=== PATIENT | female | born 1935 | race Caucasian/White ===

== ENCOUNTER → 2017-03-11 | Outpatient (CLI) | payer MEDICARE ==
--- NOTE | 2017-03-11 17:30 | Diagnostic Imaging Report ---
Bilateral screening mammogram. The current study was also evaluated with a Computer Aided Detection (CAD) system. INDICATION: Screening. No current complaints stated on the questionnaire. COMPARISON: 12/06/15. FINDINGS: The breasts are composed of scattered fibroglandular densities. There are scattered benign-appearing calcifications seen. Allowing for technique and positional differences, no suspicious change is seen. IMPRESSION: No significant change. ACR BI-RADS Category 2: Benign findings. Result letter will be mailed to the patient. Note: At least 10% of breast cancer is not imaged by mammography. Dictated by: Dictated on workstation # [id number]
== END ==
LOC: RAD 11:32
PROVIDERS: ATTEND Internal Medicine
DX: Z12.31 Encounter for screening mammogram for malignant neoplasm of breast (principal)
CPT/HCPCS: 77067

== ENCOUNTER → 2017-12-23 | Outpatient (CLI) | payer MEDICARE ==
--- NOTE | 2017-12-23 15:47 | Diagnostic Imaging Report ---
PROCEDURE: US carotid duplex, bilateral. TECHNIQUE: Multiple real-time grayscale images were obtained over the carotid arteries in various projections, bilaterally. Additional duplex Doppler and color Doppler images were also obtained. INDICATION: Carotid stenosis. FINDINGS: There are no focally elevated velocities in either internal carotid artery. The ICA/CCA ratios are within normal limits, bilaterally. There is antegrade flow in the vertebral arteries, bilaterally. Grayscale images demonstrate minimal carotid plaque, bilaterally. IMPRESSION: Minimal bilateral carotid plaque however spectral analysis shows no evidence of a hemodynamically significant stenosis in either internal carotid artery. Dictated by: Dictated on workstation # [id number]
== END ==
LOC: RAD 14:56
PROVIDERS: ATTEND Internal Medicine
DX: I65.23 Occlusion and stenosis of bilateral carotid arteries (principal)
CPT/HCPCS: 93880

== ENCOUNTER 2018-04-14 13:48 | Observation (INO) | payer MEDICARE ==
[~2018-04-14] VITALS: Ht 165.1 cm; Wt 65.8 kg
[2018-04-14] MEDS ORDERED: NITROGLYCERIN 0.4 MG SL TABS BTL 25'S SL PRN (14:30)
[2018-04-14] MEDS ORDERED: ALPRAZolam 0.25 MG (XANAX) TAB PO PRN (14:30)
[2018-04-14] MEDS ORDERED: DOCUSATE SODIUM 100 MG (COLACE) CAP PO PRN (14:30)
[2018-04-14] MEDS ORDERED: ONDANSETRON 4 MG/2 ML (SDV) Z0FRAN IVP PRN (14:30)
[2018-04-14] MEDS ORDERED: IBUPROFEN TABLET 200 MG TAB PO PRN (14:30)
[2018-04-14] MEDS ORDERED: ACETAMINOPHEN 500 MG TAB (TYLENOL) PO PRN (14:30)
[2018-04-14] MEDS ORDERED: HYDROcodone/APAP 5 MG/325 MG (LORTAB) TAB PO PRN (14:30)
[2018-04-14] MEDS ORDERED: ASPIRIN 81 MG CHEW (CHILDREN'S ASA) PO NR (14:30)
[2018-04-14] MEDS ORDERED: fentaNYL INJECTION 100 MCG/2 ML AMP IVP PRN (14:30)
[2018-04-14 14:43] VITALS: BP 147/90
[2018-04-14] MEDS ORDERED: CATHETER FLUSH 10 ML SYR IV PRN (14:45)
[2018-04-14] MEDS ORDERED: AMLO2.5T PO (14:54)
[2018-04-14] MEDS ORDERED: ALPR0.5T7 PO (14:54)
[2018-04-14] MEDS ORDERED: LOVA40TA2 PO (14:54)
[2018-04-14 14:58] LABS: BASOPHILS % (AUTO) 1 % (0-10); EOSINOPHILS % (AUTO) 1 % (0-10); HEMATOCRIT 41 % (35-52); HEMOGLOBIN 14.3 G/DL (11.5-16.0); LYMPHOCYTES # (AUTO) 2.1 X 10^3 (1.0-4.0); LYMPHOCYTES % (AUTO) 26 % (12-44); MEAN CORPUSCULAR HEMOGLOBIN 31 PG (25-34); MEAN CORPUSCULAR HGB CONC 35 G/DL (32-36); MEAN CORPUSCULAR VOLUME 90 FL (80-99); MEAN PLATELET VOLUME 8.5 FL (7.4-10.4); MONOCYTES # (AUTO) 0.8 X 10^3 (0.0-1.0); MONOCYTES % (AUTO) 10 % (0-12); NEUTROPHILS % (AUTO) 63 % (42-75); PLATELET COUNT 334 10^3/uL (130-400); RED BLOOD COUNT 4.58 10^6/uL (4.35-5.85); RED CELL DISTRIBUTION WIDTH 12.9 % (10.0-14.5); WHITE BLOOD COUNT 7.9 10^3/uL (4.3-11.0)
--- NOTE | 2018-04-14 15:07 | Diagnostic Imaging Report ---
INDICATION: Chest pain. TIME OF EXAMINATION: 02:49 p.m. COMPARISON: No prior studies are available for comparison. FINDINGS: The heart size is normal. There are tiny calcified nodules in both lungs, likely granulomas. No infiltrate or failure is detected. No effusion or pneumothorax is seen. IMPRESSION: No acute cardiopulmonary process is detected. Dictated by: Dictated on workstation # [id number]
[2018-04-14] MEDS ORDERED: CHOL20003 PO (15:09)
[2018-04-14] MEDS ORDERED: OMG1KC PO (15:09)
[2018-04-14] MEDS ORDERED: MULT-35 PO (15:09)
[2018-04-14] MEDS ORDERED: VIT1CAPS9 PO (15:09)
[2018-04-14 15:19] LABS: PROTHROMBIN TIME PATIENT 13.4 SEC (12.2-14.7)
[2018-04-14 15:20] LABS: ALANINE AMINOTRANSFERASE 11 U/L (0-55); ALBUMIN 4.8 GM/DL (3.2-4.5); ALKALINE PHOSPHATASE 54 U/L (40-136); BILIRUBIN,TOTAL 0.5 MG/DL (0.1-1.0); BUN/CREATININE RATIO 15; CALCIUM 10.1 MG/DL (8.5-10.1); CARBON DIOXIDE 24 MMOL/L (21-32); CHLORIDE 102 MMOL/L (98-107); CREATININE SERUM 0.73 MG/DL (0.60-1.30); GFR ESTIMATED > 60; GLUCOSE 92 MG/DL (70-105); MAGNESIUM 2.1 MG/DL (1.8-2.4); POTASSIUM 4.4 MMOL/L (3.6-5.0); SODIUM 135 MMOL/L (135-145); TOTAL PROTEIN 7.4 GM/DL (6.4-8.2)
[2018-04-14 16:39] VITALS: BP 128/69
--- NOTE | 2018-04-14 16:59 | Consultation-Cardiology ---
HPI-Cardiology Cardiology Consultation Date of Consultation 04/14/18 Date of Admission Time Seen by Provider: 16:56 Indication: Short of breath HPI 82 years old lady with history of hypertension, hyperlipidemia, has been her usual state of health until recently when she started complaining of generalized fatigue and loss of energy. Shortness of breath on exertion and heaviness in her arms. No significant chest pain. No palpitation, syncope or near syncopal episodes. She was seen in Dr. Wiggins's office and admitted directly for evaluation Home Medications & Allergies Allergies: Coded Allergies: Penicillins (Verified Allergy, Unknown, 04/14/18) Home Medication List Reviewed: Yes MZL-Ialgnq-Aawooy Hx Patient Social History Alcohol Use: Occasionally Uses Recreational Drug Use: No Smoking Status: Never a Smoker Recent Foreign Travel: No Recent Infectious Disease Expo: No Recent Hopitalizations: No Physical Abuse Screen: No Sexual Abuse: No Immunizations Up To Date Date of Pneumonia Vaccine: April 14, 2015 Past Medical History discussed below Family Medical History Family Medical Hx non contributory Constitutional: see HPI, malaise, weakness EENTM: see HPI, no symptoms reported Respiratory: see HPI; No cough; dyspnea on exertion; No hemoptysis, No orthopnea, No phlegm, No short of breath, No stridor, No wheezing, No other Cardiovascular: see HPI, chest pain (arms heaviness) Gastrointestinal: no symptoms reported, see HPI Genitourinary: no symptoms reported, see HPI Musculoskeletal: no symptoms reported, see HPI Skin: no symptoms reported, see HPI Psychiatric/Neurological: No Symptoms Reported, See HPI Reviewed Test Results Reviewed Test Results Lab Laboratory Tests Test 04/14/18 14:45 Range/Units White Blood Count 7.9 4.3-11.0 10^3/uL Red Blood Count 4.58 4.35-5.85 10^6/uL Hemoglobin 14.3 11.5-16.0 G/DL Hematocrit 41 35-52 % Mean Corpuscular Volume 90 80-99 FL Mean Corpuscular Hemoglobin 31 25-34 PG Mean Corpuscular Hemoglobin Concent 35 32-36 G/DL Red Cell Distribution Width 12.9 10.0-14.5 % Platelet Count 334 130-400 10^3/uL Mean Platelet Volume 8.5 7.4-10.4 FL Neutrophils (%) (Auto) 63 42-75 % Lymphocytes (%) (Auto) 26 12-44 % Monocytes (%) (Auto) 10 0-12 % Eosinophils (%) (Auto) 1 0-10 % Basophils (%) (Auto) 1 0-10 % Neutrophils # (Auto) 5.0 1.8-7.8 X 10^3 Lymphocytes # (Auto) 2.1 1.0-4.0 X 10^3 Monocytes # (Auto) 0.8 0.0-1.0 X 10^3 Eosinophils # (Auto) 0.0 0.0-0.3 10^3/uL Basophils # (Auto) 0.0 0.0-0.1 10^3/uL Prothrombin Time 13.4 12.2-14.7 SEC INR Comment 1.0 0.8-1.4 Activated Partial Thromboplast Time 24 24-35 SEC Sodium Level 135 135-145 MMOL/L Potassium Level 4.4 3.6-5.0 MMOL/L Chloride Level 102 98-107 MMOL/L Carbon Dioxide Level 24 21-32 MMOL/L Anion Gap 9 5-14 MMOL/L Blood Urea Nitrogen 11 7-18 MG/DL Creatinine 0.73 0.60-1.30 MG/DL Estimat Glomerular Filtration Rate > 60 BUN/Creatinine Ratio 15 Glucose Level 92 70-105 MG/DL Calcium Level 10.1 8.5-10.1 MG/DL Magnesium Level 2.1 1.8-2.4 MG/DL Total Bilirubin 0.5 0.1-1.0 MG/DL Aspartate Amino Transf (AST/SGOT) 18 5-34 U/L Alanine Aminotransferase (ALT/SGPT) 11 0-55 U/L Alkaline Phosphatase 54 40-136 U/L Myoglobin 22.0 10.0-92.0 NG/ML Troponin I < 0.30 <0.30 NG/ML B-Type Natriuretic Peptide 84.8 <100.0 PG/ML Total Protein 7.4 6.4-8.2 GM/DL Albumin 4.8 H 3.2-4.5 GM/DL Physical Exam Vital Signs Vital Signs - First Documented 04/14/18 04/14/18 14:42 14:43 Temp 100.1 Pulse 100 Resp 20 B/P (MAP) 147/90 (109) Pulse Ox 93 O2 Delivery Room Air Capillary Refill : General Appearance: No Apparent Distress, WD/WN Eyes: Bilateral Eye Normal Inspection, Bilateral Eye PERRL, Bilateral Eye EOMI HEENT: PERRL/EOMI, TMs Normal, Normal ENT Inspection, Pharynx Normal Neck: Full Range of Motion, Normal Inspection, Non Tender, Supple, Carotid Bruit Respiratory: Chest Non Tender, Lungs Clear, Normal Breath Sounds, No Accessory Muscle Use, No Respiratory Distress Cardiovascular: Regular Rate, Rhythm, No Edema, No Gallop, No JVD, No Murmur, Normal Peripheral Pulses Gastrointestinal: Normal Bowel Sounds, No Organomegaly, No Pulsatile Mass, Non Tender, Soft Back: Normal Inspection, No CVA Tenderness, No Vertebral Tenderness Extremity: Normal Capillary Refill, Normal Inspection, Normal Range of Motion, Non Tender, No Calf Tenderness, No Pedal Edema Neurologic/Psychiatric: Alert, Oriented x3, No Motor/Sensory Deficits, Normal Mood/Affect Skin: Normal Color, Warm/Dry Lymphatic: No Adenopathy A/P-Cardiology Admission Diagnosis Shortness of breath Chest pain nonspecific etiology Hypertension Hyperlipidemia Assessment/Plan Shortness of breath on exertion, heaviness in the arms, atypical presentation. EKG and chronic enzymes did not show any acute abnormality. Planning to evaluate stress test. Hypertension, restart home medications and monitor blood pressure Hyperlipidemia, monitor lipids. Clinical Quality Measures DVT/VTE Risk/Contraindication: Risk Factor Score Per Nursin RFS Level Per Nursing on Admit: 2=Moderate HERMANN MENDOZA MD April 14, 2018 16:59
--- OUTSIDE RECORDS SUMMARY | 2018-04-14 19:29 | XMS REPORT | Clinical Summary ---
Author Author User, JOSE CARLOS Organization [facility] [place] Address Unknown Phone Unavailable Allergies, Adverse Reactions, Alerts Allergy Name Reaction Description Start Date Severity Status Provider PENICILLIN Critical Active Viki Wiggins Conditions or Problems Problem Name Problem Code Onset Date Status Entry Date Provider Comment Standard Description Annotate HYPERTENSION, BENIGN ESSENTIAL, SEVERE 401.1 Resolved Viki Wiggins Benign essential hypertension HYPERCHOLESTEROLEMIA 272.0 Active Viki Wiggins Pure hypercholesterolemia MALIGNANT MELANOMA, HX OF V10.82 Active Viki Wiggins Personal history of malignant melanoma of skin BASAL CELL CARCINOMA, 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 Viki Wiggins Other and unspecified malignant neoplasm of skin of other and unspecified parts of face POLYARTHRALGIA 719.49 Resolved Viki Wiggins Pain in joint involving multiple sites INSOMNIA, CHRONIC 780.52 Active Viki Wiggins Insomnia, unspecified OSTEOARTHRITIS 715.90 Active Viki Wiggins Osteoarthrosis, unspecified whether generalized or localized, involving unspecified site OSTEOPENIA 733.90 Active Viki Wiggins Disorder of bone and cartilage, unspecified ANEMIA 285.9 Resolved Viki Wiggins Anemia, unspecified MELANOMA 172.9 Active Viki Wiggins Melanoma of skin, site unspecified ELEVATED BLOOD PRESSURE WITHOUT DIAGNOSIS OF HYPERTENSION 796.2 Resolved Viki Wiggins Elevated blood pressure reading without diagnosis of hypertension TONGUE DISORDER 529.9 Resolved Viki Wiggins Unspecified condition of the tongue INFLUENZA W/RESPIRATORY MANIFESTATION NEC 487.1 Resolved Viki Wiggins Influenza with other respiratory manifestations HYPERGLYCEMIA, MILD 790.6 Resolved Viki Wiggins Other abnormal blood chemistry VACCINE AGAINST DISEASE NEC V05.8 Resolved Viki Wiggins Need for prophylactic vaccination and inoculation against other specified disease HYPERTENSION, ACCELERATED OR MALIGNANT 401.0 Active Viki Wiggins Malignant essential hypertension DIZZINESS 780.4 Resolved Viki Wiggins Dizziness and giddiness BRONCHITIS 490 Inactive Viki Wiggins Bronchitis, not specified as acute or chronic BRONCHITIS 490 Active Viki Wiggins Bronchitis, not specified as acute or chronic Medication List Medication Instructions Start Date Stop Date Generic Name NDC Status Provider Patient Instruction ROBITUSSIN A-C 10-100 MG/5ML SYRUP 1 teaspoon PO Q 4-6 hr prn ROBITUSSIN A-C 10-100 MG/5ML SYRUP No Longer Active Viki Wiggins BIAXIN 500 MG TAB 1 PO BID CLARITHROMYCIN 17753488736 No Longer Active Viki Wiggins ROBITUSSIN A-C 10-100 MG/5ML SYRUP 1 teaspoon PO Q 4-6 hr prn ROBITUSSIN A-C 10-100 MG/5ML SYRUP No Longer Active Viki Wiggins BIAXIN 500 MG TAB 1 PO BID CLARITHROMYCIN 31302305382 No Longer Active Viki Wiggins NORVASC 2.5 MG TAB 1 PO QD AMLODIPINE BESYLATE 88192334888 Active Claudette Christianson LUTEIN CAPS 1 PO daily LUTEIN CAPS 73999218757 Active Viki Wiggins FOSAMAX 70 MG TABS 1 PO Qweek ALENDRONATE SODIUM 19490383841 No Longer Active Viki Wiggins ZOSTAVAX 15731 UNT/0.65ML SOLR 1 injection once to prevent shingles ZOSTER VACCINE LIVE 91145602529 No Longer Active Viki Wiggins VITAMIN D 1000 UNIT TABS 1 po daily CHOLECALCIFEROL 57668388151 Active Viki Wiggins LOVASTATIN 40 MG TABS 1 po daily LOVASTATIN 04783176060 Active Claudette Christianson ROBITUSSIN A-C 10-100 MG/5ML SYRUP 5cc PO Q 4-6 hr prn ROBITUSSIN A-C 10-100 MG/5ML SYRUP 51927085107 No Longer Active Viki Wiggins KEFLEX 500 MG CAP 1 PO TID for 7 days CEPHALEXIN 71805387670 No Longer Active Viki Wiggins TAMIFLU 75 MG CAPS 1 PO BID OSELTAMIVIR PHOSPHATE 57568981647 No Longer Active Viki Wiggins NIACIN 250 MG TABS 1 PO daily NIACIN 53625787271 No Longer Active Viki Wiggins LIPITOR 20 MG TABS 1/2 PO QD ATORVASTATIN CALCIUM 16128089644 No Longer Active Ashvin Patel ASPIRIN 81 MG CHEW TAB 1 PO QOD ASPIRIN 14609882723 Active Viki Wiggins TUMS 500 1250 MG CHEW 3-4 a day for calcium CALCIUM CARBONATE 93125320366 Active Viki Wiggins MULTIVITAMINS TABS 1 po daily MULTIPLE VITAMIN 99238022784 Active Viki Wiggins ALPRAZOLAM 0.5 MG TABS take 1 at HS prn ALPRAZOLAM 43064706933 Active Claudette Christianson Immunizations Vaccine Administration Date Value Standard Description Influenza vaccine given done influenza virus vaccine, unspecified formulation Vital Signs Date Name Value Unit Range Description blood pressure, diastolic - 8462-4 60 mm[Hg] BP acuña blood pressure, systolic - 8480-6 126 mm[Hg] BP sys pulse rate E&M - 8867-4 68 /min Heart rate respiratory rate E&M - 9279-1 14 /min Resp rate temperature E&M 98.3 [degF] Body temperature blood pressure, diastolic - 8462-4 64 mm[Hg] BP acuña blood pressure, systolic - 8480-6 144 mm[Hg] BP sys pulse rate E&M - 8867-4 80 /min Heart rate respiratory rate E&M - 9279-1 14 /min Resp rate temperature E&M 98.3 [degF] Body temperature Diagnostic Results Date Name Value Unit Range Description Clinical Lists Update: CBC,CMP,FLP,TSH,HgA1c - Chemistry Estimated Glomerular Filtration Rate (calc) 91 mL/min/1.73m2 glucose, plasma fasting 115 mg/dL albumin, serum 4.1 g/dL alkaline phosphatase, serum 95 U/L urea nitrogen, blood 7 mg/dL calcium, serum 9.5 mg/dL chloride, serum 96 mmol/L cholesterol, serum 154 mg/dL cholesterol/HDL ratio, serum, percent 2.9 anion gap, serum 12 sodium, serum 132 mmol/L triglyceride, serum, fasting 77 mg/dL bilirubin, serum, total 0.7 mg/dL alanine aminotransferase (SGPT), serum 43 U/L aspartate aminotransferase (SGOT), serum 41 U/L protein, total, serum 6.7 g/dL potassium, serum 4.3 mmol/L LDL cholesterol, serum 86 mg/dL thyroid stimulating hormone, serum 4.37 u[iU]/mL hemoglobin A1C, blood, as % of total hemoglobin 5.9 % HDL cholesterol, serum 53.0 mg/dL creatinine, serum 0.7 mg/dL carbon dioxide, venous blood 28.0 mmol/L Clinical Lists Update: CBC,CMP,FLP,TSH,HgA1c - Hematology leukocyte count, blood 10.9 10*3/mm3 mean corpuscular volume, RBC 99 fL red blood cell distribution width 13.4 % hemoglobin, blood 13.2 g/dL platelet count 404 10*3/mm3 erythrocyte (RBC) count 4.24 10*6/mm3 hematocrit, blood 42 % Encounters Code Encounter Date Provider Facility CPT-30009 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, 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, 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 CPT-66182 Ofc Vst, Est Level III 20:21:40 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 Wiggins DO, FACP CPT-00242 Ofc Vst, Est Level III 15:15:10 CDT Viki Wiggins DO, FACP CPT-25994 Ofc Vst, Est Level IV 14:16:01 CDT Viki Wiggins DO, FACP CPT-73172 Ofc Vst, Est Level IV 11:16:23 CDT Claudette Sammy Wiggins DO, FACP CPT-81579 Ofc Vst, Est Level IV 09:58:06 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 Wiggins DO, FACP CPT-87400 Ofc Vst, Est Level IV 14:54:22 CDT Viki Wiggins DO, FACP CPT-71849 Ofc Vst, Est Level IV 10:31:31 [employer]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 Kayleen Wiggins Viki S Wiggins, DO, FACP CPT-88693 Ofc Vst, Est Level V 11:37:59 CDT Viki Kayleen Feliciano Wiggins, DO, FACP CPT-77189 Ofc Vst, Est Level I 09:04:44 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 Kayleen Feliciano Wiggins, DO, FACP CPT-75586 Ofc Vst, Est Level IV 10:52:15 [employer]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sobeida Beyer Feliciano Wiggins, DO, FACP CPT-02029 Ofc Vst, Est Level IV 10:36:54 CDT Viki Kayleen Feliciano Wiggins, DO, FACP CPT-08647 Ofc Vst, Est Level III 09:15:38 [employer]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, DO, FACP CPT-08450 Ofc Vst, Est Level III 10:04:26 CDT Viki Kayleen Feliciano Wiggins, DO, FACP CPT-04466 Ofc Vst, Est Level IV 10:54:41 CDT Viki Kayleen Feliciano Wiggins, DO, FACP CPT-81586 Ofc Vst, Est Level IV 11:29:12 [employer]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 Wiggins [facility] [place] CPT-31009 Ofc Vst, Est Level III 16:42:12 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 Wiggins [facility] [place] CPT-71250 Ofc Vst, Est Level IV 11:03:44 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 Wiggins [facility] [place] CPT-76732 Ofc Vst, Est Level IV 13:09:33 [employer]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 Wiggins [facility] [place] CPT-18484 Ofc Vst, Est Level IV 13:09:21 CDT Viki Wiggins [facility] [place] CPT-75229 Ofc Vst, New Level III 12:51:53 CDT Viki Wiggins [facility] [place] Procedures Code Procedure Name Date Entry Date Standard Description CPT-G0439 Medicare Annual Wellness Visit 13:07:51 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 CPT-G8443 E-Prescribing Medication Sent 20:21:40 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 CPT-G8445 E-Prescribing Not sent due to no medication given 16:30: 35 CDT CPT-G0439 Medicare Annual Wellness Visit 16:30:35 CDT CPT-G8445 E-Prescribing Not sent due to no medication given 15:15: 10 CDT CPT-G8445 E-Prescribing Not sent due to no medication given 14:16: 01 CDT CPT-G0402 Medicare Annual Wellness Visit Initial 16:01:30 CDT
--- OUTSIDE RECORDS SUMMARY | 2018-04-14 19:29 | XMS REPORT | Clinical Summary ---
Author Author User, JOSE CARLOS Organization [facility] [place] Address Unknown Phone Unavailable Allergies, Adverse Reactions, [...] tongue INFLUENZA W/RESPIRATORY MANIFESTATION NEC 487.1 Resolved Viik Wiggins Influenza with other respiratory manifestations HYPERGLYCEMIA, [...] 500 MG TAB 1 PO BID CLARITHROMYCIN 88966369153 No Longer Active Viki Wiggins ROBITUSSIN A-C 10-100 MG/5ML SYRUP 1 teaspoon PO Q 4-6 hr prn ROBITUSSIN A-C 10-100 MG/5ML SYRUP No Longer Active Viki Wiggins BIAXIN 500 MG TAB 1 PO BID CLARITHROMYCIN 75381796977 No Longer Active Viki Wiggins NORVASC 2.5 MG TAB 1 PO QD AMLODIPINE BESYLATE 38944516072 Active Claudette Christianson LUTEIN CAPS 1 PO daily LUTEIN CAPS 21438154304 Active Viki Wiggins FOSAMAX 70 MG TABS 1 PO Qweek ALENDRONATE SODIUM 85465356792 No Longer Active Viki Wiggins ZOSTAVAX 44962 UNT/0.65ML SOLR 1 injection once to prevent shingles ZOSTER VACCINE LIVE 93122561848 No Longer Active Viki Wiggins VITAMIN D 1000 UNIT TABS 1 po daily CHOLECALCIFEROL 56297755496 Active Viki Wiggins LOVASTATIN 40 MG TABS 1 po daily LOVASTATIN 82186924617 Active Claudette Christianson ROBITUSSIN A-C 10-100 MG/5ML SYRUP 5cc PO Q 4-6 hr prn ROBITUSSIN A-C 10-100 MG/5ML SYRUP 53429614506 No Longer Active Viki Wiggins KEFLEX 500 MG CAP 1 PO TID for 7 days CEPHALEXIN 21884368736 No Longer Active Viki Wiggins TAMIFLU 75 MG CAPS 1 PO BID OSELTAMIVIR PHOSPHATE 99228505546 No Longer Active Viki Wiggins NIACIN 250 MG TABS 1 PO daily NIACIN 90034704106 No Longer Active Viki Wiggins LIPITOR 20 MG TABS 1/2 PO QD ATORVASTATIN CALCIUM 25041738160 No Longer Active Ashvin Patel ASPIRIN 81 MG CHEW TAB 1 PO QOD ASPIRIN 87292521607 Active Viki Wiggins TUMS 500 1250 MG CHEW 3-4 a day for calcium CALCIUM CARBONATE 57660599922 Active Viki Wiggins MULTIVITAMINS TABS 1 po daily MULTIPLE VITAMIN 98669889424 Active Viki Wiggins ALPRAZOLAM 0.5 MG TABS take 1 at HS prn ALPRAZOLAM 01066085462 Active Claudette Christianson Immunizations Vaccine Administration Date [...] % Encounters Code Encounter Date Provider Facility CPT-82146 Ofc Vst, Est Level III 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, 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 CPT-46639 Ofc Vst, Est Level III 20:21:40 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 Viki Wiggins DO, FACP CPT-17690 Ofc Vst, Est Level III 15:15:10 CDT Viki Wiggins DO, FACP CPT-65863 Ofc Vst, Est Level IV 14:16:01 CDT Viki Wiggins DO, FACP CPT-22393 Ofc Vst, Est Level IV 11:16:23 CDT Claudette Sammy Wiggins DO, FACP CPT-89771 Ofc Vst, Est Level IV 09:58:06 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 Viki Wiggins DO, FACP CPT-24954 Ofc Vst, Est Level IV 14:54:22 CDT Viki Wiggins DO, FACP CPT-11485 Ofc Vst, Est Level IV 10:31:31 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 Viki Kayleen Wiggins Viki S Wiggins, DO, FACP CPT-23474 Ofc Vst, Est Level V 11:37:59 CDT Viki Wiggins, DO, FACP CPT-05753 Ofc Vst, Est Level I 09:04:44 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 Viki Wiggins, DO, FACP CPT-64524 Ofc Vst, Est Level IV 10:52:15 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 Viki Wiggins, DO, FACP CPT-68891 Ofc Vst, Est Level IV 10:36:54 CDT Viki Wiggins, DO, FACP CPT-85265 Ofc Vst, Est Level III 09:15:38 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 Viki Wiggins, DO, FACP CPT-90084 Ofc Vst, Est Level III 10:04:26 CDT Vikisobeida Wiggins, DO, FACP CPT-03613 Ofc Vst, Est Level IV 10:54:41 CDT Viki Wiggins, DO, FACP CPT-09037 Ofc Vst, Est Level IV 11:29:12 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 Viki Wiggins [facility] [place] CPT-30492 Ofc Vst, Est Level III 16:42:12 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 Viki Wiggins [facility] [place] CPT-40943 Ofc Vst, Est Level IV 11:03:44 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 Viki Wiggins [facility] [place] CPT-84098 Ofc Vst, Est Level IV 13:09:33 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 Viki Wiggins [facility] [place] CPT-16122 Ofc Vst, Est Level IV 13:09:21 CDT Viki Wiggins [facility] [place] CPT-38857 Ofc Vst, New Level III 12:51:53 CDT Viki Wiggins [facility] [place] Procedures Code Procedure Name Date Entry Date Standard Description CPT-G0439 Medicare Annual Wellness Visit 13:07:51 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
--- OUTSIDE RECORDS SUMMARY | 2018-04-14 19:29 | XMS REPORT | Clinical Summary ---
Author Author User, JOSE CARLOS Organization [facility] Address Unknown Phone Unavailable Allergies, Adverse Reactions, [...] 500 MG TAB 1 PO BID CLARITHROMYCIN [id number] No Longer Active Viki Wiggins ROBITUSSIN A-C 10-100 MG/5ML SYRUP 1 teaspoon PO Q 4-6 hr prn ROBITUSSIN A-C 10-100 MG/5ML SYRUP No Longer Active Viki Wiggins BIAXIN 500 MG TAB 1 PO BID CLARITHROMYCIN 67562302261 No Longer Active Viki Wiggins NORVASC 2.5 MG TAB 1 PO QD AMLODIPINE BESYLATE 17527755776 Active Claudette Christianson LUTEIN CAPS 1 PO daily LUTEIN CAPS 62642077092 Active Viki Wiggins FOSAMAX 70 MG TABS 1 PO Qweek ALENDRONATE SODIUM 31036442938 No Longer Active Viki Wiggins ZOSTAVAX 06121 UNT/0.65ML SOLR 1 injection once to prevent shingles ZOSTER VACCINE LIVE 62822062478 No Longer Active Viki Wiggins VITAMIN D 1000 UNIT TABS 1 po daily CHOLECALCIFEROL 94248187529 Active Viki Wiggins LOVASTATIN 40 MG TABS 1 po daily LOVASTATIN 23581179557 Active Claudette Christianson ROBITUSSIN A-C 10-100 MG/5ML SYRUP 5cc PO Q 4-6 hr prn ROBITUSSIN A-C 10-100 MG/5ML SYRUP 01945763920 No Longer Active Viki Wiggins KEFLEX 500 MG CAP 1 PO TID for 7 days CEPHALEXIN 30111121013 No Longer Active Viki Wiggins TAMIFLU 75 MG CAPS 1 PO BID OSELTAMIVIR PHOSPHATE 83463428762 No Longer Active Viki Wiggins NIACIN 250 MG TABS 1 PO daily NIACIN 54207597445 No Longer Active Viki Wiggins LIPITOR 20 MG TABS 1/2 PO QD ATORVASTATIN CALCIUM 56199357314 No Longer Active Ashvin Patel ASPIRIN 81 MG CHEW TAB 1 PO QOD ASPIRIN 84324108188 Active Viki Wiggins TUMS 500 1250 MG CHEW 3-4 a day for calcium CALCIUM CARBONATE 58230793146 Active Viki Wiggins MULTIVITAMINS TABS 1 po daily MULTIPLE VITAMIN 58506720530 Active Viki Wiggins ALPRAZOLAM 0.5 MG TABS take 1 at HS prn ALPRAZOLAM 77860187527 Active Claudette Christianson Immunizations Vaccine Administration Date [...] % Encounters Code Encounter Date Provider Facility CPT-34994 Ofc Vst, Est Level III 15:28:05 PRACTICAL NURSE Viki Wiggins DO, FACP CPT-07804 Ofc Vst, Est Level III 20:21:40 PRACTICAL NURSE Viki Wiggins DO, FACP CPT-64829 Ofc Vst, Est Level III 15:15:10 CDT Viki Wiggins DO, FACP CPT-63697 Ofc Vst, Est Level IV 14:16:01 CDT Viki Wiggins DO, FACP CPT-65210 Ofc Vst, Est Level IV 11:16:23 CDT Claudette Sammy Wiggins DO, FACP CPT-33032 Ofc Vst, Est Level IV 09:58:06 PRACTICAL NURSE Viki Wiggins DO, FACP CPT-19971 Ofc Vst, Est Level IV 14:54:22 CDT Viki Wiggins DO, FACP CPT-20757 Ofc Vst, Est Level IV 10:31:31 PRACTICAL NURSE Viki Kayleen Wiggins Viki S Wiggins, DO, FACP CPT-43117 Ofc Vst, Est Level V 11:37:59 CDT Viki Kayleen Feliciano Wiggins, DO, FACP CPT-21481 Ofc Vst, Est Level I 09:04:44 PRACTICAL NURSE Viki Kayleen Feliciano Wiggins, DO, FACP CPT-07042 Ofc Vst, Est Level IV 10:52:15 PRACTICAL NURSE Vikisobeida Beyer Feliciano Wiggins, DO, FACP CPT-66223 Ofc Vst, Est Level IV 10:36:54 CDT Viki Kayleen Feliciano Wiggins, DO, FACP CPT-70918 Ofc Vst, Est Level III 09:15:38 PRACTICAL NURSE Viki Wiggins, DO, FACP CPT-46674 Ofc Vst, Est Level III 10:04:26 CDT Viki Kayleen Feliciano Wiggins, DO, FACP CPT-56564 Ofc Vst, Est Level IV 10:54:41 CDT Viki Kayleen Feliciano Wiggins, DO, FACP CPT-76200 Ofc Vst, Est Level IV 11:29:12 PRACTICAL NURSE Viki Wiggins [facility] CPT-37296 Ofc Vst, Est Level III 16:42:12 PRACTICAL NURSE Viki Wiggins [facility] CPT-69397 Ofc Vst, Est Level IV 11:03:44 PRACTICAL NURSE Viki Wiggins [facility] CPT-90065 Ofc Vst, Est Level IV 13:09:33 PRACTICAL NURSE Viki Wiggins [facility] CPT-46999 Ofc Vst, Est Level IV 13:09:21 CDT Viki Wiggins [facility] CPT-97045 Ofc Vst, New Level III 12:51:53 CDT Viki Wiggins [facility] Procedures Code Procedure Name Date Entry Date Standard Description CPT-G0439 Medicare Annual Wellness Visit 13:07:51 PRACTICAL NURSE CPT-G8443 E-Prescribing Medication Sent 20:21:40 PRACTICAL NURSE CPT-G8445 E-Prescribing Not sent due to no medication given 16:30: 35 CDT CPT-G0439 Medicare Annual Wellness Visit 16:30:35 CDT CPT-G8445 E-Prescribing Not sent due to no medication given 15:15: 10 CDT CPT-G8445 E-Prescribing Not sent due to no medication given 14:16: 01 CDT CPT-G0402 Medicare Annual Wellness Visit Initial 16:01:30 CDT
--- OUTSIDE RECORDS SUMMARY | 2018-04-14 19:29 | XMS REPORT | Clinical Summary ---
Author Author User, JOSE CARLOS Organization [facility] [place] Address Unknown Phone Unavailable Allergies, Adverse Reactions, [...] 500 MG TAB 1 PO BID CLARITHROMYCIN [id number] No Longer Active Viki Wiggins ROBITUSSIN A-C 10-100 MG/5ML SYRUP 1 teaspoon PO Q 4-6 hr prn ROBITUSSIN A-C 10-100 MG/5ML SYRUP No Longer Active Viki Wiggins BIAXIN 500 MG TAB 1 PO BID CLARITHROMYCIN 05155953402 No Longer Active Viki Wiggins NORVASC 2.5 MG TAB 1 PO QD AMLODIPINE BESYLATE 06403983451 Active Claudette Christianson LUTEIN CAPS 1 PO daily LUTEIN CAPS 90247537356 Active Viki Wiggins FOSAMAX 70 MG TABS 1 PO Qweek ALENDRONATE SODIUM 80640986176 No Longer Active Viki Wiggins ZOSTAVAX 16981 UNT/0.65ML SOLR 1 injection once to prevent shingles ZOSTER VACCINE LIVE 66803440928 No Longer Active Viki Wiggins VITAMIN D 1000 UNIT TABS 1 po daily CHOLECALCIFEROL 19097144782 Active Viki Wiggins LOVASTATIN 40 MG TABS 1 po daily LOVASTATIN 64003696640 Active Claudette Christianson ROBITUSSIN A-C 10-100 MG/5ML SYRUP 5cc PO Q 4-6 hr prn ROBITUSSIN A-C 10-100 MG/5ML SYRUP 85212411470 No Longer Active Viki Wiggins KEFLEX 500 MG CAP 1 PO TID for 7 days CEPHALEXIN 44704315389 No Longer Active Viki Wiggins TAMIFLU 75 MG CAPS 1 PO BID OSELTAMIVIR PHOSPHATE 79573980517 No Longer Active Viki Wiggins NIACIN 250 MG TABS 1 PO daily NIACIN 67129922307 No Longer Active Viki Wiggins LIPITOR 20 MG TABS 1/2 PO QD ATORVASTATIN CALCIUM 32572033230 No Longer Active Ashvin Patel ASPIRIN 81 MG CHEW TAB 1 PO QOD ASPIRIN 20178614182 Active Viki Wiggins TUMS 500 1250 MG CHEW 3-4 a day for calcium CALCIUM CARBONATE 65381613783 Active Viki Wiggins MULTIVITAMINS TABS 1 po daily MULTIPLE VITAMIN 25467540210 Active Viki Wiggins ALPRAZOLAM 0.5 MG TABS take 1 at HS prn ALPRAZOLAM 99765736959 Active Claudette Christianson Immunizations Vaccine Administration Date [...] % Encounters Code Encounter Date Provider Facility CPT-65559 Ofc Vst, Est Level III 15:28:05 UI UX DEVELOPER Viki Wiggins DO, FACP CPT-67065 Ofc Vst, Est Level III 20:21:40 UI UX DEVELOPER Viki Wiggins DO, FACP CPT-45484 Ofc Vst, Est Level III 15:15:10 CDT Viki Wiggins DO, FACP CPT-00921 Ofc Vst, Est Level IV 14:16:01 CDT Viki Wiggins DO, FACP CPT-79741 Ofc Vst, Est Level IV 11:16:23 CDT Claudette Sammy Wiggins DO, FACP CPT-76898 Ofc Vst, Est Level IV 09:58:06 UI UX DEVELOPER Viki Wiggins DO, FACP CPT-89274 Ofc Vst, Est Level IV 14:54:22 CDT Viki Wiggins DO, FACP CPT-74968 Ofc Vst, Est Level IV 10:31:31 UI UX DEVELOPER Viki Kayleen Wiggins Viki S Wiggins, DO, FACP CPT-89385 Ofc Vst, Est Level V 11:37:59 CDT Viki Wiggins, DO, FACP CPT-13006 Ofc Vst, Est Level I 09:04:44 UI UX DEVELOPER Viki Wiggins, DO, FACP CPT-54704 Ofc Vst, Est Level IV 10:52:15 UI UX DEVELOPER Viki Wiggins, DO, FACP CPT-65607 Ofc Vst, Est Level IV 10:36:54 CDT Viki Wiggins, DO, FACP CPT-79602 Ofc Vst, Est Level III 09:15:38 UI UX DEVELOPER Viki Wiggins, DO, FACP CPT-51683 Ofc Vst, Est Level III 10:04:26 CDT Vikisobeida Wiggins, DO, FACP CPT-78003 Ofc Vst, Est Level IV 10:54:41 CDT Viki Wiggins, DO, FACP CPT-46736 Ofc Vst, Est Level IV 11:29:12 UI UX DEVELOPER Viki Wiggins [facility] [place] CPT-84217 Ofc Vst, Est Level III 16:42:12 UI UX DEVELOPER Viki Wiggins [facility] [place] CPT-67462 Ofc Vst, Est Level IV 11:03:44 UI UX DEVELOPER Viki Wiggins [facility] [place] CPT-83341 Ofc Vst, Est Level IV 13:09:33 UI UX DEVELOPER Viki Wiggins [facility] [place] CPT-29338 Ofc Vst, Est Level IV 13:09:21 CDT Viki Wiggins [facility] [place] CPT-44210 Ofc Vst, New Level III 12:51:53 CDT Viki Wiggins [facility] [place] Procedures Code Procedure Name Date Entry Date Standard Description CPT-G0439 Medicare Annual Wellness Visit 13:07:51 UI UX DEVELOPER CPT-G8443 E-Prescribing Medication Sent 20:21:40 UI UX DEVELOPER CPT-G8445 E-Prescribing Not sent due to no medication given 16:30: 35 CDT CPT-G0439 Medicare Annual Wellness Visit 16:30:35 CDT CPT-G8445 E-Prescribing Not sent due to no medication given 15:15: 10 CDT CPT-G8445 E-Prescribing Not sent due to no medication given 14:16: 01 CDT CPT-G0402 Medicare Annual Wellness Visit Initial 16:01:30 CDT
--- OUTSIDE RECORDS SUMMARY | 2018-04-14 19:30 | XMS REPORT | Continuity of Care Document ---
Author Author [facility] Organization [facility] Address Unknown Phone Unavailable Allergies There is no data. Medications There is no data. Problems Date Dx Coded Attending Type Code Diagnosis Diagnosed By 11/15/2014 Ot V76.12 11/15/2014 Ot 733.90 11/15/2014 Ot V76.12 11/15/2014 Ot V76.12 11/15/2014 Ot V76.12 12/29/2014 JEN HERRERA DO Ot V76.12 12/06/2015 TIBURCIO HERRERA DOI Ot V76.12 12/06/2015 Ot V76.12 12/06/2015 Ot V76.12 12/06/2015 TIBURCIO HERRERA DOI Ot V76.12 12/27/2015 TIBURCIO HERRERA DOI Ot Z12.31 03/11/2017 Ot V76.12 OTH SCREEN MAMMO-MALIGN NEOPLASM OF ALEX 03/11/2017 Ot V76.12 OTH SCREEN MAMMO-MALIGN NEOPLASM OF ALEX 03/11/2017 JEN HERRERA DO Ot V76.12 OTH SCREEN MAMMO-MALIGN NEOPLASM OF ALEX 03/11/2017 JEN HERRERA DO Ot Z12.31 ENCNTR SCREEN MAMMOGRAM FOR MALIGNANT NE 03/11/2017 JEN HERRERA DO Ot Z12.31 ENCNTR SCREEN MAMMOGRAM FOR MALIGNANT NE 03/11/2017 TIBURCIO HERRERA DOI Ot Z12.31 ENCNTR SCREEN MAMMOGRAM FOR MALIGNANT NE 03/11/2017 JEN HERRERA DO Ot Z12.31 ENCNTR SCREEN MAMMOGRAM FOR MALIGNANT NE 03/12/2017 JEN HERRERA DO Ot Z12.31 ENCNTR SCREEN MAMMOGRAM FOR MALIGNANT NE 03/12/2017 JEN HERRERA DO Ot Z12.31 ENCNTR SCREEN MAMMOGRAM FOR MALIGNANT NE 04/09/2017 JEN HERRERA DO Ot Z12.31 ENCNTR SCREEN MAMMOGRAM FOR MALIGNANT NE 12/20/2017 HERRERA DO, JEN Ot 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 12/20/2017 HERRERA DO, JEN Ot 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 Results There is no data. Encounters ACCT No. Visit Date/Time Discharge Status Pt. 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 [id number] 03/11/2017 11:32:00 03/11/2017 23:59:59 CLS Outpatient SHARON DO JEN [facility] ENCOUNTER FOR SCREENING MAMMO FOR MALIGNANT NEOPLA [id number] 12/06/2015 12:48:00 12/06/2015 23:59:59 CLS Outpatient HERRERA DO, JEN [facility] SCREENING [id number] 11/30/2014 10:14:00 11/30/2014 23:59:59 CLS Outpatient HERRERA DO, JEN [facility] SCREENING [id number] 02/27/2013 14:24:00 Document Registration [id number] 10/10/2011 13:18:00 Document Registration [id number] 06/01/2010 09:45:00 Document Registration [id number] 05/31/2009 09:12:00 Document Registration
--- OUTSIDE RECORDS SUMMARY | 2018-04-14 19:30 | XMS REPORT | Clinical Summary ---
Author Author User, JOSE CARLOS Organization [facility] [place] Address Unknown Phone Unavailable Allergies, Adverse Reactions, [...] 500 MG TAB 1 PO BID CLARITHROMYCIN [id number] No Longer Active Viki Wiggins ROBITUSSIN A-C 10-100 MG/5ML SYRUP 1 teaspoon PO Q 4-6 hr prn ROBITUSSIN A-C 10-100 MG/5ML SYRUP No Longer Active Viki Wiggins BIAXIN 500 MG TAB 1 PO BID CLARITHROMYCIN 37844003591 No Longer Active Viki Wiggins NORVASC 2.5 MG TAB 1 PO QD AMLODIPINE BESYLATE 11725626822 Active Claudette Christianson LUTEIN CAPS 1 PO daily LUTEIN CAPS 91482682883 Active Viki Wiggins FOSAMAX 70 MG TABS 1 PO Qweek ALENDRONATE SODIUM 77039272107 No Longer Active Viki Wiggins ZOSTAVAX 09112 UNT/0.65ML SOLR 1 injection once to prevent shingles ZOSTER VACCINE LIVE 60283687498 No Longer Active Viki Wiggins VITAMIN D 1000 UNIT TABS 1 po daily CHOLECALCIFEROL 93596429770 Active Viki Wiggins LOVASTATIN 40 MG TABS 1 po daily LOVASTATIN 73486399439 Active Claudette Christianson ROBITUSSIN A-C 10-100 MG/5ML SYRUP 5cc PO Q 4-6 hr prn ROBITUSSIN A-C 10-100 MG/5ML SYRUP 82646161976 No Longer Active Viki Wiggins KEFLEX 500 MG CAP 1 PO TID for 7 days CEPHALEXIN 08650475397 No Longer Active Viki Wiggins TAMIFLU 75 MG CAPS 1 PO BID OSELTAMIVIR PHOSPHATE 89910649019 No Longer Active Viki Wiggins NIACIN 250 MG TABS 1 PO daily NIACIN 44402959731 No Longer Active Viki Wiggins LIPITOR 20 MG TABS 1/2 PO QD ATORVASTATIN CALCIUM 44995449401 No Longer Active Ashvin Patel ASPIRIN 81 MG CHEW TAB 1 PO QOD ASPIRIN 34818429167 Active Viki Wiggins TUMS 500 1250 MG CHEW 3-4 a day for calcium CALCIUM CARBONATE 46521799991 Active Viki Wiggins MULTIVITAMINS TABS 1 po daily MULTIPLE VITAMIN 52211326776 Active Viki Wiggins ALPRAZOLAM 0.5 MG TABS take 1 at HS prn ALPRAZOLAM 73845620842 Active Claudette Christianson Immunizations Vaccine Administration Date [...] % Encounters Code Encounter Date Provider Facility CPT-17239 Ofc Vst, Est Level III 15:28:05 APPLE SOLUTIONS CONSULTANT Viki Wiggins DO, FACP CPT-22877 Ofc Vst, Est Level III 20:21:40 APPLE SOLUTIONS CONSULTANT Viki Wiggins DO, FACP CPT-61893 Ofc Vst, Est Level III 15:15:10 CDT Viki Wiggins DO, FACP CPT-35556 Ofc Vst, Est Level IV 14:16:01 CDT Viki Wiggins DO, FACP CPT-12068 Ofc Vst, Est Level IV 11:16:23 CDT Claudette Sammy Wiggins DO, FACP CPT-53148 Ofc Vst, Est Level IV 09:58:06 APPLE SOLUTIONS CONSULTANT Viki Wiggins DO, FACP CPT-86243 Ofc Vst, Est Level IV 14:54:22 CDT Viki Wiggins DO, FACP CPT-07644 Ofc Vst, Est Level IV 10:31:31 APPLE SOLUTIONS CONSULTANT Viki Kayleen Wiggins Viki S Wiggins, DO, FACP CPT-42214 Ofc Vst, Est Level V 11:37:59 CDT Viki Kayleen Feliciano Wiggins, DO, FACP CPT-57335 Ofc Vst, Est Level I 09:04:44 APPLE SOLUTIONS CONSULTANT iVki Kayleen Feliciano Wiggins, DO, FACP CPT-77626 Ofc Vst, Est Level IV 10:52:15 APPLE SOLUT[employer] CONSULTANT Vikisobeida Beyer Feliciano Wiggins, DO, FACP CPT-92672 Ofc Vst, Est Level IV 10:36:54 CDT Viki Kayleen Feliciano Wiggins, DO, FACP CPT-45020 Ofc Vst, Est Level III 09:15:38 APPLE SOLUT[employer] CONSULTANT Viki Wiggins, DO, FACP CPT-40016 Ofc Vst, Est Level III 10:04:26 CDT Viki Kayleen Feliciano Wiggins, DO, FACP CPT-80420 Ofc Vst, Est Level IV 10:54:41 CDT Viki Kayleen Feliciano Wiggins, DO, FACP CPT-12774 Ofc Vst, Est Level IV 11:29:12 APPLE SOLUT[employer] CONSULTANT Viki Wiggins [facility] [place] CPT-40459 Ofc Vst, Est Level III 16:42:12 APPLE SOLUTIONS CONSULTANT Viki Wiggins [facility] [place] CPT-00512 Ofc Vst, Est Level IV 11:03:44 APPLE SOLUTIONS CONSULTANT Viki Wiggins [facility] [place] CPT-39093 Ofc Vst, Est Level IV 13:09:33 APPLE SOLUTIONS CONSULTANT Viki Wiggins [facility] [place] CPT-00227 Ofc Vst, Est Level IV 13:09:[address] [facility] [place] CPT-06775 Ofc Vst, New Level III 12:51:[address] [facility] [place] Procedures Code Procedure Name Date Entry Date Standard Description CPT-G0439 Medicare Annual Wellness Visit 13:07:51 APPLE SOLUTIONS CONSULTANT CPT-G8443 E-Prescribing Medication Sent 20:21:40 APPLE SOLUTIONS CONSULTANT CPT-G8445 E-Prescribing Not sent due to no medication given 16:30: 35 CDT CPT-G0439 Medicare Annual Wellness Visit 16:30:35 CDT CPT-G8445 E-Prescribing Not sent due to no medication given 15:15: 10 CDT CPT-G8445 E-Prescribing Not sent due to no medication given 14:16: 01 CDT CPT-G0402 Medicare Annual Wellness Visit Initial 16:01:30 CDT
[2018-04-14 20:00] VITALS: BP 126/79
[2018-04-14] MEDS: CATHETER FLUSH 10 ML SYR IV SCH (22:00)
[2018-04-15] VITALS: BP 124/69
[2018-04-15 03:55] LABS: CHOLESTEROL 161 MG/DL (< 200); HDL CHOLESTEROL 58 MG/DL (40-60); TRIGLYCERIDES 74 MG/DL (<150); VLDL CHOLESTEROL 15 MG/DL (5-40)
[2018-04-15 04:00] VITALS: BP 105/60
[2018-04-15] MEDS: CATHETER FLUSH 10 ML SYR IV SCH (06:11)
--- NOTE | 2018-04-15 07:32 | Cardiology Progress Note ---
Subjective Date Seen by Provider: April 15, 2018 Time Seen by Provider: 07:31 Subjective/Events-last exam Patient is laying down in bed, feeling better. Denied any further episode of tightness or discomfort. Planning for stress test today Review of Systems General: No Chills, No Night Sweats, No Fatigue, No Malaise, No Appetite, No Other HEENT: No Head Aches, No Visual Changes, No Eye Pain, No Ear Pain, No Dysphasia , No Sinus Congestion, No Post Nasal Drip, No Sore Throat, No Other Pulmonary: No Dyspnea, No Cough, No Pleuritic Chest Pain, No Other Cardiovascular: No: Chest Pain, Palpitations, Orthopnea, Paroxysmal Noc. Dyspnea, Edema, Lt Headedness, Other Objective-Cardiology Exam Last Set of Vital Signs Vital Signs 04/15/18 04:00 Temp 97.9 Pulse 72 Resp 18 B/P (MAP) 105/60 (75) Pulse Ox 97 O2 Delivery Room Air Capillary Refill : I&O Intake and Output 04/15/18 00:00 Intake Total 600 ml Balance 600 ml Intake Oral 600 ml # Voids 2 Daily Weight Change No General: Alert, Oriented X3, Cooperative HEENT: Atraumatic, PERRLA Neck: Supple, No JVD, No Thyromegaly Lungs: Clear to Auscultation, Normal Air Movement Heart: Regular Rate, Normal S1, Normal S2, No Murmurs Abdomen: Normal Bowel Sounds, Soft, No Tenderness, No Hepatosplenomegaly, No Masses Extremities: No Clubbing, No Cyanosis, No Edema, Normal Pulses, No Tenderness/ Swelling Skin: No Rashes, No Breakdown, No Significant Lesion Neuro: Normal Gait, Normal Speech, Strength at 5/5 X4 Ext, Normal Tone, Sensation Intact Psych/Mental Status: Mental Status NL, Mood NL Results Lab Laboratory Tests 04/14/18 14:45 A/P-Cardiology Admission Diagnosis Shortness of breath Chest pain nonspecific etiology Hypertension Hyperlipidemia Assessment/Plan Shortness of breath on exertion, heaviness in the arms, atypical presentation. EKG and chronic enzymes did not show any acute abnormality. Planning for stress test today. Mild pulmonary hypertension noted on echocardiogram, normal left ventricular size and function, mild to moderate tricuspid regurgitation. Hypertension, planning for stress test today Hyperlipidemia, controlled, continue to monitor lipids. Clinical Quality Measures DVT/VTE Risk/Contraindication: Risk Factor Score Per Nursin RFS Level Per Nursing on Admit: 2=Moderate HERMANN MENDOZA MD April 15, 2018 07:32
[2018-04-15 08:03] VITALS: BP 160/81
--- NOTE | 2018-04-15 08:32 | Short Stay Summary-Hospitalist ---
History of Present Illness HPI/Chief Complaint CC: Chest pressure HPI: This is an 82-year-old white female clinic patient of mine for many years with a past medical history of hypertension and osteoarthritis who presents to my office with vague complaints of chest pressure and arm heaviness. She attempted to drive to [place] to her granddaughter's graduation on Saturday was 10 [address] out [address] and could no longer feel capable of driving to the [facility]. The family wanted her to go to the ER but she decided to wait to see me on Saturday at the clinic. She denied any significant chest pain or any issues except for shortness of breath on her recent hike. She is very active and maintains a good tenderness regimen exercise routine and overall had not had any chest pain during exertion recently. At this current time she has not had any further chest pain but she does have difficulty with insomnia but otherwise she is undergoing a Lexiscan by Dr. Osorio and if all of the test are resulted to be normal she will go home with close follow-up with me in the clinic next week. Source: patient Date Seen 04/15/18 Time Seen by Provider: 08:15 Attending Physician Robby Crocker MD PCP Jen Herrera DO Referring Physician Date of Admission April 14, 2018 at 14:23 Home Medications & Allergies Home Medications Reviewed patient Home Medication Reconciliation performed by pharmacy medication reconciliations line service technician and/or nursing. Patients Allergies have been reviewed. Allergies Allergies Coded Allergies Penicillins (Verified Allergy, Unknown, 04/14/18) Past Xjdhrhn-Qvsaxc-Ecttle Hx Past Med/Social Hx: Reviewed Nursing Past Med/Soc Hx, Reviewed and Corrections made Patient Social History Marrital Status: Employed/Student: retired Alcohol Use: Occasionally Uses Alcohol Beverage of Choice: Beer Recreational Drug Use: No Smoking Status: Never a Smoker Physical Abuse Screen: No Sexual Abuse: No Recent Foreign Travel: No Contact w/other who traveled: No Recent Hopitalizations: No Recent Infectious Disease Expo: No Immunizations Up To Date Date of Pneumonia Vaccine: April 14, 2015 Seasonal Allergies Seasonal Allergies: No Past Medical History Currently Using CPAP: No Currently Using BIPAP: No Cardiac: High Cholesterol, Hypertension Cancer: Skin Did You Recieve Any Treatments: No Cancer: melanoma Psychosocial: Depression History of Blood Disorders: No Adverse Reaction to Blood Forman: No Family History Hypertension Review of Systems Constitutional: see HPI, dizziness, weakness EENTM: no symptoms reported Respiratory: dyspnea on exertion Cardiovascular: chest pain Gastrointestinal: no symptoms reported Genitourinary: no symptoms reported Musculoskeletal: no symptoms reported Skin: no symptoms reported Psychiatric/Neurological: Anxiety, Depressed All Other Systems Reviewed Negative Unless Noted: Yes Physical Exam Physical Exam Vital Signs Vital Signs - First Documented 04/14/18 04/14/18 14:42 14:43 Temp 100.1 Pulse 100 Resp 20 B/P (MAP) 147/90 (109) Pulse Ox 93 O2 Delivery Room Air Capillary Refill : General Appearance: No Apparent Distress, WD/WN, Chronically ill Eyes: Bilateral Eye Normal Inspection, Bilateral Eye PERRL HEENT: PERRL/EOMI, Normal ENT Inspection, Pharynx Normal Neck: Full Range of Motion, Normal Inspection, Non Tender, Supple, Carotid Bruit Respiratory: Chest Non Tender, Lungs Clear, Normal Breath Sounds, No Accessory Muscle Use, No Respiratory Distress Cardiovascular: Regular Rate, Rhythm, No Edema, No Gallop, No JVD, No Murmur, Normal Peripheral Pulses Gastrointestinal: Normal Bowel Sounds, No Organomegaly, No Pulsatile Mass, Non Tender, Soft Back: Normal Inspection, No CVA Tenderness, No Vertebral Tenderness Extremity: Normal Capillary Refill, Normal Inspection, Normal Range of Motion, Non Tender, No Calf Tenderness, No Pedal Edema Neurologic/Psychiatric: Alert, Oriented x3, No Motor/Sensory Deficits, Normal Mood/Affect Skin: Normal Color, Warm/Dry Lymphatic: No Adenopathy Results Results/Procedures Labs Laboratory Tests 04/14/18 14:45 Patient resulted labs reviewed. Short Stay Diagnosis Discharge Diagnosis-Short Stay Admission Diagnosis Assessment: Vague chest pressure/chest pain in need of risk stratification per cardiology Hypertension Hyperlipidemia Depression Insomnia Anxiety Final Discharge Diagnosis Assessment: Vague chest pressure/chest pain in need of risk stratification per cardiology Hypertension Hyperlipidemia Depression Insomnia Anxiety Conclusion Plan Plan: Await Lexiscan results and disposition per cardiology which I appreciate their input and expertise Follow-up with me in the clinic next week [place] trial at night for severe insomnia Monitor closely and return if symptoms recur Diagnosis/Problems Diagnosis/Problems (1) Chest pain Status: Acute Qualifiers: Qualified Codes: R07.9 - Chest pain, unspecified (2) Hypertension Status: Chronic Qualifiers: Qualified Codes: I10 - Essential (primary) hypertension (3) Hyperlipidemia Status: Chronic Qualifiers: Qualified Codes: E78.2 - Mixed hyperlipidemia (4) Depression Status: Chronic Qualifiers: Qualified Codes: F32.9 - Major depressive disorder, single episode, unspecified (5) Anxiety (6) Insomnia Status: Chronic Qualifiers: Qualified Codes: 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
[2018-04-15] MEDS ORDERED: ZOLP5TAB PO (08:34)
[2018-04-15] MEDS ORDERED: ALPRAZolam 0.5 MG (XANAX) TAB PO PRN (08:45)
[2018-04-15] MEDS ORDERED: MULTIVIT W/MINERALS TAB (THERAGRAN M) PO SCH (09:00)
[2018-04-15] MEDS ORDERED: VITAMIN D3 1,000 UNITS (CHOLECALCIFEROL) TABLET PO SCH (09:00)
[2018-04-15] MEDS ORDERED: amLODIPine 2.5MG (NORVASC) TAB PO SCH (09:00)
[2018-04-15] MEDS ORDERED: NON-FORMULARY MEDICATION 1 EA EA (Vit C/Vit E/Lutein/Min/Omega-3 (Ocuvite Softgel) 1 CAP) PO SCH (09:00)
[2018-04-15 09:35] VITALS: BP 128/72
[2018-04-15 11:08] VITALS: BP 125/68
[2018-04-15 13:00] VITALS: BP 148/76
--- NOTE | 2018-04-15 17:32 | STRESS TEST ---
DATE OF SERVICE: 04/15/2018 EXERCISE MYOVIEW STRESS TEST REPORT INDICATION: Chest pain. Baseline heart rate is 86. Baseline blood pressure 145/78. Baseline EKG is sinus rhythm with no ischemic changes. SUMMARY: The patient was injected with 10.53 mCi of technetium-99 Myoview and the resting images were obtained. Then, she started exercising with a baseline heart rate, blood pressure and EKG mentioned above. She was able to exercise for a total of 2 minutes and 30 seconds on standard Zbigniew protocol, achieving maximum heart rate of 143, which is 100% of her maximal expected heart rate. With peak exercise level, EKG was showing nondiagnostic changes. Blood pressure was 205/66. During recovery, heart rate and blood pressure returned to baseline. EKG returned to baseline. The resting and stress images were reviewed and compared in the short axis, horizontal long axis, and vertical long axis views. Review of the images showed good radiotracer uptake with no significant ischemia or infarction, breast attenuation with typical female pattern. SSS is 3, SDS 3, TID value 1.14. On the gated images, the left ventricle appeared to be normal size with normal contractility. Calculated ejection fraction 83%. CONCLUSION: 1. Poor exercise tolerance, a total of 2 minutes 30 seconds on standard Zbigniew protocol, total of 4 METS achieving 100% of maximum expected heart rate. 2. Severe hypertensive response to exercise returned to baseline during recovery. 3. Nondiagnostic EKG changes with exercise returned to baseline during recovery. 4. Breast attenuation with no significant ischemia or infarction on SPECT images. 5. Normal left ventricular size with normal contractility. Calculated ejection fraction 83%. Job ID: [id number] DocumentID: [id number] Dictated Date: 04/15/2018 14:17:47 Ion Exchange Operator Date: 04/15/2018 17:31:13 Dictated By: HERMANN MENDOZA MD
[2018-04-15] MEDS ORDERED: SIMvastatin 20 MG (ZOCOR) TAB PO SCH (21:00)
[2018-04-15] MEDS ORDERED: OMEGA 3 (FISH OIL) 1000 MG CAP PO SCH (21:00)
== END 2018-04-15 13:21 | disposition home or self-care (01) ==
LOC: UNDOADMOB 14:23 → ICU 14:23 → UNDODISOB 04-15 13:35
PROVIDERS: ADMIT Internal Medicine; ATTEND Internal Medicine
DX: R07.9 Chest pain, unspecified (principal); I10 Essential (primary) hypertension; E78.2 Mixed hyperlipidemia; F32.9 Major depressive disorder, single episode, unspecified; F51.01 Primary insomnia; Z66 Do not resuscitate; F41.9 Anxiety disorder, unspecified; I27.20 Pulmonary hypertension, unspecified; R06.02 Shortness of breath
CPT/HCPCS: 36415; 71045; 78452; 80053; 80061; 83735; 83874; 83880; 84484; 85025; 85610; 85730; 93005; 93017; 93306; 99211

== ENCOUNTER → 2018-04-29 | Outpatient (CLI) | payer MEDICARE ==
[~2018-04-29] MED LIST: ALPR0.5T7 PO; AMLO2.5T PO; CHOL20003 PO; IOHEXOL 350 MG/ML 100 ML (OMNIPAQUE 350) VIAL IV ONE; LOVA40TA2 PO; MULT-35 PO; NS 250 ML (IVPB) BAG IV ONE; OMG1KC PO; VIT1CAPS9 PO; ZOLP5TAB PO
--- NOTE | 2018-04-29 08:11 | Diagnostic Imaging Report ---
PROCEDURE: CT chest with contrast only. TECHNIQUE: Multiple contiguous axial images were obtained through the chest after administration of intravenous contrast. INDICATION: Cough, shortness of air, dyspnea. No previous for direct comparison. Correlation made with most recent chest x-ray performed 04/14/2018. The thoracic aorta is patent and nonaneurysmal. Heart heart and pericardium unremarkable. There is a small retrocardiac hiatal hernia. There is no pleural or pericardial effusion and there is no pneumothorax. There are multiple scattered pulmonary micronodules involving all five lobes all of which measured 3 mm or less and are favoring a subpleural distribution suggestive of granulomatous residua. There are few calcified pulmonary subpleural nodules consistent with granulomas, the noncalcified lesions likely a granulomatous as well. These are too small to be demonstrated on previous radiographs. While benignity strongly favored, I do feel followup chest CT in six months time is appropriate. No dominant or particularly suspicious lung mass, some calcified hilar and mediastinal lymph nodes on a granulomatous basis are noted as well. No acute soft tissue or osseous chest wall pathology. The visualized upper abdomen reveals splenic calcified granulomata, intact adrenal glands and no acute pathology. IMPRESSION: Findings most consistent with benign pulmonary parenchymal, thoracic jarrett and splenic granulomatous residua. Many of the pulmonary nodules are noncalcified while likely granulomatous a secondary neoplastic process superimposed could not be entirely excluded although felt substantially less likely. CT followup in six months time suggested. Study otherwise normal. Dictated by: Dictated on workstation # [id number]
== END ==
LOC: RAD 07:28
PROVIDERS: ATTEND Internal Medicine
DX: R91.8 Other nonspecific abnormal finding of lung field (principal)
CPT/HCPCS: 71260

== ENCOUNTER → 2018-06-20 | Outpatient (CLI) | payer MEDICARE ==
[~2018-06-20] MED LIST changes: -IOHEXOL 350 MG/ML 100 ML (OMNIPAQUE 350) VIAL IV ONE; -NS 250 ML (IVPB) BAG IV ONE
--- NOTE | 2018-06-20 12:58 | Diagnostic Imaging Report ---
Digital mammogram bilateral screening with 3-D tomosynthesis. This study was compared to the prior exams of 03/11/2017, 12/06/2015, and 12/10/2014. At this time, there are no current complaints. The current study was also evaluated with a Computer Aided Detection (CAD) system. FINDINGS: The fibroglandular tissue in both breasts is heterogeneously dense. This does limit the sensitivity of this exam. On the craniocaudal view of the right breast in the lateral aspect of the breast approximately 6 cm from the nipple, there is a small 6 mm nodular density. This finding was not clearly evident on the prior exam nor can it be identified with certainty on the MLO view of this study. This could be in the central portion of the breast on the tomographic view 13 of 58 of the MLO series. I would recommend that a compression view of this area be obtained in the CC and MLO projections for further study. Ultrasound should also be performed. The left breast is unchanged. IMPRESSION: Additional mammographic views and ultrasound of the right breast would be recommended for further study. ACR BI-RADS Category 0: Incomplete. (Needs additional imaging evaluation). Result letter will be mailed to the patient. Note: At least 10% of breast cancer is not imaged by mammography. Dictated by: Dictated on workstation # [id number]
== END ==
LOC: RAD 10:03
PROVIDERS: ATTEND Internal Medicine
DX: Z12.31 Encounter for screening mammogram for malignant neoplasm of breast (principal)
CPT/HCPCS: 77067

== ENCOUNTER → 2018-06-30 | Outpatient (CLI) | payer MEDICARE ==
--- NOTE | 2018-06-30 14:18 | Diagnostic Imaging Report ---
Indication: Right breast density. Patient presents for additional views. Correlation is made with recent screening study from 06/20/2018. Unilateral right 2-D and 3-D diagnostic mammography was performed including spot compression CC and MLO views as well as conventional 90 degree lateral view. Additional views confirm somewhat circumscribed density in the lower outer right breast approximately 5-6 cm from the nipple. No associated malignant appearing microcalcifications are seen. Impression: BI-RADS zero Persistent density lower outer right breast 5-6 cm from the nipple. Further evaluation of this area with ultrasound is recommended. Dictated by: Dictated on workstation # [id number]
--- NOTE | 2018-06-30 15:40 | Diagnostic Imaging Report ---
Indication: Right breast density. COMPARISON: Correlation is made with the diagnostic mammogram from earlier this same day. FINDINGS: Sonographic interrogation of the outer right breast was performed. There is a somewhat ill-defined hypoechoic solid appearing mass at the 9 o'clock location of the right breast 5 cm from the nipple. This demonstrates posterior acoustic shadowing. This also demonstrates internal vascularity. This measures 7 mm x 4 mm x 5 mm. This does correspond to the region of density on the recent mammography. The right axilla is unremarkable. IMPRESSION: There is a 7 mm hypoechoic solid-appearing mass at the 9 o'clock location of the right breast 5 cm from the nipple. The features are concerning for a small breast neoplasm. Tissue sampling is recommended. This would be amenable to ultrasound-guided core biopsy. ACR BI-RADS Category 4: Suspicious abnormality. Dictated by: Dictated on workstation # [id number]
== END ==
LOC: RAD 13:28
PROVIDERS: ATTEND Internal Medicine
DX: R92.8 Other abnormal and inconclusive findings on diagnostic imaging of breast (principal)

== ENCOUNTER → 2018-07-01 | Outpatient (CLI) | payer MEDICARE ==
[~2018-07-01] VITALS: Ht 165.1 cm; Wt 65.8 kg
[~2018-07-01] MED LIST changes: +LIDOCAINE 1% INJ 20 ML 20 ML VIAL INJ ONE; +LIDOCAINE 1% INJ 20 ML 20 ML VIAL ONE
[2018-07-01 14:33] VITALS: BP 121/60
[2018-07-01 15:10] VITALS: BP 118/74
--- NOTE | 2018-07-01 18:16 | Diagnostic Imaging Report ---
INDICATION: Right breast mass. PROCEDURE: The patient presents for ultrasound-guided core biopsy. DESCRIPTION OF PROCEDURE: The patient was brought to the procedure room, placed on the table in the supine position. Ultrasound imaging over the right breast was performed to evaluate appropriate entry site. The right breast was prepped and draped in the usual sterile fashion. A small amount of 1% lidocaine was utilized for local anesthesia. A 14-gauge Achieve needle was advanced, placed with its tip adjacent to the hypoechoic mass at the 9 o'clock location of the right breast approximately 5 cm from the nipple. A total of 4 passes were made. A localizer clip was then deployed. Hemostasis was obtained using manual compression. IMPRESSION: Ultrasound-guided core biopsy of the hypoechoic mass at the 9 o'clock location of the right breast 5 cm from the nipple. Pathology results are currently pending. Dictated by: Dictated on workstation # [id number]
--- NOTE | 2018-07-01 18:46 | Diagnostic Imaging Report ---
INDICATION: Right breast density. Patient is status post ultrasound-guided biopsy. FINDINGS: Unilateral right CC and ML 2D mammography was performed postbiopsy and compared with recent studies from 06/30/2018 and 06/20/2018. Biopsy clip is identified in the outer aspect of the right breast at mid depth. This appears to be in close proximity to the nodular density noted on diagnostic mammography. IMPRESSION: Right breast biopsy and marker clip placement. Pathology results are pending. Dictated by: Dictated on workstation # [id number]
== END ==
LOC: RAD 14:09
PROVIDERS: ATTEND Internal Medicine
DX: C50.911 Malignant neoplasm of unspecified site of right female breast (principal)
CPT/HCPCS: 19083

== ENCOUNTER 2018-07-25 05:31 | Outpatient (CLI) | payer MEDICARE ==
[~2018-07-25] VITALS: Ht 165.1 cm; Wt 68.0 kg
[~2018-07-25 05:31] MED LIST changes: +ACHD5005 PO; -AMLO2.5T PO; +AMLO2.5T3 PO; +AMLO5TAB7 PO; -LIDOCAINE 1% INJ 20 ML 20 ML VIAL INJ ONE; -LIDOCAINE 1% INJ 20 ML 20 ML VIAL ONE; +RT-ALBUINH IH
[2018-07-30] MEDS ORDERED: ACHD5005 PO (10:52)
== END 2018-07-25 10:43 | disposition home or self-care (01) ==
LOC: PREOP 05:31
PROVIDERS: ATTEND Surgery
DX: Z01.818 Encounter for other preprocedural examination (principal)

== ENCOUNTER 2018-07-30 08:22 | Day surgery (SDC) | payer MEDICARE ==
[~2018-07-30] VITALS: Ht 165.1 cm; Wt 68.0 kg
--- OUTSIDE RECORDS SUMMARY | 2018-07-30 08:28 | XMS REPORT | Continuity of Care Document ---
Author Author [facility] Organization [facility] Address Unknown Phone Unavailable Allergies Active Description Code Type Severity Reaction Onset Reported/Identified Relationship to Patient Clinical Status Yes Penicillins [id number] Drug Allergy Unknown N/A 04/14/2018 Medications There is no data. Problems Date Dx Coded Attending Type Code Diagnosis Diagnosed By 11/15/2014 Ot V76.12 11/15/2014 Ot 733.90 11/15/2014 Ot V76.12 11/15/2014 Ot V76.12 11/15/2014 Ot V76.12 12/29/2014 TIBURCIO HERRERA DOI Ot V76.12 12/06/2015 TIBURCIO HERRERA DOI Ot V76.12 12/06/2015 Ot V76.12 12/06/2015 Ot V76.12 12/06/2015 SHARON MARTINEZ JEN Ot V76.12 12/27/2015 SHARON MARTINEZ JEN Ot Z12.31 03/11/2017 Ot V76.12 OTH SCREEN MAMMO-MALIGN NEOPLASM OF ALEX 03/11/2017 Ot V76.12 OTH SCREEN MAMMO-MALIGN NEOPLASM OF ALEX 03/11/2017 SHARON MARTINEZ JEN Ot V76.12 OTH SCREEN MAMMO-MALIGN NEOPLASM OF ALEX 03/11/2017 JEN HERRERA DO Ot Z12.31 ENCNTR SCREEN MAMMOGRAM FOR MALIGNANT NE 03/11/2017 SHARON MARTINEZ JEN Ot Z12.31 ENCNTR SCREEN MAMMOGRAM FOR MALIGNANT NE 03/11/2017 JEN HERRERA DO Ot Z12.31 ENCNTR SCREEN MAMMOGRAM FOR MALIGNANT NE 03/11/2017 JEN HERRERA DO Ot Z12.31 ENCNTR SCREEN MAMMOGRAM FOR MALIGNANT NE 03/12/2017 JEN HERRERA DO Ot Z12.31 ENCNTR SCREEN MAMMOGRAM FOR MALIGNANT NE 03/12/2017 JEN HERRERA DO Ot Z12.31 ENCNTR SCREEN MAMMOGRAM FOR MALIGNANT NE 04/09/2017 TIBURCIO HERRERA DOI Ot Z12.31 ENCNTR SCREEN MAMMOGRAM FOR MALIGNANT NE 12/20/2017 HERRERATIBURCIO KAUFMAN DOI Ot 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 12/20/2017 HERRERA DO JEN Ot 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 12/20/2017 HERRERAJEN KAUFMAN DO Ot V76.12 OTH SCREEN MAMMO-MALIGN NEOPLASM OF ALEX 12/20/2017 HERRERATIBURCIO KAUFMAN DOI Ot Z12.31 ENCNTR SCREEN MAMMOGRAM FOR MALIGNANT NE 12/20/2017 HERRERA DO JEN Ot Z12.31 ENCNTR SCREEN MAMMOGRAM FOR MALIGNANT NE 12/20/2017 HERRERA DO JEN Ot 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 12/24/2017 HERRERA DO JEN Ot 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 12/29/2017 SHARON MARTINEZ JEN Ot 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 01/16/2018 SHARON MARTINEZ JEN Ot 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 04/15/2018 LUCA ERVIN MD Ot E78.2 MIXED HYPERLIPIDEMIA 04/15/2018 LUCA ERVIN MD Ot F32.9 MAJOR DEPRESSIVE DISORDER, SINGLE EPISOD 04/15/2018 LUCA ERVIN MD Ot F41.9 ANXIETY DISORDER, UNSPECIFIED 04/15/2018 LUCA ERVIN MD Ot F51.01 PRIMARY INSOMNIA 04/15/2018 LUCA ERVIN MD Ot I10 ESSENTIAL (PRIMARY) HYPERTENSION 04/15/2018 LUCA ERVIN MD Ot I27.20 PULMONARY HYPERTENSION, UNSPECIFIED 04/15/2018 LUCA ERVIN MD Ot R06.02 SHORTNESS OF BREATH 04/15/2018 LUCA ERVIN MD Ot R07.9 CHEST PAIN, UNSPECIFIED 04/15/2018 LUCA ERVIN MD Ot Z66 DO NOT RESUSCITATE 04/15/2018 LUCA ERVIN MD Ot E78.2 MIXED HYPERLIPIDEMIA 04/15/2018 LUCA ERVIN MD Ot F32.9 MAJOR DEPRESSIVE DISORDER, SINGLE EPISOD 04/15/2018 LUCA ERVIN MD Ot F41.9 ANXIETY DISORDER, UNSPECIFIED 04/15/2018 LUCA ERVIN MD Ot F51.01 PRIMARY INSOMNIA 04/15/2018 LUCA ERVIN MD Ot I10 ESSENTIAL (PRIMARY) HYPERTENSION 04/15/2018 LUCA ERVIN MD Ot I27.20 PULMONARY HYPERTENSION, UNSPECIFIED 04/15/2018 LUCA ERVIN MD Ot R06.02 SHORTNESS OF BREATH 04/15/2018 LUCA ERVIN MD Ot R07.9 CHEST PAIN, UNSPECIFIED 04/15/2018 LUCA ERVIN MD Ot Z66 DO NOT RESUSCITATE 04/17/2018 LUCA ERVIN MD Ot E78.2 MIXED HYPERLIPIDEMIA 04/17/2018 LUCA ERVIN MD Ot F32.9 MAJOR DEPRESSIVE DISORDER, SINGLE EPISOD 04/17/2018 LUCA ERVIN MD Ot F41.9 ANXIETY DISORDER, UNSPECIFIED 04/17/2018 LUCA ERVIN MD Ot F51.01 PRIMARY INSOMNIA 04/17/2018 LUCA ERVIN MD Ot I10 ESSENTIAL (PRIMARY) HYPERTENSION 04/17/2018 LUCA ERVIN MD Ot I27.20 PULMONARY HYPERTENSION, UNSPECIFIED 04/17/2018 LUCA ERVIN MD Ot R06.02 SHORTNESS OF BREATH 04/17/2018 LUCA ERVIN MD Ot R07.9 CHEST PAIN, UNSPECIFIED 04/17/2018 LUCA ERVIN MD Ot Z66 DO NOT RESUSCITATE 04/30/2018 HERRERA DO, JEN Ot R91.8 OTHER NONSPECIFIC ABNORMAL FINDING OF EUGENIE 04/30/2018 HERRERA DO, JEN Ot R91.8 OTHER NONSPECIFIC ABNORMAL FINDING OF EUGENIE 05/21/2018 HERRERA DO, JEN Ot R91.8 OTHER NONSPECIFIC ABNORMAL FINDING OF EUGENIE 05/21/2018 HERRERA DO, JEN Ot R05 COUGH 05/21/2018 HERRERA DO, JEN Ot R06.00 DYSPNEA, UNSPECIFIED 05/27/2018 HERRERA DO, JEN Ot R91.8 OTHER NONSPECIFIC ABNORMAL FINDING OF EUGENIE 06/10/2018 HERRERA DO, JEN Ot R05 COUGH 06/10/2018 HERRERA DO, JEN Ot R06.00 DYSPNEA, UNSPECIFIED 06/18/2018 HERRERA DO, JEN Ot R05 COUGH 06/18/2018 HERRERA DO, JEN Ot R06.00 DYSPNEA, UNSPECIFIED 06/20/2018 HERRERA DO, JEN Ot V76.12 OTH SCREEN MAMMO-MALIGN NEOPLASM OF ALEX 06/20/2018 HERRERAJEN KAUFMAN DO Ot Z12.31 ENCNTR SCREEN MAMMOGRAM FOR MALIGNANT NE 06/20/2018 JEN HERRERA DO Ot Z12.31 ENCNTR SCREEN MAMMOGRAM FOR MALIGNANT NE 06/20/2018 JEN HERRERA DO Ot 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 06/20/2018 JEN HERRERA DO Ot R05 COUGH 06/20/2018 JEN HERRERA DO Ot R06.00 DYSPNEA, UNSPECIFIED 06/20/2018 JEN HERRERA DO Ot R91.8 OTHER NONSPECIFIC ABNORMAL FINDING OF EUGENIE 06/20/2018 JEN HERRERA DO Ot Z12.31 ENCNTR SCREEN MAMMOGRAM FOR MALIGNANT NE 06/23/2018 JEN HERRERA DO Ot Z12.31 ENCNTR SCREEN MAMMOGRAM FOR MALIGNANT NE Procedures There is no data. Results Test Result Range Complete blood count (CBC) with automated white blood cell (WBC) differential - 04/14/18 14:45 Blood leukocytes automated count (number/volume) 7.9 10*3/uL 4.3-11.0 Blood erythrocytes automated count (number/volume) 4.58 10*6/uL 4.35-5.85 Venous blood hemoglobin measurement (mass/volume) 14.3 g/dL 11.5-16.0 Blood hematocrit (volume fraction) 41 % 35-52 Automated erythrocyte mean corpuscular volume 90 [foz_us] 80-99 Automated erythrocyte mean corpuscular hemoglobin (mass per erythrocyte) 31 pg 25-34 Automated erythrocyte mean corpuscular hemoglobin concentration measurement ( mass/volume) 35 g/dL 32-36 Automated erythrocyte distribution width ratio 12.9 % 10.0-14.5 Automated blood platelet count (count/volume) 334 10*3/uL 130-400 Automated blood platelet mean volume measurement 8.5 [foz_us] 7.4-10.4 Automated blood neutrophils/100 leukocytes 63 % 42-75 Automated blood lymphocytes/100 leukocytes 26 % 12-44 Blood monocytes/100 leukocytes 10 % 0-12 Automated blood eosinophils/100 leukocytes 1 % 0-10 Automated blood basophils/100 leukocytes 1 % 0-10 Blood neutrophils automated count (number/volume) 5.0 10*3 1.8-7.8 Blood lymphocytes automated count (number/volume) 2.1 10*3 1.0-4.0 Blood monocytes automated count (number/volume) 0.8 10*3 0.0-1.0 Automated eosinophil count 0.0 10*3/uL 0.0-0.3 Automated blood basophil count (count/volume) 0.0 10*3/uL 0.0-0.1 Comprehensive metabolic panel - 04/14/18 14:45 Serum or plasma sodium measurement (moles/volume) 135 mmol/L 135-145 Serum or plasma potassium measurement (moles/volume) 4.4 mmol/L 3.6-5.0 Serum or plasma chloride measurement (moles/volume) 102 mmol/L 98-107 Carbon dioxide 24 mmol/L 21-32 Serum or plasma anion gap determination (moles/volume) 9 mmol/L 5-14 Serum or plasma urea nitrogen measurement (mass/volume) 11 mg/dL 7-18 Serum or plasma creatinine measurement (mass/volume) 0.73 mg/dL 0.60-1.30 Serum or plasma urea nitrogen/creatinine mass ratio 15 NRG Serum or plasma creatinine measurement with calculation of estimated glomerular filtration rate > NRG Serum or plasma glucose measurement (mass/volume) 92 mg/dL 70-105 Serum or plasma calcium measurement (mass/volume) 10.1 mg/dL 8.5-10.1 Serum or plasma total bilirubin measurement (mass/volume) 0.5 mg/dL 0.1-1.0 Serum or plasma alkaline phosphatase measurement (enzymatic activity/volume) 54 U/L 40-136 Serum or plasma aspartate aminotransferase measurement (enzymatic activity/ volume) 18 U/L 5-34 Serum or plasma alanine aminotransferase measurement (enzymatic activity/volume ) 11 U/L 0-55 Serum or plasma protein measurement (mass/volume) 7.4 g/dL 6.4-8.2 Serum or plasma albumin measurement (mass/volume) 4.8 g/dL 3.2-4.5 Magnesium - 04/14/18 14:45 Magnesium 2.1 mg/dL 1.8-2.4 PT panel in platelet poor plasma by coagulation assay - 04/14/18 14:45 Prothrombin time (PT) in platelet poor plasma by coagulation assay 13.4 s 12.2-14.7 INR in platelet poor plasma or blood by coagulation assay 1.0 0.8-1.4 Activated partial thromboplastin time (aPTT) in platelet poor plasma bycoagulation assay - 04/14/18 14:45 Activated partial thromboplastin time (aPTT) in platelet poor plasma bycoagulation assay 24 s 24-35 Serum or plasma troponin i.cardiac measurement (mass/volume) - 04/14/18 14:45 Serum or plasma troponin i.cardiac measurement (mass/volume) < ng/ mL <0.30 Serum or plasma lithium measurement (moles/volume) - 04/14/18 14:45 BNP level 84.8 pg/mL <100.0 Myoglobin, serum - 04/14/18 14:45 Myoglobin, serum 22.0 ng/mL 10.0-92.0 Lipid 1996 panel - 04/15/18 02:55 Serum or plasma triglyceride measurement (mass/volume) 74 mg/dL <150 Serum or plasma cholesterol measurement (mass/volume) 161 mg/dL < 200 Serum or plasma cholesterol in HDL measurement (mass/volume) 58 mg/ dL 40-60 Cholesterol in LDL [mass/volume] in serum or plasma by direct assay 89 mg/dL 1-129 Serum or plasma cholesterol in VLDL measurement (mass/volume) 15 mg/ dL 5-40 Encounters ACCT No. Visit Date/Time Discharge Status Pt. Type Provider Facility Loc./Unit Complaint [id number] 07/18/2018 07:30:00 07/18/2018 23:59:59 CLS Preadmit JAYNA OLVERA, ANNI Hough [facility] CARD RT BREAST CA [id number] 06/24/2018 09:07:00 06/24/2018 23:59:59 CLS Preadmit TIBURCIO HERRERA DOI [facility] RAD ABN AND INCONCLUSIVE FINDINGS ON DX IMAGING [id number] 06/20/2018 10:03:00 06/20/2018 23:59:59 CLS Outpatient TIBURCIO HERRERA DOI [facility] RAD SCREENING [id number] 04/29/2018 07:28:00 04/29/2018 23:59:59 CLS Outpatient SHARON MARTINEZ JEN [facility] RAD DYSPENEA, COUGH [id number] 04/24/2018 13:25:00 04/24/2018 23:59:59 CLS Outpatient HERRERA DO, JEN [facility] RT R06.00 DYSPNEA [id number] 04/14/2018 14:30:00 04/15/2018 13:21:00 DIS Inpatient AZIZA OLVERA, LUCA Tobar [facility] ICU CHEST PAIN [id number] 12/23/2017 14:56:00 12/23/2017 23:59:59 CLS Outpatient HERRERA DO, JEN [facility] RAD I65.23 BILAT CAROTID ARTERY STENOSIS [id number] 03/11/2017 11:32:00 03/11/2017 23:59:59 CLS Outpatient HERRERA DO, JEN [facility] RAD ENCOUNTER FOR SCREENING MAMMO FOR MALIGNANT NEOPLA [id number] 12/06/2015 12:48:00 12/06/2015 23:59:59 CLS Outpatient HERRERA DO, JEN [facility] RAD SCREENING [id number] 11/30/2014 10:14:00 11/30/2014 23:59:59 CLS Outpatient HERRERA DO, JEN [facility] RAD SCREENING [id number] 02/27/2013 14:24:00 Document Registration [id number] 10/10/2011 13:18:00 Document Registration [id number] 06/01/2010 09:45:00 Document Registration [id number] 05/31/2009 09:12:00 Document Registration
[2018-07-30] MEDS ORDERED: LACTATED RINGERS 1,000 ML IV PRN (08:29)
[2018-07-30] MEDS ORDERED: VANCOMYCIN INJECTION 1,000 MG in NS (IVPB) 250 ML IV ONE (08:30)
[2018-07-30 08:45] VITALS: BP 124/76
[2018-07-30] MEDS ORDERED: LACTATED RINGERS 0 ML IV ONE (08:59)
[2018-07-30] MEDS ORDERED: fentaNYL INJECTION 100 MCG/2 ML AMP ONE (08:59)
[2018-07-30] MEDS ORDERED: ONDANSETRON 4 MG/2 ML (SDV) Z0FRAN ONE (08:59)
[2018-07-30] MEDS ORDERED: MIDAZOLAM 2 MG/2 ML (VERSED) VIAL ONE (08:59)
[2018-07-30] MEDS ORDERED: proPOfol 200 MG/20 ML (DIPRIVAN) VIAL IV ONE (08:59)
[2018-07-30] MEDS ORDERED: LIDOCAINE PF 2% 5 ML (XYLOCAINE) VIAL ONE (08:59)
[2018-07-30] MEDS ORDERED: BUP/EPI 0.5% 1:200,000 (SENSORCAINE) 30 ML VIAL ONE (09:19)
[2018-07-30] MEDS ORDERED: SEVOFLURANE (ULTANE) 15 ML INHAL SOLN ONE (09:40)
[2018-07-30] MEDS ORDERED: DEXAMETHASONE 10 MG/ML (DECADRON) 1 ML VIAL ONE (09:40)
--- NOTE | 2018-07-30 09:48 | Progress Note-Pre Operative ---
Pre-Operative Progress Note H&P Reviewed The H&P was reviewed, patient examined and no changes noted. Date Seen by Provider: Jul 24, 2018 Time Seen by Provider: 13:00 Date H&P Reviewed: Jul 30, 2018 Time H&P Reviewed: 09:48 Pre-Operative Diagnosis: Right breast carcinoma with positive margins ANNI DORANTES MD Jul 30, 2018 09:48
[2018-07-30] MEDS ORDERED: PHENYLEPHRINE 100 MCG/ML 10 ML (ANESTHESIA) SYR ONE (10:39)
--- NOTE | 2018-07-30 10:51 | Operative Report ---
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 Histologic analysis confirmed a10 mm tumor with DCIS along the medial and inferior margins and therefore, it was felt reasonable to perform additional excision to achieve negative margins. Informed consent was obtained after reviewing the details of the procedure and complications of postoperative hematoma along with wound infection. Description of the procedure: She was placed supine on the operating table and general anesthesia induced. Vancomycin was administered intravenously as prophylaxis against wound infection; sequential compression devices were placed around her legs, to minimize the risk of venous thrombosis. Right breast was prepared and draped in the usual sterile manner. Preemptive analgesia was established using 0.5 percent Marcaine with epinephrine. The previous incision was opened, being extended slightly medially to achieve adequate exposure of the lumpectomy cavity. Additional tissue from the medial margin was excised separately using Harmonic scalpel and oriented with sutures. Subsequently, additional tissue from the inferior margin was excised. Both pieces of tissue were sent separately.. The cavity was irrigated with saline and the incision closed 3-0 Vicryl for the dermal layer and 4-0 Vicryl for skin , in a subcuticular fashion. She tolerated the procedure well, was extubated in the operating room and taken to the recovery room in a stable condition Findings of the Procedure see op report Allergies and Home Medications Allergies Coded Allergies: Penicillins (Verified Allergy, Unknown, 04/14/18) Home Medications Albuterol Sulfate 1 Puff Puff, 2 PUFF IH Q4H PRN for WHEEZING, (Reported) 1 PUFF = 90 MCG Alprazolam 0.5 Mg Tablet, 0.5 MG PO HS PRN for ANXIETY, (Reported) Amlodipine Besylate 5 Mg Tablet, 5 MG PO DAILY, (Reported) Cholecalciferol (Vitamin D3) 2,000 Unit Capsule, 2,000 UNIT PO DAILY, (Reported) Lovastatin 40 Mg Tablet, 40 MG PO HS, (Reported) Multivitamin 1 Each Tablet, 1 TAB PO DAILY, (Reported) [place] 3 Polyunsat Fatty Acids 1,000 Mg Cap, 1,000 MG PO HS, (Reported) Vit C/Vit E/Lutein/Min/[place]-3 1 Each Capsule, 1 CAP PO DAILY, (Reported) Patient Home Medication List Home Medication List Reviewed: Yes ANNI DORANTES MD Jul 30, 2018 10:51
[2018-07-30] MEDS ORDERED: ACHD5005 PO (10:52)
--- NOTE | 2018-07-30 10:52 | Discharge Inst-Simple/Standard ---
Discharge Inst-Standard Discharge Medications New, Converted or Re-Newed RX: RX on Chart Patient Instructions/Follow Up Plan of Care/Instructions/FU: dressings off in 48 hours. Follow-up in 2 weeks.May resume aspirin in 48 hours Activity as Tolerated: Yes Discharge Diet: No Restrictions ANNI DORANTES MD Jul 30, 2018 10:52
[2018-07-30] MEDS ORDERED: ONDANSETRON 4 MG/2 ML (SDV) Z0FRAN IVP PRN (11:00)
[2018-07-30] MEDS ORDERED: morphine INJ 10 MG/ML 1ML (SYR OR VIAL) IVP ONE (11:00)
[2018-07-30 11:55] VITALS: BP 134/81
[2018-07-30 12:25] VITALS: BP 130/68
[2018-07-30 12:55] VITALS: BP 141/79
[2018-07-30 13:05] VITALS: BP 141/79
== END 2018-07-30 13:05 | disposition home or self-care (01) ==
LOC: SDC 08:22
PROVIDERS: ATTEND Surgery
DX: C50.911 Malignant neoplasm of unspecified site of right female breast (principal); N64.1 Fat necrosis of breast; N60.31 Fibrosclerosis of right breast; J45.909 Unspecified asthma, uncomplicated; I10 Essential (primary) hypertension; Z79.899 Other long term (current) drug therapy
CPT/HCPCS: 87081; 88305

== ENCOUNTER 2018-08-08 10:52 | Outpatient (RCR) | payer MEDICARE | END 2018-09-17 09:33 | disposition home or self-care (01) | LOC: ONC 10:52 | PROVIDERS: ATTEND Internal Medicine Hematology & Oncology | DX: C50.911 Malignant neoplasm of unspecified site of right female breast (principal); Z17.0 Estrogen receptor positive status [ER+]; Z85.820 Personal history of malignant melanoma of skin; I10 Essential (primary) hypertension; E78.2 Mixed hyperlipidemia; J44.9 Chronic obstructive pulmonary disease, unspecified; I65.29 Occlusion and stenosis of unspecified carotid artery; Z79.899 Other long term (current) drug therapy; Z79.82 Long term (current) use of aspirin | CPT/HCPCS: 99213; 99214 ==

== ENCOUNTER 2018-11-07 10:25 | Outpatient (RCR) | payer MEDICARE ==
[2018-09-17 13:37] LABS: BASOPHILS # (AUTO) 0.1 10^3/uL (0.0-0.1); BASOPHILS % (AUTO) 1 % (0-10); EOSINOPHILS # (AUTO) 0.1 10^3/uL (0.0-0.3); EOSINOPHILS % (AUTO) 1 % (0-10); HEMATOCRIT 39 % (35-52); HEMOGLOBIN 13.3 G/DL (11.5-16.0); LYMPHOCYTES # (AUTO) 2.3 X 10^3 (1.0-4.0); LYMPHOCYTES % (AUTO) 33 % (12-44); MEAN CORPUSCULAR HEMOGLOBIN 31 PG (25-34); MEAN CORPUSCULAR HGB CONC 35 G/DL (32-36); MEAN CORPUSCULAR VOLUME 90 FL (80-99); MEAN PLATELET VOLUME 8.4 FL (7.4-10.4); MONOCYTES # (AUTO) 0.5 X 10^3 (0.0-1.0); MONOCYTES % (AUTO) 8 % (0-12); NEUTROPHILS % (AUTO) 57 % (42-75); PLATELET COUNT 376 10^3/uL (130-400); RED BLOOD COUNT 4.29 10^6/uL (4.35-5.85); RED CELL DISTRIBUTION WIDTH 13.5 % (10.0-14.5)
[2018-09-17 14:01] LABS: ALANINE AMINOTRANSFERASE 18 U/L (0-55); ALBUMIN 4.5 GM/DL (3.2-4.5); ALKALINE PHOSPHATASE 61 U/L (40-136); BILIRUBIN,TOTAL 0.6 MG/DL (0.1-1.0); BUN/CREATININE RATIO 16; CALCIUM 9.6 MG/DL (8.5-10.1); CARBON DIOXIDE 23 MMOL/L (21-32); CHLORIDE 101 MMOL/L (98-107); CREATININE SERUM 0.74 MG/DL (0.60-1.30); GFR ESTIMATED > 60; GLUCOSE 151 MG/DL (70-105); POTASSIUM 3.5 MMOL/L (3.6-5.0); SODIUM 135 MMOL/L (135-145); TOTAL PROTEIN 6.9 GM/DL (6.4-8.2)
[2018-10-15 13:04] LABS: BASOPHILS # (AUTO) 0.1 10^3/uL (0.0-0.1); BASOPHILS % (AUTO) 1 % (0-10); EOSINOPHILS # (AUTO) 0.1 10^3/uL (0.0-0.3); EOSINOPHILS % (AUTO) 1 % (0-10); HEMATOCRIT 38 % (35-52); HEMOGLOBIN 12.7 G/DL (11.5-16.0); LYMPHOCYTES # (AUTO) 2.4 X 10^3 (1.0-4.0); LYMPHOCYTES % (AUTO) 27 % (12-44); MEAN CORPUSCULAR HEMOGLOBIN 30 PG (25-34); MEAN CORPUSCULAR HGB CONC 34 G/DL (32-36); MEAN CORPUSCULAR VOLUME 90 FL (80-99); MEAN PLATELET VOLUME 8.1 FL (7.4-10.4); MONOCYTES # (AUTO) 0.6 X 10^3 (0.0-1.0); MONOCYTES % (AUTO) 7 % (0-12); NEUTROPHILS # (AUTO) 5.7 X 10^3 (1.8-7.8); NEUTROPHILS % (AUTO) 64 % (42-75); PLATELET COUNT 345 10^3/uL (130-400); RED CELL DISTRIBUTION WIDTH 13.3 % (10.0-14.5); WHITE BLOOD COUNT 8.8 10^3/uL (4.3-11.0)
[2018-10-15 13:21] LABS: ALANINE AMINOTRANSFERASE 13 U/L (0-55); ALBUMIN 4.3 GM/DL (3.2-4.5); ALKALINE PHOSPHATASE 48 U/L (40-136); BILIRUBIN,TOTAL 0.6 MG/DL (0.1-1.0); BUN/CREATININE RATIO 14; CALCIUM 9.4 MG/DL (8.5-10.1); CARBON DIOXIDE 26 MMOL/L (21-32); CHLORIDE 100 MMOL/L (98-107); CREATININE SERUM 0.72 MG/DL (0.60-1.30); GFR ESTIMATED > 60; GLUCOSE 105 MG/DL (70-105); SODIUM 133 MMOL/L (135-145); TOTAL PROTEIN 6.6 GM/DL (6.4-8.2)
[~2018-11-07 10:25] MED LIST changes: -AMLO2.5T3 PO; +AMLO2.5T4 PO; -AMLO5TAB7 PO; +AMLO5TAB9 PO
[2018-11-07 10:52] LABS: BASOPHILS # (AUTO) 0.1 10^3/uL (0.0-0.1); BASOPHILS % (AUTO) 2 % (0-10); EOSINOPHILS # (AUTO) 0.2 10^3/uL (0.0-0.3); EOSINOPHILS % (AUTO) 3 % (0-10); HEMATOCRIT 42 % (35-52); HEMOGLOBIN 14.2 G/DL (11.5-16.0); LYMPHOCYTES # (AUTO) 2.1 X 10^3 (1.0-4.0); LYMPHOCYTES % (AUTO) 32 % (12-44); MEAN CORPUSCULAR HEMOGLOBIN 31 PG (25-34); MEAN CORPUSCULAR HGB CONC 34 G/DL (32-36); MEAN CORPUSCULAR VOLUME 90 FL (80-99); MEAN PLATELET VOLUME 8.1 FL (7.4-10.4); MONOCYTES # (AUTO) 0.6 X 10^3 (0.0-1.0); MONOCYTES % (AUTO) 9 % (0-12); NEUTROPHILS # (AUTO) 3.7 X 10^3 (1.8-7.8); NEUTROPHILS % (AUTO) 55 % (42-75); PLATELET COUNT 345 10^3/uL (130-400); RED BLOOD COUNT 4.63 10^6/uL (4.35-5.85); WHITE BLOOD COUNT 6.7 10^3/uL (4.3-11.0)
[2018-11-07 11:10] LABS: ALANINE AMINOTRANSFERASE 16 U/L (0-55); ALKALINE PHOSPHATASE 65 U/L (40-136); BILIRUBIN,TOTAL 0.8 MG/DL (0.1-1.0); BUN/CREATININE RATIO 13; CALCIUM 9.9 MG/DL (8.5-10.1); CARBON DIOXIDE 24 MMOL/L (21-32); CHLORIDE 99 MMOL/L (98-107); CREATININE SERUM 0.78 MG/DL (0.60-1.30); GFR ESTIMATED > 60; GLUCOSE 98 MG/DL (70-105); POTASSIUM 3.9 MMOL/L (3.6-5.0); SODIUM 133 MMOL/L (135-145)
== END 2018-12-16 | disposition home or self-care (01) ==
LOC: ONC 10:25
PROVIDERS: ATTEND Internal Medicine Hematology & Oncology
DX: C50.911 Malignant neoplasm of unspecified site of right female breast (principal); N64.1 Fat necrosis of breast; N60.31 Fibrosclerosis of right breast; J45.909 Unspecified asthma, uncomplicated; J44.9 Chronic obstructive pulmonary disease, unspecified; I10 Essential (primary) hypertension; I65.29 Occlusion and stenosis of unspecified carotid artery; E78.2 Mixed hyperlipidemia; Z79.899 Other long term (current) drug therapy; Z17.0 Estrogen receptor positive status [ER+]; Z79.82 Long term (current) use of aspirin; Z85.820 Personal history of malignant melanoma of skin
CPT/HCPCS: 36415; 80053; 85025; 99213

== ENCOUNTER 2019-04-09 10:24 | Outpatient (RCR) | payer MEDICARE ==
[2019-02-12 11:14] LABS: BASOPHILS # (AUTO) 0.1 10^3/uL (0.0-0.1); BASOPHILS % (AUTO) 1 % (0-10); EOSINOPHILS # (AUTO) 0.1 10^3/uL (0.0-0.3); EOSINOPHILS % (AUTO) 1 % (0-10); HEMATOCRIT 39 % (35-52); HEMOGLOBIN 13.2 G/DL (11.5-16.0); LYMPHOCYTES # (AUTO) 2.1 X 10^3 (1.0-4.0); LYMPHOCYTES % (AUTO) 34 % (12-44); MEAN CORPUSCULAR HEMOGLOBIN 31 PG (25-34); MEAN CORPUSCULAR HGB CONC 34 G/DL (32-36); MEAN CORPUSCULAR VOLUME 91 FL (80-99); MEAN PLATELET VOLUME 8.3 FL (7.4-10.4); MONOCYTES # (AUTO) 0.5 X 10^3 (0.0-1.0); MONOCYTES % (AUTO) 9 % (0-12); NEUTROPHILS # (AUTO) 3.4 X 10^3 (1.8-7.8); NEUTROPHILS % (AUTO) 56 % (42-75); PLATELET COUNT 308 10^3/uL (130-400); RED CELL DISTRIBUTION WIDTH 13.7 % (10.0-14.5); WHITE BLOOD COUNT 6.1 10^3/uL (4.3-11.0)
[2019-02-12 11:29] LABS: ALANINE AMINOTRANSFERASE 15 U/L (0-55); ALBUMIN 4.7 GM/DL (3.2-4.5); ALKALINE PHOSPHATASE 64 U/L (40-136); BILIRUBIN,TOTAL 0.8 MG/DL (0.1-1.0); BUN/CREATININE RATIO 15; CALCIUM 9.5 MG/DL (8.5-10.1); CARBON DIOXIDE 23 MMOL/L (21-32); CHLORIDE 100 MMOL/L (98-107); CREATININE SERUM 0.75 MG/DL (0.60-1.30); GFR ESTIMATED > 60; GLUCOSE 101 MG/DL (70-105); POTASSIUM 4.2 MMOL/L (3.6-5.0); SODIUM 132 MMOL/L (135-145)
[~2019-04-09 10:24] MED LIST changes: +OCUVITE SOFTGE1 EACH PO; -VIT1CAPS9 PO
[2019-04-09 10:36] LABS: BASOPHILS # (AUTO) 0.1 10^3/uL (0.0-0.1); BASOPHILS % (AUTO) 1 % (0-10); EOSINOPHILS # (AUTO) 0.1 10^3/uL (0.0-0.3); EOSINOPHILS % (AUTO) 1 % (0-10); HEMATOCRIT 39 % (35-52); HEMOGLOBIN 13.6 G/DL (11.5-16.0); LYMPHOCYTES # (AUTO) 1.8 X 10^3 (1.0-4.0); LYMPHOCYTES % (AUTO) 32 % (12-44); MEAN CORPUSCULAR HEMOGLOBIN 31 PG (25-34); MEAN CORPUSCULAR HGB CONC 35 G/DL (32-36); MEAN CORPUSCULAR VOLUME 90 FL (80-99); MEAN PLATELET VOLUME 8.5 FL (7.4-10.4); MONOCYTES # (AUTO) 0.6 X 10^3 (0.0-1.0); MONOCYTES % (AUTO) 11 % (0-12); NEUTROPHILS # (AUTO) 3.1 X 10^3 (1.8-7.8); NEUTROPHILS % (AUTO) 55 % (42-75); PLATELET COUNT 325 10^3/uL (130-400); RED CELL DISTRIBUTION WIDTH 13.2 % (10.0-14.5); WHITE BLOOD COUNT 5.7 10^3/uL (4.3-11.0)
[2019-04-09 10:57] LABS: ALANINE AMINOTRANSFERASE 16 U/L (0-55); ALBUMIN 4.4 GM/DL (3.2-4.5); ALKALINE PHOSPHATASE 66 U/L (40-136); BILIRUBIN,TOTAL 0.7 MG/DL (0.1-1.0); BUN/CREATININE RATIO 13; CALCIUM 9.5 MG/DL (8.5-10.1); CARBON DIOXIDE 20 MMOL/L (21-32); CHLORIDE 103 MMOL/L (98-107); CREATININE SERUM 0.67 MG/DL (0.60-1.30); GFR ESTIMATED > 60; GLUCOSE 98 MG/DL (70-105); POTASSIUM 4.2 MMOL/L (3.6-5.0); SODIUM 132 MMOL/L (135-145); TOTAL PROTEIN 6.9 GM/DL (6.4-8.2)
== END 2019-05-13 | disposition home or self-care (01) ==
LOC: ONC 10:24
PROVIDERS: ATTEND Internal Medicine Hematology & Oncology
DX: C50.911 Malignant neoplasm of unspecified site of right female breast (principal); N64.1 Fat necrosis of breast; N60.31 Fibrosclerosis of right breast; J45.909 Unspecified asthma, uncomplicated; J44.9 Chronic obstructive pulmonary disease, unspecified; I10 Essential (primary) hypertension; I65.29 Occlusion and stenosis of unspecified carotid artery; E78.2 Mixed hyperlipidemia; Z17.0 Estrogen receptor positive status [ER+]; Z79.811 Long term (current) use of aromatase inhibitors; Z79.899 Other long term (current) drug therapy; Z79.82 Long term (current) use of aspirin; Z85.820 Personal history of malignant melanoma of skin
CPT/HCPCS: 36415; 80053; 85025; 99213

== ENCOUNTER → 2019-06-22 | Outpatient (CLI) | payer MEDICARE ==
--- NOTE | 2019-06-22 12:31 | Diagnostic Imaging Report ---
Indication: Routine screening. Comparison is made to prior mammogram 06/20/2018 and 03/11/2017. 2-D and 3-D bilateral screening mammography was performed with CAD. Scattered fibroglandular densities are identified bilaterally. Postsurgical changes in the upper outer right breast with multiple surgical clips are noted on today's study. A benign-appearing nodule in the far lateral right breast has been stable for several years. No new mass or malignant-appearing microcalcifications are seen. Axillae are unremarkable. Impression: BI-RADS category 2 No mammographic features suspicious for malignancy are identified. ACR BI-RADS Category 2: Benign findings. Result letter will be mailed to the patient. Note: At least 10% of breast cancer is not imaged by mammography. Dictated by: Dictated on workstation # [id number]
== END ==
LOC: RAD 09:45
PROVIDERS: ATTEND Internal Medicine Hematology & Oncology
DX: Z12.31 Encounter for screening mammogram for malignant neoplasm of breast (principal); C50.411 Malignant neoplasm of upper-outer quadrant of right female breast
CPT/HCPCS: 77067

== ENCOUNTER 2019-07-03 10:59 | Outpatient (RCR) | payer MEDICARE ==
[2019-07-03 11:19] LABS: BASOPHILS # (AUTO) 0.1 10^3/uL (0.0-0.1); BASOPHILS % (AUTO) 1 % (0-10); EOSINOPHILS # (AUTO) 0.1 10^3/uL (0.0-0.3); EOSINOPHILS % (AUTO) 1 % (0-10); HEMATOCRIT 40 % (35-52); HEMOGLOBIN 13.7 G/DL (11.5-16.0); LYMPHOCYTES # (AUTO) 1.8 X 10^3 (1.0-4.0); LYMPHOCYTES % (AUTO) 25 % (12-44); MEAN CORPUSCULAR HEMOGLOBIN 31 PG (25-34); MEAN CORPUSCULAR HGB CONC 34 G/DL (32-36); MEAN CORPUSCULAR VOLUME 89 FL (80-99); MEAN PLATELET VOLUME 8.4 FL (7.4-10.4); MONOCYTES # (AUTO) 0.7 X 10^3 (0.0-1.0); MONOCYTES % (AUTO) 10 % (0-12); NEUTROPHILS # (AUTO) 4.4 X 10^3 (1.8-7.8); NEUTROPHILS % (AUTO) 63 % (42-75); PLATELET COUNT 352 10^3/uL (130-400); RED CELL DISTRIBUTION WIDTH 13.5 % (10.0-14.5); WHITE BLOOD COUNT 7.1 10^3/uL (4.3-11.0)
[2019-07-03 11:37] LABS: ALANINE AMINOTRANSFERASE 15 U/L (0-55); ALBUMIN 4.7 GM/DL (3.2-4.5); ALKALINE PHOSPHATASE 75 U/L (40-136); BILIRUBIN,TOTAL 0.7 MG/DL (0.1-1.0); BUN/CREATININE RATIO 14; CALCIUM 9.9 MG/DL (8.5-10.1); CARBON DIOXIDE 23 MMOL/L (21-32); CHLORIDE 99 MMOL/L (98-107); CREATININE SERUM 0.71 MG/DL (0.60-1.30); GFR ESTIMATED > 60; GLUCOSE 103 MG/DL (70-105); POTASSIUM 4.3 MMOL/L (3.6-5.0); SODIUM 131 MMOL/L (135-145); TOTAL PROTEIN 7.1 GM/DL (6.4-8.2)
== END 2019-10-01 | disposition home or self-care (01) ==
LOC: ONC 10:59
PROVIDERS: ATTEND Internal Medicine Hematology & Oncology
DX: C50.911 Malignant neoplasm of unspecified site of right female breast (principal); N64.1 Fat necrosis of breast; N60.31 Fibrosclerosis of right breast; J45.909 Unspecified asthma, uncomplicated; J44.9 Chronic obstructive pulmonary disease, unspecified; I10 Essential (primary) hypertension; I65.29 Occlusion and stenosis of unspecified carotid artery; E78.2 Mixed hyperlipidemia; Z17.0 Estrogen receptor positive status [ER+]; Z79.811 Long term (current) use of aromatase inhibitors; Z79.899 Other long term (current) drug therapy; Z79.82 Long term (current) use of aspirin; Z85.820 Personal history of malignant melanoma of skin
CPT/HCPCS: 36415; 80053; 85025; 99213

== ENCOUNTER 2019-10-02 10:28 | Outpatient (RCR) | payer MEDICARE | END 2019-12-31 | disposition home or self-care (01) | LOC: ONC 10:28 | PROVIDERS: ATTEND Internal Medicine Hematology & Oncology | DX: N64.1 Fat necrosis of breast (principal); N60.31 Fibrosclerosis of right breast; J44.9 Chronic obstructive pulmonary disease, unspecified; I10 Essential (primary) hypertension; I65.29 Occlusion and stenosis of unspecified carotid artery; E78.2 Mixed hyperlipidemia; Z17.0 Estrogen receptor positive status [ER+]; Z79.811 Long term (current) use of aromatase inhibitors; Z79.899 Other long term (current) drug therapy; Z79.82 Long term (current) use of aspirin; Z85.820 Personal history of malignant melanoma of skin; Z90.12 Acquired absence of left breast and nipple; Z85.3 Personal history of malignant neoplasm of breast | CPT/HCPCS: 99213 ==

== ENCOUNTER 2020-01-28 09:58 | Outpatient (RCR) | payer MEDICARE | END 2020-04-27 | disposition home or self-care (01) | LOC: ONC 09:58 | PROVIDERS: ATTEND Internal Medicine Hematology & Oncology | DX: N64.1 Fat necrosis of breast (principal); N60.31 Fibrosclerosis of right breast; J44.9 Chronic obstructive pulmonary disease, unspecified; I10 Essential (primary) hypertension; I65.29 Occlusion and stenosis of unspecified carotid artery; E78.2 Mixed hyperlipidemia; Z17.0 Estrogen receptor positive status [ER+]; Z79.811 Long term (current) use of aromatase inhibitors; Z79.899 Other long term (current) drug therapy; Z79.82 Long term (current) use of aspirin; Z85.820 Personal history of malignant melanoma of skin; Z90.12 Acquired absence of left breast and nipple; Z85.3 Personal history of malignant neoplasm of breast | CPT/HCPCS: 99213 ==

== ENCOUNTER → 2020-06-02 | Outpatient (CLI) | payer MEDICARE ==
[2020-06-02 11:11] LABS: BASOPHILS # (AUTO) 0.1 10^3/uL (0.0-0.1); BASOPHILS % (AUTO) 1 % (0-10); EOSINOPHILS # (AUTO) 0.1 10^3/uL (0.0-0.3); EOSINOPHILS % (AUTO) 2 % (0-10); HEMATOCRIT 40 % (35-52); HEMOGLOBIN 13.8 G/DL (11.5-16.0); LYMPHOCYTES # (AUTO) 2.3 X 10^3 (1.0-4.0); LYMPHOCYTES % (AUTO) 32 % (12-44); MEAN CORPUSCULAR HEMOGLOBIN 31 PG (25-34); MEAN CORPUSCULAR HGB CONC 35 G/DL (32-36); MEAN CORPUSCULAR VOLUME 91 FL (80-99); MEAN PLATELET VOLUME 8.5 FL (7.4-10.4); MONOCYTES # (AUTO) 0.8 X 10^3 (0.0-1.0); MONOCYTES % (AUTO) 11 % (0-12); NEUTROPHILS % (AUTO) 55 % (42-75); PLATELET COUNT 271 10^3/uL (130-400); RED CELL DISTRIBUTION WIDTH 13.6 % (10.0-14.5); WHITE BLOOD COUNT 7.3 10^3/uL (4.3-11.0)
[2020-06-02 11:28] LABS: ALANINE AMINOTRANSFERASE 14 U/L (0-55); ALBUMIN 4.4 GM/DL (3.2-4.5); ALKALINE PHOSPHATASE 64 U/L (40-136); BILIRUBIN,TOTAL 0.6 MG/DL (0.1-1.0); BUN/CREATININE RATIO 14; CALCIUM 9.4 MG/DL (8.5-10.1); CARBON DIOXIDE 24 MMOL/L (21-32); CHLORIDE 101 MMOL/L (98-107); CREATININE SERUM 0.72 MG/DL (0.60-1.30); GFR ESTIMATED > 60; GLUCOSE 96 MG/DL (70-105); POTASSIUM 4.4 MMOL/L (3.6-5.0); SODIUM 134 MMOL/L (135-145)
== END ==
LOC: EDSTATUS 04-28 16:15 → ONC 11:03
PROVIDERS: ATTEND Internal Medicine Hematology & Oncology
DX: C50.511 Malignant neoplasm of lower-outer quadrant of right female breast (principal); I10 Essential (primary) hypertension; E78.2 Mixed hyperlipidemia; E78.00 Pure hypercholesterolemia, unspecified; Z90.12 Acquired absence of left breast and nipple
CPT/HCPCS: 80053; 85025; G0463; 99213

== ENCOUNTER → 2020-06-23 | Outpatient (CLI) | payer MEDICARE ==
--- NOTE | 2020-06-23 19:22 | Diagnostic Imaging Report ---
INDICATION: Screening. By history the patient has a diagnosis of carcinoma of the right breast. At this time there are no current complaints. EXAMINATION: Bilateral digital screening mammogram with CAD. 3D tomographic images were obtained and reviewed. The current study was also evaluated with a Computer Aided Detection (CAD) system. COMPARISON: This study was compared to the prior exams of 06/22/2019, 06/20/2018, 03/11/2017 and 12/06/2015. FINDINGS: As noted on the previous exam, there are numerous surgical clips in the upper outer quadrant of the right breast and overlying the right axilla. There is no evidence for recurrent malignancy in the operative site. The fibroglandular tissue in both breasts is heterogeneously dense. This does limit the sensitivity of this exam. When compared to the prior study, there does not appear to have been any significant change. There is no primary or secondary sign of malignancy noted. IMPRESSION: 1. The postsurgical changes involving the right breast appear stable. There is no sign of recurrent malignancy. 2. The overall appearance of the breasts has not changed significantly since the prior exam. There is no primary or secondary sign of malignancy noted. ACR BI-RADS Category 1: Negative. Result letter will be mailed to the patient. Note: At least 10% of breast cancer is not imaged by mammography. Dictated by: Dictated on workstation # [id number]
== END ==
LOC: RAD 10:45
PROVIDERS: ATTEND Internal Medicine
DX: Z12.31 Encounter for screening mammogram for malignant neoplasm of breast (principal); Z85.3 Personal history of malignant neoplasm of breast
CPT/HCPCS: 77063; 77067

== ENCOUNTER → 2021-02-22 | Outpatient (CLI) | payer MEDICARE ==
[~2021-02-22] MED LIST changes: +AMLO-250 PO; -AMLO5TAB9 PO
[2021-02-22 13:10] LABS: BASOPHILS # (AUTO) 0.1 10^3/uL (0.0-0.1); BASOPHILS % (AUTO) 1 % (0-10); EOSINOPHILS # (AUTO) 0.1 10^3/uL (0.0-0.3); EOSINOPHILS % (AUTO) 1 % (0-10); HEMATOCRIT 39 % (35-52); HEMOGLOBIN 13.1 g/dL (11.5-16.0); LYMPHOCYTES # (AUTO) 2.2 10^3/uL (1.0-4.0); LYMPHOCYTES % (AUTO) 26 % (12-44); MEAN CORPUSCULAR HEMOGLOBIN 30 pg (25-34); MEAN CORPUSCULAR HGB CONC 33 g/dL (32-36); MEAN CORPUSCULAR VOLUME 91 fL (80-99); MONOCYTES # (AUTO) 0.5 10^3/uL (0.0-1.0); MONOCYTES % (AUTO) 5 % (0-12); NEUTROPHILS # (AUTO) 5.7 10^3/uL (1.8-7.8); NEUTROPHILS % (AUTO) 67 % (42-75); PLATELET COUNT 280 10^3/uL (130-400); WHITE BLOOD COUNT 8.5 10^3/uL (4.3-11.0)
[2021-02-22 13:26] LABS: ALANINE AMINOTRANSFERASE 16 U/L (0-55); ALBUMIN 4.3 GM/DL (3.2-4.5); ALKALINE PHOSPHATASE 64 U/L (40-136); BILIRUBIN,TOTAL 0.6 MG/DL (0.1-1.0); BUN/CREATININE RATIO 12; CARBON DIOXIDE 24 MMOL/L (21-32); CHLORIDE 101 MMOL/L (98-107); CREATININE SERUM 0.74 MG/DL (0.60-1.30); GFR ESTIMATED > 60; GLUCOSE 162 MG/DL (70-105); POTASSIUM 3.7 MMOL/L (3.6-5.0); SODIUM 133 MMOL/L (135-145)
== END ==
LOC: ONC 12:58
PROVIDERS: ATTEND Internal Medicine Hematology & Oncology
DX: C50.011 Malignant neoplasm of nipple and areola, right female breast (principal); J44.9 Chronic obstructive pulmonary disease, unspecified; E78.00 Pure hypercholesterolemia, unspecified; I10 Essential (primary) hypertension; E78.2 Mixed hyperlipidemia; Z90.11 Acquired absence of right breast and nipple; Z98.890 Other specified postprocedural states
CPT/HCPCS: 80053; 85025; G0463; 99213

== ENCOUNTER → 2021-06-26 | Outpatient (CLI) | payer MEDICARE ==
--- NOTE | 2021-06-27 13:45 | Diagnostic Imaging Report ---
INDICATION: Routine screening. COMPARISON: 06/23/2020 and 06/02/2019. TECHNIQUE: 2D and 3D bilateral screening mammography was performed with CAD. FINDINGS: Both breasts are heterogeneously dense, limiting the sensitivity of mammography. Post-lumpectomy changes in the upper and outer right breast are again noted. No recurrent mass is identified. The benign nodule in the upper outer right breast is stable, most consistent with an intraparenchymal lymph node. No malignant-appearing microcalcifications are seen. The axillae are unremarkable apart from surgical clips in the right axilla. IMPRESSION: No mammographic features suspicious for malignancy are identified. ACR BI-RADS Category 2: Benign findings. Result letter will be mailed to the patient. Note: At least 10% of breast cancer is not imaged by mammography. Dictated by: Dictated on workstation # [id number]
== END ==
LOC: RAD 15:00
PROVIDERS: ATTEND Internal Medicine
DX: Z12.31 Encounter for screening mammogram for malignant neoplasm of breast (principal)
CPT/HCPCS: 77063; 77067

== ENCOUNTER → 2021-08-23 | Outpatient (CLI) | payer MEDICARE ==
[2021-08-23 13:20] LABS: BASOPHILS # (AUTO) 0.1 10^3/uL (0.0-0.1); BASOPHILS % (AUTO) 1 % (0-10); EOSINOPHILS # (AUTO) 0.1 10^3/uL (0.0-0.3); EOSINOPHILS % (AUTO) 1 % (0-10); HEMATOCRIT 41 % (35-52); HEMOGLOBIN 13.6 g/dL (11.5-16.0); LYMPHOCYTES # (AUTO) 2.1 10^3/uL (1.0-4.0); LYMPHOCYTES % (AUTO) 30 % (12-44); MEAN CORPUSCULAR HEMOGLOBIN 31 pg (25-34); MEAN CORPUSCULAR HGB CONC 33 g/dL (32-36); MEAN CORPUSCULAR VOLUME 93 fL (80-99); MEAN PLATELET VOLUME 8.6 fL (9.0-12.2); MONOCYTES # (AUTO) 0.5 10^3/uL (0.0-1.0); MONOCYTES % (AUTO) 7 % (0-12); NEUTROPHILS # (AUTO) 4.3 10^3/uL (1.8-7.8); NEUTROPHILS % (AUTO) 61 % (42-75); PLATELET COUNT 304 10^3/uL (130-400)
[2021-08-23 13:43] LABS: ALBUMIN 4.2 GM/DL (3.2-4.5); BILIRUBIN,TOTAL 0.5 MG/DL (0.1-1.0); CALCIUM 9.6 MG/DL (8.5-10.1); CREATININE SERUM 0.74 MG/DL (0.60-1.30); TOTAL PROTEIN 6.7 GM/DL (6.4-8.2)
== END ==
LOC: ONC 13:10
PROVIDERS: ATTEND Internal Medicine Hematology & Oncology
DX: C50.511 Malignant neoplasm of lower-outer quadrant of right female breast (principal); J44.9 Chronic obstructive pulmonary disease, unspecified; E78.00 Pure hypercholesterolemia, unspecified; I10 Essential (primary) hypertension; E78.2 Mixed hyperlipidemia; Z90.11 Acquired absence of right breast and nipple; Z98.890 Other specified postprocedural states
CPT/HCPCS: 80053; 85025; G0463; 99213

== ENCOUNTER → 2022-02-19 | Outpatient (CLI) | payer MEDICARE ==
[2022-02-19 13:11] LABS: BASOPHILS # (AUTO) 0.1 10^3/uL (0.0-0.1); BASOPHILS % (AUTO) 1 % (0-10); EOSINOPHILS # (AUTO) 0.1 10^3/uL (0.0-0.3); EOSINOPHILS % (AUTO) 1 % (0-10); HEMATOCRIT 40 % (35-52); HEMOGLOBIN 13.3 g/dL (11.5-16.0); LYMPHOCYTES # (AUTO) 2.1 10^3/uL (1.0-4.0); LYMPHOCYTES % (AUTO) 19 % (12-44); MEAN CORPUSCULAR HEMOGLOBIN 30 pg (25-34); MEAN CORPUSCULAR HGB CONC 33 g/dL (32-36); MEAN CORPUSCULAR VOLUME 91 fL (80-99); MEAN PLATELET VOLUME 8.8 fL (9.0-12.2); MONOCYTES # (AUTO) 0.8 10^3/uL (0.0-1.0); MONOCYTES % (AUTO) 7 % (0-12); NEUTROPHILS # (AUTO) 7.8 10^3/uL (1.8-7.8); NEUTROPHILS % (AUTO) 71 % (42-75); PLATELET COUNT 320 10^3/uL (130-400)
[2022-02-19 13:46] LABS: ALBUMIN 4.2 GM/DL (3.2-4.5); BILIRUBIN,TOTAL 0.5 MG/DL (0.1-1.0); CALCIUM 9.5 MG/DL (8.5-10.1); CREATININE SERUM 0.76 MG/DL (0.60-1.30); POTASSIUM 3.8 MMOL/L (3.6-5.0); TOTAL PROTEIN 7.2 GM/DL (6.4-8.2)
== END ==
LOC: ONC 12:57
PROVIDERS: ATTEND Internal Medicine Hematology & Oncology
DX: Z12.31 Encounter for screening mammogram for malignant neoplasm of breast (principal); J44.9 Chronic obstructive pulmonary disease, unspecified; E78.00 Pure hypercholesterolemia, unspecified; I10 Essential (primary) hypertension; E78.2 Mixed hyperlipidemia; Z90.11 Acquired absence of right breast and nipple; Z85.3 Personal history of malignant neoplasm of breast
CPT/HCPCS: 80053; 85025; G0463; 36415; 99213

== ENCOUNTER → 2022-04-04 | Outpatient (CLI) | payer MEDICARE ==
[~2022-04-04] MED LIST changes: +CATHETER FLUSH 10 ML SYR IV PRN; +HOLD METFORMIN - RECEIVED CONTRAST 20 ML VIAL IV SCH; +IOHEXOL 350 MG/ML 100 ML (OMNIPAQUE 350) VIAL IV ONE; +NS 100 ML (IVPB) BAG IV ONE
--- NOTE | 2022-04-04 12:36 | Diagnostic Imaging Report ---
PROCEDURE: CT abdomen and pelvis with contrast. TECHNIQUE: Multiple contiguous axial images were obtained through the abdomen and pelvis after administration of intravenous contrast. Auto Exposure Controls were utilized during the CT exam to meet ALARA standards for radiation dose reduction. All CT scans use one or more of the following dose optimizing techniques: Automated exposure control, MA and/or KvP adjustment based on patient size and exam type or iterative reconstruction. INDICATION: Left lower quadrant pain. Patient has a history of breast cancer. COMPARISON: Correlative imaging limited to overlapped sections obtained during chest CT 04/29/2018. FINDINGS: There is a large left upper quadrant retroperitoneal mass epicentered at the pancreatic tail and distally contiguous with the splenic hilum as well as likely infiltrating the splenic parenchyma itself. This tissue extends posteriorly ventral to the upper pole of the unobstructed left kidney where it becomes inseparable from the incompletely opacified left renal vein near the hilar portion. In axial plane, this tissue measures maximal 6.8 x 6.6 cm and is presumed malignant and may be of pancreatic primary. There are presumed metastatic peritoneal and omental implants in the left upper quadrant lateral to the spleen. The spleen itself is diffusely heterogeneous in its density and enhancement. There is absence of enhancement of the splenic vein. This may be extrinsically compressed or involved with tumor thrombus. The SMV and portal veins are patent. The cava is patent. There are multiple new low-density but solid-appearing masses throughout the left and right hepatic lobes, presumptively metastatic. There is no bile duct dilatation. The right adrenal gland is normal. The left can never be clearly identified and may be engulfed by the confluent left upper quadrant retroperitoneal tumor. There are perigastric and peripancreatic lymph nodes extending into the maria m hepatis, presumptively metastatic. The unobstructed right kidney is normal. There is no acute biliary pathology. There is no free air. There is trace free fluid tracking along the left colic gutter as well as small amount of pelvic free fluid. No loculated collection or abscess. No free air or viscus perforation. No resultant bowel obstruction. The atherosclerotic aortoiliac and mesenteric vessels are patent and nonaneurysmal. The bones show degenerative disease, but no suspicious lytic or sclerotic osseous lesion. The patient's lung bases are nonacute. IMPRESSION: 1. 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 This results in venous compromise to the splenic vein and left renal vein. There are omental and peritoneal implants as well as presumed upper abdominal mesenteric and retroperitoneal lymphadenopathy and presumptive multifocal hepatic metastases. Splenic heterogeneity is likely a combination of its venous compromise as well as tumoral infiltration. No findings of alf rupture or hemorrhage. 2. No bowel, biliary, or urinary tract obstruction. Small-volume free fluid in the pelvis and left colic gutter. 3. No visualized bony metastases. Lung bases nonacute. Report was faxed to office of Dr. Viki Wiggins by iris at 1235pm. Dictated by: Dictated on workstation # [id number]
== END ==
LOC: RAD 07:21
PROVIDERS: ATTEND Internal Medicine
DX: R10.32 Left lower quadrant pain (principal); R10.84 Generalized abdominal pain; Z85.3 Personal history of malignant neoplasm of breast; Z96.89 Presence of other specified functional implants
CPT/HCPCS: 74177

== ENCOUNTER 2022-04-19 08:09 | Outpatient (CLI) | payer MEDICARE ==
[2022-04-19] VITALS (10 sets, daily range): BP systolic 102–147; BP diastolic 52–88
[~2022-04-19 08:09] MED LIST changes: -CATHETER FLUSH 10 ML SYR IV PRN; -HOLD METFORMIN - RECEIVED CONTRAST 20 ML VIAL IV SCH; -IOHEXOL 350 MG/ML 100 ML (OMNIPAQUE 350) VIAL IV ONE; -NS 100 ML (IVPB) BAG IV ONE
[2022-04-19 08:58] LABS: HEMATOCRIT 37 % (35-52); HEMOGLOBIN 12.4 g/dL (11.5-16.0); MEAN CORPUSCULAR HEMOGLOBIN 29 pg (25-34); MEAN CORPUSCULAR HGB CONC 34 g/dL (32-36); MEAN CORPUSCULAR VOLUME 87 fL (80-99); MEAN PLATELET VOLUME 8.5 fL (9.0-12.2); PLATELET COUNT 418 10^3/uL (130-400); WHITE BLOOD COUNT 10.8 10^3/uL (4.3-11.0)
[2022-04-19] MEDS ORDERED: NS IV 1000 ML 1,000 ML IV STA (09:22)
[2022-04-19] MEDS ORDERED: MIDAZOLAM 2 MG/2 ML (VERSED) VIAL IVP ONE (09:30)
[2022-04-19] MEDS ORDERED: LIDOCAINE 1% INJ 20 ML VIAL INJ ONE (09:30)
[2022-04-19] MEDS ORDERED: fentaNYL INJ 100 MCG/2 ML AMP IVP ONE (09:30)
[2022-04-19] MEDS ORDERED: ESTR10TA9 VG (09:36)
[2022-04-19] MEDS ORDERED: HYDROcodone/APAP 5 MG/325 MG (LORTAB) TAB PO PRN (11:15)
--- NOTE | 2022-04-19 12:58 | Pre-Op Note & Conscious Sedat ---
Pre-Operative Progress Note H&P Reviewed The H&P was reviewed, patient examined and no changes noted. Date H&P Reviewed: April 19, 2022 Time H&P Reviewed: 09:00 Pre-Op Diagnosis: abdominal mass Conscious Sedation Pre-Proced Time 09:00 ASA Score 2 For ASA 3 and 4: Consider anesthesia and medical clearance. Also, for patients with a history of failed moderate sedation consider anesthesia. Airway Lungs Heart ASA score ASA 1: a normal healthy patient ASA 2: a patient with a mild systemic disease (mid diabetes, controlled hypertension, obesity ASA 3: a patient with a severe systemic disease that limits activity (angina, COPD, prior Myocardial infarction) ASA 4: a patient with an incapacitating disease that is a constant threat to life (CHF, renal failure) ASA 5: a moribund patient not expected to survive 24 hrs. (ruptured aneurysm) ASA 6: a declared brain- patient whose organs are being harvested. For emergent operations, add the letter E after the classification Mallampati Classification Grade 2 Sedation Plan Analgesia, Amnesia, Plan communicated to team members, Discussed options with patient/fam, Discussed risks with patient/fam The patient is an appropriate candidate to undergo the planned procedure, sedation, and anesthesia. The patient immediately re-assessed prior to indication. NICOLE MANZANARES MD April 19, 2022 12:57
--- NOTE | 2022-04-19 14:17 | Diagnostic Imaging Report ---
INDICATION: ABD MASS BX TECHNIQUE: All CT scans use one or more of the following dose optimizing techniques: automated exposure control, MA and/or KvP adjustment based on patient size and exam type or iterative reconstruction. The patient was brought to the CT suite, placed on table in the supine position. Axial imaging through the abdomen was performed to evaluate appropriate entry site. The procedure was performed utilizing conscious sedation with radiology nursing and constant patient monitoring. Patient was given a total of 50 mg of fentanyl intravenously and 0.5 mg of Versed intravenously. A total procedure time was approximately 10 minutes. The right upper quadrant was prepped and draped in the usual sterile fashion. A small amount 1% lidocaine was utilized for local anesthesia. An 18-gauge coaxial Temno needle was advanced and placed with its tip within the low-density mass in the right lobe of the liver. Four core biopsies were obtained. A blood patch was injected during needle removal. Hemostasis was obtained using manual compression. The patient tolerated the procedure well and left the department in stable condition. IMPRESSION: Successful CT-guided biopsy of right lobe liver mass utilizing conscious sedation. Pathology results are currently pending. Dictated by: Dictated on workstation # [id number]
== END 2022-04-19 13:11 | disposition home or self-care (01) ==
LOC: SDC 08:09
PROVIDERS: ATTEND Surgery
DX: R16.0 Hepatomegaly, not elsewhere classified (principal)
CPT/HCPCS: 36415; 77012; 85027; 85610; 85730; 99156

== ENCOUNTER 2022-04-27 13:19 | Outpatient (RCR) | payer MEDICARE ==
[~2022-04-27 13:19] MED LIST changes: +ESTR10TA9 VG
== END 2022-05-24 | disposition home or self-care (01) ==
LOC: ONC 13:19
PROVIDERS: ATTEND Internal Medicine Hematology & Oncology
DX: C50.511 Malignant neoplasm of lower-outer quadrant of right female breast (principal); C78.7 Secondary malignant neoplasm of liver and intrahepatic bile duct; J44.9 Chronic obstructive pulmonary disease, unspecified; E78.2 Mixed hyperlipidemia; I10 Essential (primary) hypertension; Z90.11 Acquired absence of right breast and nipple

== ENCOUNTER 2022-06-22 12:50 | Outpatient (RCR) | payer MEDICARE ==
[2022-06-14 15:14] LABS: BASOPHILS # (AUTO) 0.1 10^3/uL (0.0-0.1); BASOPHILS % (AUTO) 1 % (0-10); EOSINOPHILS # (AUTO) 0.8 10^3/uL (0.0-0.3); EOSINOPHILS % (AUTO) 6 % (0-10); HEMATOCRIT 35 % (35-52); HEMOGLOBIN 11.3 g/dL (11.5-16.0); LYMPHOCYTES # (AUTO) 2.3 X 10^3 (1.0-4.0); LYMPHOCYTES % (AUTO) 17 % (12-44); MEAN CORPUSCULAR HEMOGLOBIN 28 pg (25-34); MEAN CORPUSCULAR HGB CONC 33 g/dL (32-36); MEAN CORPUSCULAR VOLUME 84 fL (80-99); MEAN PLATELET VOLUME 8.1 fL (9.0-12.2); MONOCYTES # (AUTO) 1.4 X 10^3 (0.0-1.0); MONOCYTES % (AUTO) 10 % (0-12); NEUTROPHILS # (AUTO) 8.6 X 10^3 (1.8-7.8); NEUTROPHILS % (AUTO) 65 % (42-75); PLATELET COUNT 406 10^3/uL (130-400); WHITE BLOOD COUNT 13.1 10^3/uL (4.3-11.0)
[2022-06-14 15:46] LABS: ALBUMIN 4.1 GM/DL (3.2-4.5); BILIRUBIN,TOTAL 0.3 MG/DL (0.1-1.0); CALCIUM 9.5 MG/DL (8.5-10.1); CREATININE SERUM 0.69 MG/DL (0.60-1.30); TOTAL PROTEIN 7.6 GM/DL (6.4-8.2)
[~2022-06-22 12:50] MED LIST changes: +ACETAMINOPHEN 500 MG TAB (TYLENOL) PO SCH; +HEParin (CENTRAL IV FLUSH) 500 UNIT/5 ML SYR IV PRN; +NS IV 1000 ML (CANCER CTR) IV SCH; +PEMBROLIZUMAB 200 MG in NS (IVPB) 50 ML IV SCH
[2022-06-22 13:10] LABS: BASOPHILS # (AUTO) 0.1 10^3/uL (0.0-0.1); BASOPHILS % (AUTO) 1 % (0-10); EOSINOPHILS # (AUTO) 0.3 10^3/uL (0.0-0.3); EOSINOPHILS % (AUTO) 2 % (0-10); HEMATOCRIT 31 % (35-52); HEMOGLOBIN 10.6 g/dL (11.5-16.0); LYMPHOCYTES % (AUTO) 9 % (12-44); MEAN CORPUSCULAR HEMOGLOBIN 28 pg (25-34); MEAN CORPUSCULAR HGB CONC 34 g/dL (32-36); MEAN CORPUSCULAR VOLUME 81 fL (80-99); MEAN PLATELET VOLUME 8.4 fL (9.0-12.2); MONOCYTES # (AUTO) 0.9 10^3/uL (0.0-1.0); MONOCYTES % (AUTO) 8 % (0-12); NEUTROPHILS # (AUTO) 9.3 10^3/uL (1.8-7.8); NEUTROPHILS % (AUTO) 80 % (42-75); PLATELET COUNT 351 10^3/uL (130-400); WHITE BLOOD COUNT 11.6 10^3/uL (4.3-11.0)
[2022-06-22 13:28] LABS: ALBUMIN 3.6 GM/DL (3.2-4.5); BILIRUBIN,TOTAL 0.4 MG/DL (0.1-1.0); CALCIUM 8.8 MG/DL (8.5-10.1); CREATININE SERUM 0.71 MG/DL (0.60-1.30); POTASSIUM 4.1 MMOL/L (3.6-5.0); TOTAL PROTEIN 6.7 GM/DL (6.4-8.2)
== END 2022-06-24 | disposition home or self-care (01) ==
LOC: ONC 12:50
PROVIDERS: ATTEND Internal Medicine Hematology & Oncology
DX: C50.511 Malignant neoplasm of lower-outer quadrant of right female breast (principal); C78.7 Secondary malignant neoplasm of liver and intrahepatic bile duct; J44.9 Chronic obstructive pulmonary disease, unspecified; E78.00 Pure hypercholesterolemia, unspecified; I10 Essential (primary) hypertension; E78.2 Mixed hyperlipidemia; Z90.11 Acquired absence of right breast and nipple; Z98.890 Other specified postprocedural states
CPT/HCPCS: 82378; 86300; G0463; 36415; 80053; 85025; 99213

== ENCOUNTER → 2022-07-25 | Outpatient (RCR) | payer MEDICARE ==
[2022-07-04 09:57] LABS: BASOPHILS # (AUTO) 0.1 10^3/uL (0.0-0.1); BASOPHILS % (AUTO) 1 % (0-10); EOSINOPHILS # (AUTO) 0.3 10^3/uL (0.0-0.3); EOSINOPHILS % (AUTO) 3 % (0-10); HEMATOCRIT 30 % (35-52); HEMOGLOBIN 9.8 g/dL (11.5-16.0); LYMPHOCYTES # (AUTO) 1.7 10^3/uL (1.0-4.0); LYMPHOCYTES % (AUTO) 15 % (12-44); MEAN CORPUSCULAR HEMOGLOBIN 27 pg (25-34); MEAN CORPUSCULAR HGB CONC 33 g/dL (32-36); MEAN CORPUSCULAR VOLUME 81 fL (80-99); MEAN PLATELET VOLUME 8.4 fL (9.0-12.2); MONOCYTES # (AUTO) 1.3 10^3/uL (0.0-1.0); MONOCYTES % (AUTO) 11 % (0-12); NEUTROPHILS # (AUTO) 7.8 10^3/uL (1.8-7.8); NEUTROPHILS % (AUTO) 69 % (42-75); PLATELET COUNT 534 10^3/uL (130-400); WHITE BLOOD COUNT 11.3 10^3/uL (4.3-11.0)
[2022-07-04 10:11] LABS: ALBUMIN 3.7 GM/DL (3.2-4.5); BILIRUBIN,TOTAL 0.5 MG/DL (0.1-1.0); CALCIUM 9.2 MG/DL (8.5-10.1); CREATININE SERUM 0.63 MG/DL (0.60-1.30); POTASSIUM 3.7 MMOL/L (3.6-5.0)
[~2022-07-25] MED LIST changes: +NS (IVPB) 250 ML ONE
[2022-07-25 09:54] LABS: BASOPHILS # (AUTO) 0.2 10^3/uL (0.0-0.1); BASOPHILS % (AUTO) 2 % (0-10); EOSINOPHILS # (AUTO) 0.2 10^3/uL (0.0-0.3); EOSINOPHILS % (AUTO) 2 % (0-10); HEMATOCRIT 37 % (35-52); LYMPHOCYTES % (AUTO) 17 % (12-44); MEAN CORPUSCULAR HEMOGLOBIN 27 pg (25-34); MEAN CORPUSCULAR HGB CONC 32 g/dL (32-36); MEAN CORPUSCULAR VOLUME 83 fL (80-99); MEAN PLATELET VOLUME 8.5 fL (9.0-12.2); MONOCYTES % (AUTO) 9 % (0-12); NEUTROPHILS % (AUTO) 70 % (42-75); PLATELET COUNT 487 10^3/uL (130-400); WHITE BLOOD COUNT 11.4 10^3/uL (4.3-11.0)
[2022-07-25 10:13] LABS: ALANINE AMINOTRANSFERASE 14 U/L (0-55); ALBUMIN 4.6 GM/DL (3.2-4.5); ALKALINE PHOSPHATASE 121 U/L (40-136); BILIRUBIN,TOTAL 0.6 MG/DL (0.1-1.0); BUN/CREATININE RATIO 19; CALCIUM 10.4 MG/DL (8.5-10.1); CARBON DIOXIDE 24 MMOL/L (21-32); CHLORIDE 101 MMOL/L (98-107); CREATININE SERUM 0.75 MG/DL (0.60-1.30); GFR ESTIMATED 77; GLUCOSE 81 MG/DL (70-105); POTASSIUM 3.8 MMOL/L (3.6-5.0); SODIUM 136 MMOL/L (135-145); TOTAL PROTEIN 8.5 GM/DL (6.4-8.2)
== END | disposition home or self-care (01) ==
LOC: ONC 07-04 09:28
PROVIDERS: ATTEND Internal Medicine Hematology & Oncology
DX: Z51.11 Encounter for antineoplastic chemotherapy (principal); C50.511 Malignant neoplasm of lower-outer quadrant of right female breast; C78.7 Secondary malignant neoplasm of liver and intrahepatic bile duct; J44.9 Chronic obstructive pulmonary disease, unspecified; E78.00 Pure hypercholesterolemia, unspecified; I10 Essential (primary) hypertension; E78.2 Mixed hyperlipidemia; Z90.11 Acquired absence of right breast and nipple; Z98.890 Other specified postprocedural states
CPT/HCPCS: 80053; 85025; 86300; 86304; 96360; 96413; G0463; 36415; 96375

== ENCOUNTER 2022-08-15 09:25 | Outpatient (RCR) | payer MEDICARE ==
[~2022-08-15 09:25] MED LIST changes: +NS (IVPB) 250 ML IV SCH; -NS (IVPB) 250 ML ONE
[2022-08-15 09:50] LABS: BASOPHILS # (AUTO) 0.1 10^3/uL (0.0-0.1); BASOPHILS % (AUTO) 1 % (0-10); EOSINOPHILS # (AUTO) 0.3 10^3/uL (0.0-0.3); EOSINOPHILS % (AUTO) 3 % (0-10); HEMATOCRIT 37 % (35-52); HEMOGLOBIN 11.9 g/dL (11.5-16.0); LYMPHOCYTES # (AUTO) 1.8 10^3/uL (1.0-4.0); LYMPHOCYTES % (AUTO) 20 % (12-44); MEAN CORPUSCULAR HEMOGLOBIN 28 pg (25-34); MEAN CORPUSCULAR HGB CONC 33 g/dL (32-36); MEAN CORPUSCULAR VOLUME 86 fL (80-99); MEAN PLATELET VOLUME 8.7 fL (9.0-12.2); MONOCYTES % (AUTO) 11 % (0-12); NEUTROPHILS # (AUTO) 5.9 10^3/uL (1.8-7.8); NEUTROPHILS % (AUTO) 65 % (42-75); PLATELET COUNT 337 10^3/uL (130-400); WHITE BLOOD COUNT 9.1 10^3/uL (4.3-11.0)
[2022-08-15 10:11] LABS: ALBUMIN 3.9 GM/DL (3.2-4.5); BILIRUBIN,TOTAL 0.5 MG/DL (0.1-1.0); CALCIUM 8.9 MG/DL (8.5-10.1); CREATININE SERUM 0.67 MG/DL (0.60-1.30); POTASSIUM 3.5 MMOL/L (3.6-5.0); TOTAL PROTEIN 6.9 GM/DL (6.4-8.2)
== END 2022-08-24 | disposition home or self-care (01) ==
LOC: ONC 09:25
PROVIDERS: ATTEND Internal Medicine Hematology & Oncology
DX: Z51.11 Encounter for antineoplastic chemotherapy (principal); C50.511 Malignant neoplasm of lower-outer quadrant of right female breast; C78.7 Secondary malignant neoplasm of liver and intrahepatic bile duct; J44.9 Chronic obstructive pulmonary disease, unspecified; E78.00 Pure hypercholesterolemia, unspecified; I10 Essential (primary) hypertension; I25.10 Atherosclerotic heart disease of native coronary artery without angina pectoris; E78.2 Mixed hyperlipidemia; Z98.890 Other specified postprocedural states; Z90.11 Acquired absence of right breast and nipple
CPT/HCPCS: 80053; 85025; 96360; 96413; G0463; 36415

== ENCOUNTER 2022-09-03 14:08 | Outpatient (RCR) | payer MEDICARE ==
[2022-09-03 14:26] LABS: BASOPHILS # (AUTO) 0.1 10^3/uL (0.0-0.1); BASOPHILS % (AUTO) 1 % (0-10); EOSINOPHILS # (AUTO) 0.2 10^3/uL (0.0-0.3); EOSINOPHILS % (AUTO) 2 % (0-10); HEMATOCRIT 37 % (35-52); LYMPHOCYTES # (AUTO) 2.3 X 10^3 (1.0-4.0); LYMPHOCYTES % (AUTO) 22 % (12-44); MEAN CORPUSCULAR HEMOGLOBIN 28 pg (25-34); MEAN CORPUSCULAR HGB CONC 33 g/dL (32-36); MEAN CORPUSCULAR VOLUME 86 fL (80-99); MEAN PLATELET VOLUME 8.4 fL (9.0-12.2); MONOCYTES % (AUTO) 10 % (0-12); NEUTROPHILS % (AUTO) 66 % (42-75); PLATELET COUNT 366 10^3/uL (130-400); WHITE BLOOD COUNT 10.5 10^3/uL (4.3-11.0)
[2022-09-03 14:49] LABS: ALBUMIN 4.2 GM/DL (3.2-4.5); BILIRUBIN,TOTAL 0.4 MG/DL (0.1-1.0); CALCIUM 9.5 MG/DL (8.5-10.1); CREATININE SERUM 0.75 MG/DL (0.60-1.30); POTASSIUM 3.9 MMOL/L (3.6-5.0); TOTAL PROTEIN 7.6 GM/DL (6.4-8.2)
== END 2022-09-24 | disposition home or self-care (01) ==
LOC: ONC 14:08
PROVIDERS: ATTEND Internal Medicine Hematology & Oncology
DX: Z51.11 Encounter for antineoplastic chemotherapy (principal); C50.511 Malignant neoplasm of lower-outer quadrant of right female breast; C78.7 Secondary malignant neoplasm of liver and intrahepatic bile duct; J44.9 Chronic obstructive pulmonary disease, unspecified; E78.00 Pure hypercholesterolemia, unspecified; I10 Essential (primary) hypertension; E78.2 Mixed hyperlipidemia; Z98.890 Other specified postprocedural states; Z90.11 Acquired absence of right breast and nipple
CPT/HCPCS: 80053; 85025; 86300; 86304; 96360; 96413; G0463; 36415

== ENCOUNTER 2022-10-03 05:43 | Outpatient (CLI) | payer MEDICARE ==
[~2022-10-03] VITALS: Ht 165.1 cm; Wt 58.5 kg
[~2022-10-03 05:43] MED LIST changes: -ANAS1TAB50 PO; -CATHETER FLUSH 10 ML SYR IV PRN; -HOLD METFORMIN - RECEIVED CONTRAST 20 ML VIAL IV SCH; -IOHEXOL 350 MG/ML 100 ML (OMNIPAQUE 350) VIAL IV ONE; -LACT10SO64 PO; -LOSA25TA41 PO; -NS 100 ML (IVPB) BAG IV ONE
[2022-10-04] MEDS ORDERED: ANAS1TAB50 PO (12:36)
[2022-10-04] MEDS ORDERED: LACT10SO64 PO (12:36)
[2022-10-04] MEDS ORDERED: LOSA25TA41 PO (12:36)
== END 2022-10-04 12:38 | disposition home or self-care (01) ==
LOC: PREOP 05:43
PROVIDERS: ATTEND Surgery
DX: Z01.818 Encounter for other preprocedural examination (principal)

== ENCOUNTER → 2022-10-03 | Outpatient (CLI) | payer MEDICARE ==
[~2022-10-03] MED LIST changes: -ACETAMINOPHEN 500 MG TAB (TYLENOL) PO SCH; +ANAS1TAB50 PO; +CATHETER FLUSH 10 ML SYR IV PRN; -HEParin (CENTRAL IV FLUSH) 500 UNIT/5 ML SYR IV PRN; +HOLD METFORMIN - RECEIVED CONTRAST 20 ML VIAL IV SCH; +IOHEXOL 350 MG/ML 100 ML (OMNIPAQUE 350) VIAL IV ONE; +LACT10SO64 PO; +LOSA25TA41 PO; -NS (IVPB) 250 ML IV SCH; +NS 100 ML (IVPB) BAG IV ONE; -NS IV 1000 ML (CANCER CTR) IV SCH; -PEMBROLIZUMAB 200 MG in NS (IVPB) 50 ML IV SCH
--- NOTE | 2022-10-03 19:58 | Diagnostic Imaging Report ---
PROCEDURE: CT chest, abdomen, and pelvis with contrast. TECHNIQUE: Multiple contiguous axial images were obtained through the chest, abdomen, and pelvis after the administration of intravenous contrast. Auto Exposure Controls were utilized during the CT exam to meet ALARA standards for radiation dose reduction. INDICATION: Breast cancer for baseline imaging prior to chemotherapy. COMPARISON with CT abdomen and pelvis dated 04/04/[address] 04/29/2018. Chest: There are postsurgical changes to the right breast. No chest wall mass or fluid collection. There are a few small lymph nodes in the bilateral axillae which were not pathologic by size. The largest on the left posterior to the lateral margin of the pectoralis minor is 7.8 mm. These nodes are not appreciably changed in size, number or morphology from the remote chest CT of 2018. There are no enlarged morphologically distorted or suspicious hilar or mediastinal lymph nodes. Lungs showed chronic air trapping and features of COPD. Scattered calcified benign pulmonary parenchymal granulomata unchanged. No suspicious noncalcified chest mass. There is trace atelectasis in the lingula. The lungs otherwise clear. No findings of pneumonia or edema. The thoracic aorta is nonaneurysmal Abdomen pelvis: Low density but solid-appearing masses in the left hepatic lobe near the dome anteriorly are presumptively metastatic. A mass in the caudate lobe is also presumed metastatic. Irregular mixed soft tissue fluid attenuating multilobular mass effect inseparable from the expanded and irregular pancreatic tail becomes inseparable from the splenic hilum and likely infiltrates the splenic parenchyma and distorts the anterior cortex of the upper pole of the left kidney. Adjacent left upper quadrant peritoneal areas of nodularity, unchanged. The superior mesenteric and portal veins are patent however I cannot identify contrast within the splenic vein itself presumed occluded by tumor thrombus. Irregularity of the perihilar left renal vein is again identified although less conspicuous than on prior. Market heterogeneity of the splenic parenchyma is less pronounced than on prior abdominal CT. The adrenal glands unremarkable. There is new or increased upper abdominal perigastric lymphadenopathy. There is no bowel, biliary or urinary tract obstruction. Pelvic sidewalls, ilioinguinal lymph node stations unremarkable. No suspicious lytic or sclerotic bony lesion. IMPRESSION: CHEST: 1. No findings suggestive of thoracic metastasis or acute chest pathology. 2. Postoperative changes without fluid collection. 3. Benign granulomatous disease, chronic. ABDOMEN PELVIS: 1. Soft tissue and cystic infiltrative mass effect, left upper quadrant, involves the pancreatic tail, the spleen and distorts the upper pole of the left kidney with splenic venous and likely at least partial left renal venous involvement with some adjacent omental and mesenteric nodularity presumed neoplastic. This is of uncertain etiology. 2. There is some increased mild upper abdominal perigastric mesenteric adenopathy. 3. No suspect bony lesion. No soft tissue or osseous pelvic metastasis. No bowel, biliary or urinary tract obstruction. Dictated by: Dictated on workstation # [id number]
== END ==
LOC: RAD 12:59
PROVIDERS: ATTEND Internal Medicine Hematology & Oncology
DX: C50.011 Malignant neoplasm of nipple and areola, right female breast (principal); R19.02 Left upper quadrant abdominal swelling, mass and lump
CPT/HCPCS: 71260; 74177

== ENCOUNTER 2022-10-09 12:52 | Day surgery (SDC) | payer MEDICARE ==
[~2022-10-09 12:52] MED LIST changes: +ANAS1TAB50 PO; +LACT10SO64 PO; +LOSA25TA41 PO
[2022-10-09 13:10] VITALS: BP 141/81
[2022-10-09] MEDS ORDERED: PROPOFOL INJECTION 50 ML IV ONE (13:18)
[2022-10-09] MEDS ORDERED: LIDOCAINE/EPI 1%-1:100,000 (XYLOCAINE) 10 ML ONE (13:21)
[2022-10-09] MEDS ORDERED: 0.9% SODIUM CHLORIDE PF INJ 20 ML VIAL ONE (13:21)
[2022-10-09] MEDS ORDERED: HEParin (CENTRAL IV FLUSH) 500 UNIT/5 ML SYR ONE (13:21)
--- NOTE | 2022-10-09 13:51 | Progress Note-Pre Operative ---
Pre-Operative Progress Note Date of Available H&P: Oct 01, 2022 Date H&P Reviewed: Oct 09, 2022 Time H&P Reviewed: 13:51 History & Physical: H&P Reviewed, Patient Examed, No changes noted Pre-Operative Diagnosis: metastatic breast cancer MAG PETE DO Oct 09, 2022 13:51
[2022-10-09] MEDS ORDERED: CLINDAMYCIN 600 MG/50 ML IVPB 50 ML IV ONE (14:06)
[2022-10-09] MEDS ORDERED: LACTATED RINGERS 1,000 ML IV PRN (14:15)
--- NOTE | 2022-10-09 14:44 | Discharge Inst-Simple/Standard ---
Discharge Inst-Standard Patient Instructions/Follow Up Plan of Care/Instructions/FU: Jaiden 2 weeks Activity as Tolerated: No Discharge Diet: Regular Diet Other Inst to Patient Follow up Appt: Make appointment for 2 week. Instructions: No lifting greater than 10 pounds. No strenuous activity. May shower in 24 hours, no tub bath or soaking. Use incentive spirometer at home as directed. No Smoking Skin/Wound Care: You have special glue over your incision that will fall off on it's own. Your port is still accessed. The cancer center will take care of it tomorrow. Make sure your port is flushed every 90 days. Symptoms to Report: Appetite Changes, Extremity Discoloration, Numbness/Tingling, Swelling Increased, Bleeding Excessive, Eyesight Changes, Pain Increased, Urine Color Change, Constipation(Persistent), Fever over 101 degree F, Pain/Pressure in chest, Urinating Difficulty, Cough Up/Vomit Blood, Heart Beat Irreg/Pounding, Pain/Pressure in jaw, Vaginal Bleeding Increase, Cramps in feet or legs, Lightheadedness, Pain/Pressure in shoulder, Diarrhea(Persistent), Memory Changes Suddenly, Questions/Concerns, Weight gain consecutive days, Dizziness/Fainting, Nausea/Vomiting, Shortness of Breath, Weight gain over 2 pounds If questions or concerns contact your physician Or seek help at emergency department. MAG PETE DO Oct 09, 2022 14:44
[2022-10-09 14:49] VITALS: BP 121/63
--- NOTE | 2022-10-09 14:55 | Anesthesia-General Post-Op ---
MAC Patient Condition Mental Status/LOC: Same as Preop Cardiovascular: Satisfactory Nausea/Vomiting: Absent Respiratory: Satisfactory Pain: Controlled Complications: Absent Post Op Complications Complications None Follow Up Care/Instructions Patient Instructions None needed. Anesthesiology Discharge Order Discharge Order Patient is doing well, no complaints, stable vital signs, no apparent adverse anesthesia problems. No complications reported per nursing. MARGARITA NEWMAN CRNA Oct 09, 2022 14:55
[2022-10-09 15:00] VITALS: BP 114/69
--- NOTE | 2022-10-09 15:07 | Progress Note-Post Operative ---
Post-Operative Progess Note Surgeon (s)/Cleaning Laborer (s) Surgeon MAG PETE DO Cleaning Laborer: na Pre-Operative Diagnosis metastatic breast cancer Post-Operative Diagnosis same Procedure & Operative Findings Date of Procedure 10/09/22 Procedure Performed/Findings PROCEDURE: Right internal jugular port placement using ultrasound guidance. COMPLICATIONS: None. INDICATIONS: The patient is a 87 year old female with metastatic breast cancer. Patient understands the risks and benefits of port placement and wished to proceed with the procedure. Consent was signed on the chart. PROCEDURE: The patient was taken to the operating suite, was prepped and draped in the sterile fashion. A surgical pause was performed. Ultrasound was used to locate the internal jugular vein. Once located anesthetic was infiltrated above it. Using micro-access kit, the right internal vein was accessed. Dark nonpulsatile blood was withdrawn. The wire was inserted. Fluoroscopy assured proper placement. The needle was removed. The micro-access dilator was advanced over the wire and the wire was removed. The regular wire was inserted and fluoroscopy assured proper placement. The wire was then secured. Local anesthetic was used to anesthetize from the neck for tunneling down to the right chest and for pocket creation. A 15 blade scalpel was used to make an incision over the right chest. Cautery was used to dissect down to the pectoral fascia. A pocket was created with blunt dissection. The dilator sheath was then advanced over the wire under fluoroscopy and the dilator and wire were removed. The Groshong catheter was inserted through the sheath and the sheath was then removed. The Groshong wire was removed. The catheter was then tunneled to the right chest pocket. Fluoroscopy was used to cut to length and this was then attached to the port which was then placed within the pocket. The port was then accessed without difficulty. It was then flushed with saline and then heparin. The subcutaneous tissues were then reapproximated using 3-0 Vicryl. The areas were then washed and dried. Skin Affix was placed over incision. The insertion point of the neck Skin Affix was placed over the incision. The patient tolerated the procedure well without complication and was taken to recovery room in stable condition. Chest x-ray is pending. Anesthesia Type mac c local Estimated Blood Loss Estimated blood loss (mL): minimal Specimens/Packing Specimens Removed MAG Chin DO Oct 09, 2022 15:07
[2022-10-09 15:10] VITALS: BP_SYST 137; BP_SYST 140; BP_DIAS 67; BP_DIAS 73
--- NOTE | 2022-10-09 15:33 | Diagnostic Imaging Report ---
INDICATION: Port-A-Cath placement. EXAMINATION: Portable chest, 3:06 p.m. FINDINGS: Right IJ Port-A-Cath tip projects over the SVC. Heart size and pulmonary vascularity are normal. Lungs are clear. There are no effusions or pneumothoraces. IMPRESSION: No acute abnormalities in the chest. Dictated by: Dictated on workstation # [id number]
[2022-10-09 15:40] VITALS: BP 126/73
[2022-10-09 16:10] VITALS: BP 126/73
--- NOTE | 2022-10-09 16:40 | Diagnostic Imaging Report ---
INDICATION: Fluoroscopy for port placement. FINDINGS: Fluoroscopy was provided in the OR during port placement. 16 seconds of fluoroscopic time was utilized. Three images were obtained demonstrating a right chest wall port with the tip overlying the SVC. IMPRESSION: Fluoroscopy for port placement. Dictated by: Dictated on workstation # [id number]
== END 2022-10-09 16:10 | disposition home or self-care (01) ==
LOC: SDC 12:52
PROVIDERS: ATTEND Surgery
DX: C50.919 Malignant neoplasm of unspecified site of unspecified female breast (principal); C78.7 Secondary malignant neoplasm of liver and intrahepatic bile duct; I87.2 Venous insufficiency (chronic) (peripheral)
CPT/HCPCS: 36561; 71045; 76000; 87081; C1788

== ENCOUNTER → 2022-10-24 | Outpatient (RCR) | payer MEDICARE ==
[2022-09-26 09:59] LABS: BASOPHILS # (AUTO) 0.1 10^3/uL (0.0-0.1); BASOPHILS % (AUTO) 1 % (0-10); EOSINOPHILS # (AUTO) 0.4 10^3/uL (0.0-0.3); EOSINOPHILS % (AUTO) 4 % (0-10); HEMATOCRIT 41 % (35-52); HEMOGLOBIN 13.2 g/dL (11.5-16.0); LYMPHOCYTES # (AUTO) 1.6 10^3/uL (1.0-4.0); LYMPHOCYTES % (AUTO) 15 % (12-44); MEAN CORPUSCULAR HEMOGLOBIN 28 pg (25-34); MEAN CORPUSCULAR HGB CONC 33 g/dL (32-36); MEAN CORPUSCULAR VOLUME 87 fL (80-99); MEAN PLATELET VOLUME 8.4 fL (9.0-12.2); MONOCYTES # (AUTO) 1.2 10^3/uL (0.0-1.0); MONOCYTES % (AUTO) 11 % (0-12); NEUTROPHILS # (AUTO) 7.8 10^3/uL (1.8-7.8); NEUTROPHILS % (AUTO) 70 % (42-75); PLATELET COUNT 389 10^3/uL (130-400); WHITE BLOOD COUNT 11.2 10^3/uL (4.3-11.0)
[2022-09-26 10:22] LABS: ALBUMIN 4.4 GM/DL (3.2-4.5); BILIRUBIN,TOTAL 0.4 MG/DL (0.1-1.0); CREATININE SERUM 0.7 MG/DL (0.60-1.30); POTASSIUM 3.9 MMOL/L (3.6-5.0); TOTAL PROTEIN 8.1 GM/DL (6.4-8.2)
[2022-10-10 12:31] LABS: BASOPHILS % (AUTO) 0 % (0-10); EOSINOPHILS % (AUTO) 0 % (0-10); HEMATOCRIT 34 % (35-52); HEMOGLOBIN 11.7 g/dL (11.5-16.0); LYMPHOCYTES # (AUTO) 0.9 10^3/uL (1.0-4.0); LYMPHOCYTES % (AUTO) 8 % (12-44); MEAN CORPUSCULAR HEMOGLOBIN 29 pg (25-34); MEAN CORPUSCULAR HGB CONC 34 g/dL (32-36); MEAN CORPUSCULAR VOLUME 83 fL (80-99); MEAN PLATELET VOLUME 8.2 fL (9.0-12.2); MONOCYTES # (AUTO) 0.5 10^3/uL (0.0-1.0); MONOCYTES % (AUTO) 5 % (0-12); NEUTROPHILS # (AUTO) 10.2 10^3/uL (1.8-7.8); NEUTROPHILS % (AUTO) 87 % (42-75); PLATELET COUNT 398 10^3/uL (130-400); WHITE BLOOD COUNT 11.7 10^3/uL (4.3-11.0)
[2022-10-10 12:57] LABS: ALBUMIN 3.7 GM/DL (3.2-4.5); BILIRUBIN,TOTAL 0.3 MG/DL (0.1-1.0); CALCIUM 8.9 MG/DL (8.5-10.1); CREATININE SERUM 0.64 MG/DL (0.60-1.30); TOTAL PROTEIN 6.8 GM/DL (6.4-8.2)
[2022-10-17 12:20] LABS: BASOPHILS % (AUTO) 0 % (0-10); EOSINOPHILS % (AUTO) 0 % (0-10); HEMATOCRIT 33 % (35-52); HEMOGLOBIN 11.3 g/dL (11.5-16.0); LYMPHOCYTES # (AUTO) 0.9 10^3/uL (1.0-4.0); LYMPHOCYTES % (AUTO) 10 % (12-44); MEAN CORPUSCULAR HEMOGLOBIN 29 pg (25-34); MEAN CORPUSCULAR HGB CONC 35 g/dL (32-36); MEAN CORPUSCULAR VOLUME 83 fL (80-99); MEAN PLATELET VOLUME 8.6 fL (9.0-12.2); MONOCYTES # (AUTO) 0.6 10^3/uL (0.0-1.0); MONOCYTES % (AUTO) 6 % (0-12); NEUTROPHILS # (AUTO) 7.8 10^3/uL (1.8-7.8); NEUTROPHILS % (AUTO) 83 % (42-75); PLATELET COUNT 330 10^3/uL (130-400); WHITE BLOOD COUNT 9.4 10^3/uL (4.3-11.0)
[2022-10-17 12:38] LABS: ALBUMIN 3.8 GM/DL (3.2-4.5); BILIRUBIN,TOTAL 0.3 MG/DL (0.1-1.0); CALCIUM 8.8 MG/DL (8.5-10.1); CREATININE SERUM 0.67 MG/DL (0.60-1.30); POTASSIUM 4.3 MMOL/L (3.6-5.0); TOTAL PROTEIN 6.7 GM/DL (6.4-8.2)
[~2022-10-24] VITALS: Ht 165.1 cm; Wt 58.5 kg
[~2022-10-24] MED LIST changes: +ACETAMINOPHEN 500 MG TAB (TYLENOL) PO SCH; +ALTEPLASE 2 MG (CATHFLO) IV ONE; +FAMOTIDINE 20MG/2ML IV (PEPCID) IV PRN; +FOSAPREPITANT (CANCER CENTER) 150 MG in NS (IVPB) CANCER CENTER ONLY 150 ML IV SCH; +HEParin (CENTRAL IV FLUSH) 500 UNIT/5 ML SYR IV PRN; +NORMAL SALINE IV SCH; +NS (IVPB) 250 ML IV SCH; +NS IV 1000 ML (CANCER CTR) IV SCH; +PACLITAXEL IV SCH; +PALONOSETRON HCL 0.25 MG, dexAMETHasone INJECTION 10 MG in NS (IVPB) 50 ML IV SCH; +PEMBROLIZUMAB 200 MG in NS (IVPB) 50 ML IV SCH; +diphenhydrAMINE 25 MG TAB (BENADRYL) PO SCH
[2022-10-24 13:33] LABS: BASOPHILS % (AUTO) 0 % (0-10); EOSINOPHILS % (AUTO) 1 % (0-10); HEMATOCRIT 33 % (35-52); HEMOGLOBIN 11.1 g/dL (11.5-16.0); LYMPHOCYTES # (AUTO) 1.1 10^3/uL (1.0-4.0); LYMPHOCYTES % (AUTO) 15 % (12-44); MEAN CORPUSCULAR HEMOGLOBIN 29 pg (25-34); MEAN CORPUSCULAR HGB CONC 34 g/dL (32-36); MEAN CORPUSCULAR VOLUME 85 fL (80-99); MEAN PLATELET VOLUME 8.4 fL (9.0-12.2); MONOCYTES # (AUTO) 0.6 10^3/uL (0.0-1.0); MONOCYTES % (AUTO) 8 % (0-12); NEUTROPHILS # (AUTO) 5.9 10^3/uL (1.8-7.8); NEUTROPHILS % (AUTO) 76 % (42-75); PLATELET COUNT 337 10^3/uL (130-400); WHITE BLOOD COUNT 7.7 10^3/uL (4.3-11.0)
[2022-10-24 13:55] LABS: ALBUMIN 3.8 GM/DL (3.2-4.5); BILIRUBIN,TOTAL 0.3 MG/DL (0.1-1.0); CALCIUM 8.7 MG/DL (8.5-10.1); CREATININE SERUM 0.67 MG/DL (0.60-1.30); POTASSIUM 3.9 MMOL/L (3.6-5.0); TOTAL PROTEIN 6.6 GM/DL (6.4-8.2)
== END | disposition still patient (30) ==
LOC: ONC 09-26 09:43
PROVIDERS: ATTEND Internal Medicine Hematology & Oncology
DX: Z51.11 Encounter for antineoplastic chemotherapy (principal); C50.511 Malignant neoplasm of lower-outer quadrant of right female breast; C78.7 Secondary malignant neoplasm of liver and intrahepatic bile duct; J44.9 Chronic obstructive pulmonary disease, unspecified; E78.00 Pure hypercholesterolemia, unspecified; I10 Essential (primary) hypertension; E78.2 Mixed hyperlipidemia; Z98.890 Other specified postprocedural states; Z90.11 Acquired absence of right breast and nipple
CPT/HCPCS: 80053; 85025; 86300; 86304; 96360; 96413; G0463; 36415; 36591; 36593; 96361; 96367; 96375; 96417; 99213

== ENCOUNTER 2022-11-21 10:19 | Outpatient (RCR) | payer MEDICARE ==
[2022-10-31 14:39] LABS: BASOPHILS % (AUTO) 0 % (0-10); EOSINOPHILS # (AUTO) 0.1 10^3/uL (0.0-0.3); EOSINOPHILS % (AUTO) 1 % (0-10); HEMATOCRIT 29 % (35-52); HEMOGLOBIN 10.3 g/dL (11.5-16.0); LYMPHOCYTES # (AUTO) 1.1 10^3/uL (1.0-4.0); LYMPHOCYTES % (AUTO) 14 % (12-44); MEAN CORPUSCULAR HEMOGLOBIN 29 pg (25-34); MEAN CORPUSCULAR HGB CONC 35 g/dL (32-36); MEAN CORPUSCULAR VOLUME 82 fL (80-99); MEAN PLATELET VOLUME 8.2 fL (9.0-12.2); MONOCYTES # (AUTO) 0.7 10^3/uL (0.0-1.0); MONOCYTES % (AUTO) 10 % (0-12); NEUTROPHILS # (AUTO) 5.7 10^3/uL (1.8-7.8); NEUTROPHILS % (AUTO) 75 % (42-75); PLATELET COUNT 373 10^3/uL (130-400); WHITE BLOOD COUNT 7.6 10^3/uL (4.3-11.0)
[2022-10-31 15:15] LABS: ALBUMIN 3.6 GM/DL (3.2-4.5); BILIRUBIN,TOTAL 0.3 MG/DL (0.1-1.0); CALCIUM 8.6 MG/DL (8.5-10.1); CREATININE SERUM 0.6 MG/DL (0.60-1.30); POTASSIUM 3.8 MMOL/L (3.6-5.0); TOTAL PROTEIN 5.9 GM/DL (6.4-8.2)
[2022-11-08 11:49] LABS: BASOPHILS # (AUTO) 0.1 10^3/uL (0.0-0.1); BASOPHILS % (AUTO) 1 % (0-10); EOSINOPHILS # (AUTO) 0.3 10^3/uL (0.0-0.3); EOSINOPHILS % (AUTO) 4 % (0-10); HEMATOCRIT 28 % (35-52); HEMOGLOBIN 9.9 g/dL (11.5-16.0); LYMPHOCYTES % (AUTO) 11 % (12-44); MEAN CORPUSCULAR HEMOGLOBIN 29 pg (25-34); MEAN CORPUSCULAR HGB CONC 35 g/dL (32-36); MEAN CORPUSCULAR VOLUME 83 fL (80-99); MEAN PLATELET VOLUME 8.2 fL (9.0-12.2); MONOCYTES # (AUTO) 0.8 10^3/uL (0.0-1.0); MONOCYTES % (AUTO) 9 % (0-12); NEUTROPHILS # (AUTO) 6.7 10^3/uL (1.8-7.8); NEUTROPHILS % (AUTO) 75 % (42-75); PLATELET COUNT 321 10^3/uL (130-400); WHITE BLOOD COUNT 8.9 10^3/uL (4.3-11.0)
[2022-11-08 12:17] LABS: ALBUMIN 3.4 GM/DL (3.2-4.5); POTASSIUM 3.7 MMOL/L (3.6-5.0)
[2022-11-08 12:19] LABS: CALCIUM 8.4 MG/DL (8.5-10.1)
[2022-11-08 12:20] LABS: TOTAL PROTEIN 5.8 GM/DL (6.4-8.2)
[2022-11-08 12:21] LABS: BILIRUBIN,TOTAL 0.5 MG/DL (0.1-1.0)
[2022-11-08 12:23] LABS: CREATININE SERUM 0.63 MG/DL (0.60-1.30)
[2022-11-15 10:03] LABS: BASOPHILS # (AUTO) 0.1 10^3/uL (0.0-0.1); BASOPHILS % (AUTO) 1 % (0-10); EOSINOPHILS # (AUTO) 0.4 10^3/uL (0.0-0.3); EOSINOPHILS % (AUTO) 3 % (0-10); HEMATOCRIT 28 % (35-52); HEMOGLOBIN 9.8 g/dL (11.5-16.0); LYMPHOCYTES # (AUTO) 0.7 10^3/uL (1.0-4.0); LYMPHOCYTES % (AUTO) 6 % (12-44); MEAN CORPUSCULAR HEMOGLOBIN 29 pg (25-34); MEAN CORPUSCULAR HGB CONC 36 g/dL (32-36); MEAN CORPUSCULAR VOLUME 82 fL (80-99); MEAN PLATELET VOLUME 8.5 fL (9.0-12.2); MONOCYTES % (AUTO) 9 % (0-12); NEUTROPHILS # (AUTO) 8.7 10^3/uL (1.8-7.8); NEUTROPHILS % (AUTO) 80 % (42-75); PLATELET COUNT 353 10^3/uL (130-400); WHITE BLOOD COUNT 10.9 10^3/uL (4.3-11.0)
[2022-11-15 10:20] LABS: ALBUMIN 3.3 GM/DL (3.2-4.5); BILIRUBIN,TOTAL 0.6 MG/DL (0.1-1.0); CALCIUM 8.3 MG/DL (8.5-10.1); CREATININE SERUM 0.61 MG/DL (0.60-1.30); POTASSIUM 3.5 MMOL/L (3.6-5.0); TOTAL PROTEIN 5.6 GM/DL (6.4-8.2)
[~2022-11-21 10:19] MED LIST changes: -ACETAMINOPHEN 500 MG TAB (TYLENOL) PO SCH; -ALTEPLASE 2 MG (CATHFLO) IV ONE; -NS (IVPB) 250 ML IV SCH
[2022-11-21 10:37] LABS: BASOPHILS # (AUTO) 0.1 10^3/uL (0.0-0.1); BASOPHILS % (AUTO) 1 % (0-10); EOSINOPHILS # (AUTO) 0.3 10^3/uL (0.0-0.3); EOSINOPHILS % (AUTO) 3 % (0-10); HEMATOCRIT 28 % (35-52); HEMOGLOBIN 9.9 g/dL (11.5-16.0); LYMPHOCYTES # (AUTO) 0.8 10^3/uL (1.0-4.0); LYMPHOCYTES % (AUTO) 8 % (12-44); MEAN CORPUSCULAR HEMOGLOBIN 29 pg (25-34); MEAN CORPUSCULAR HGB CONC 35 g/dL (32-36); MEAN CORPUSCULAR VOLUME 82 fL (80-99); MEAN PLATELET VOLUME 8.8 fL (9.0-12.2); MONOCYTES # (AUTO) 0.7 10^3/uL (0.0-1.0); MONOCYTES % (AUTO) 6 % (0-12); NEUTROPHILS # (AUTO) 8.7 10^3/uL (1.8-7.8); NEUTROPHILS % (AUTO) 81 % (42-75); PLATELET COUNT 378 10^3/uL (130-400); WHITE BLOOD COUNT 10.8 10^3/uL (4.3-11.0)
[2022-11-21 10:58] LABS: ALBUMIN 3.4 GM/DL (3.2-4.5); BILIRUBIN,TOTAL 0.5 MG/DL (0.1-1.0); CALCIUM 8.4 MG/DL (8.5-10.1); CREATININE SERUM 0.64 MG/DL (0.60-1.30); POTASSIUM 3.7 MMOL/L (3.6-5.0)
== END 2022-11-24 | disposition home or self-care (01) ==
LOC: ONC 10:19
PROVIDERS: ATTEND Internal Medicine Hematology & Oncology
DX: Z51.11 Encounter for antineoplastic chemotherapy (principal); Z45.2 Encounter for adjustment and management of vascular access device; C50.511 Malignant neoplasm of lower-outer quadrant of right female breast; C78.7 Secondary malignant neoplasm of liver and intrahepatic bile duct; E78.00 Pure hypercholesterolemia, unspecified; I10 Essential (primary) hypertension; E78.2 Mixed hyperlipidemia; Z98.890 Other specified postprocedural states; Z90.11 Acquired absence of right breast and nipple
CPT/HCPCS: 80053 ×2; 85025 ×2; 86300; 86304; 96360 ×2; 96361 ×2; 96367 ×2; 96375 ×2; 96413 ×2; G0463; 36591; 82274; 96417

== ENCOUNTER 2022-11-28 12:58 | Outpatient (RCR) | payer MEDICARE ==
[2022-11-28 13:41] LABS: BASOPHILS # (AUTO) 0.1 10^3/uL (0.0-0.1); BASOPHILS % (AUTO) 1 % (0-10); EOSINOPHILS # (AUTO) 0.2 10^3/uL (0.0-0.3); EOSINOPHILS % (AUTO) 2 % (0-10); HEMATOCRIT 28 % (35-52); HEMOGLOBIN 9.7 g/dL (11.5-16.0); LYMPHOCYTES # (AUTO) 0.8 10^3/uL (1.0-4.0); LYMPHOCYTES % (AUTO) 6 % (12-44); MEAN CORPUSCULAR HEMOGLOBIN 29 pg (25-34); MEAN CORPUSCULAR HGB CONC 35 g/dL (32-36); MEAN CORPUSCULAR VOLUME 83 fL (80-99); MEAN PLATELET VOLUME 8.5 fL (9.0-12.2); MONOCYTES # (AUTO) 0.8 10^3/uL (0.0-1.0); MONOCYTES % (AUTO) 6 % (0-12); NEUTROPHILS # (AUTO) 10.8 10^3/uL (1.8-7.8); NEUTROPHILS % (AUTO) 84 % (42-75); PLATELET COUNT 397 10^3/uL (130-400); WHITE BLOOD COUNT 12.9 10^3/uL (4.3-11.0)
--- NOTE | 2022-11-28 14:07 | Diagnostic Imaging Report ---
EXAMINATION: Chest 1 view HISTORY: Shortness of breath COMPARISON: 10/09/2022 FINDINGS: Heart size and pulmonary vasculature are normal. There are patchy interstitial opacities within the mid and upper lungs, right greater than left. No significant pleural effusion or pneumothorax. A right-sided portacatheter is unchanged. The osseous structures are intact. IMPRESSION: 1. Patchy interstitial opacities within the upper lungs which is concerning for pneumonia or pulmonary edema. Dictated by: Dictated on workstation # [id number]
[2022-11-28 14:08] LABS: ALBUMIN 3.3 GM/DL (3.2-4.5); BILIRUBIN,TOTAL 0.6 MG/DL (0.1-1.0); CALCIUM 8.3 MG/DL (8.5-10.1); CREATININE SERUM 0.65 MG/DL (0.60-1.30); POTASSIUM 3.7 MMOL/L (3.6-5.0); TOTAL PROTEIN 5.7 GM/DL (6.4-8.2)
[2022-11-28] MEDS ORDERED: FE PO (18:55)
[2022-11-29] MEDS ORDERED: MULT-1136 PO (10:48)
[2022-11-29] MEDS ORDERED: DOCU-26 PO (10:48)
[2022-11-29] MEDS ORDERED: VIT-10 PO (10:48)
[2022-11-29] MEDS ORDERED: CHOL20002 PO (10:48)
[2022-11-29] MEDS ORDERED: FERR-74 PO (10:48)
[2022-12-06] MEDS ORDERED: AMLO-250 PO (12:13)
[2022-12-06] MEDS ORDERED: MONT-40 PO (12:14)
[2022-12-06] MEDS ORDERED: LOSA25TA41 PO (12:14)
== END 2022-12-25 | disposition home or self-care (01) ==
LOC: ONC 12:58
PROVIDERS: ATTEND Internal Medicine Hematology & Oncology
DX: Z45.2 Encounter for adjustment and management of vascular access device (principal); C50.511 Malignant neoplasm of lower-outer quadrant of right female breast; C78.7 Secondary malignant neoplasm of liver and intrahepatic bile duct; I10 Essential (primary) hypertension; E78.2 Mixed hyperlipidemia; Z98.890 Other specified postprocedural states; Z90.11 Acquired absence of right breast and nipple
CPT/HCPCS: 36591; 71045; 80053; 85025

== ENCOUNTER 2022-11-28 14:30 | Inpatient (IN) | payer MEDICARE ==
[~2022-11-28] VITALS: Ht 167 cm; Wt 67.5 kg
[~2022-11-28 14:30] MED LIST changes: -FAMOTIDINE 20MG/2ML IV (PEPCID) IV PRN; -FOSAPREPITANT (CANCER CENTER) 150 MG in NS (IVPB) CANCER CENTER ONLY 150 ML IV SCH; -HEParin (CENTRAL IV FLUSH) 500 UNIT/5 ML SYR IV PRN; -NORMAL SALINE IV SCH; -NS IV 1000 ML (CANCER CTR) IV SCH; -PACLITAXEL IV SCH; -PALONOSETRON HCL 0.25 MG, dexAMETHasone INJECTION 10 MG in NS (IVPB) 50 ML IV SCH; -PEMBROLIZUMAB 200 MG in NS (IVPB) 50 ML IV SCH; -diphenhydrAMINE 25 MG TAB (BENADRYL) PO SCH
--- NOTE | 2022-11-28 15:06 | ED Respiratory ---
General Chief Complaint: Respiratory Problems Stated Complaint: SOB | LOW OXYGEN LEVEL Nursing Triage Note: ARRIVED VIA AMB FROM CANCER CENTER WITH A LOW PULSE OX AND POSSIBLE PENUMONIA ON THE XRAY. Source: patient Exam Limitations: no limitations History of Present Illness Date Seen by Provider: Nov 28, 2022 Time Seen by Provider: 14:59 Initial Comments This is an 87-year-old female who ambulated from the [facility] center to the emergency department for concerns of hypoxia and shortness of breath. She is currently receiving chemotherapy and Keytruda through the [facility] and was scheduled to have her dose of Keytruda today. While nursing staff was obtaining her vitals she was noted to have an oxygen saturation of 88 to 89% on room air. Basic labs and a chest x-ray was obtained and indicative of bilateral pneumonia. She was referred to the ER for additional work-up. After ambulating into the ER her oxygen saturation was in the upper 70s on room air. States she has generalized weakness, chronic cough, no increase in symptoms. Denies fever, chills. Has intermittent nausea/vomiting due to chemotherapy but is pre-treated prior receiving treatment. Allergies and Home Medications Allergies Coded Allergies: Penicillins (Verified Allergy, Unknown, EDEMA YEARS AGO, UNKNOWN IF ANY OTHER REACTION, 10/04/22) Patient Home Medication List Home Medication List Reviewed: Yes Albuterol Sulfate (Ventolin Hfa) 1 Puff Puff, 2 PUFF IH Q4H PRN for WHEEZING, (Reported) Entered as Reported by: VENUS KYLE on 07/16/18 1420 Alprazolam (Alprazolam) 0.5 Mg Tablet, 0.5 MG PO HS PRN for ANXIETY, (Reported) Entered as Reported by: YOSEF RECINOS on 04/14/18 1454 Amlodipine Besylate (Amlodipine Besylate) 5 Mg Tablet, 5 MG PO DAILY, (Reported) Entered as Reported by: VENUS KYLE on 07/16/18 1420 Anastrozole (Arimidex) 1 Mg Tablet, 1 MG PO DAILY, (Reported) Entered as Reported by: JANNIE TURNRE on 10/04/22 1236 Cholecalciferol (Vitamin D3) (Vitamin D3) 2,000 Unit Capsule, 2,000 UNIT PO DAILY, (Reported) Entered as Reported by: YOSEF RECINOS on 04/14/18 1509 Lactulose (Constulose) 10 Gram/15 Ml Solution, 10 GM PO BID, (Reported) Entered as Reported by: JANNIE TURNER on 10/04/22 1236 Losartan Potassium (Losartan Potassium) 25 Mg Tablet, 25 MG PO DAILY, (Reported) Entered as Reported by: JANNIE TURNER on 10/04/22 1236 Lovastatin (Lovastatin) 40 Mg Tablet, 40 MG PO HS, (Reported) Entered as Reported by: YOSEF RECINOS on 04/14/18 1454 Multivitamin (Daily Multiple Vitamin) 1 Each Tablet, 1 TAB PO DAILY, (Reported) Entered as Reported by: YOSEF RECINOS on 04/14/18 1509 Vit C/Vit E/Lutein/Min/[place]-3 (Ocuvite Softgel) 1 Each Capsule, 1 CAP PO DAILY, (Reported) Entered as Reported by: YOSEF RECINOS on 04/14/18 1509 Review of Systems Review of Systems Constitutional: see HPI Past Lhkfdbe-Zuuyds-Xlwlli Hx Patient Social History Tobacco Use?: Yes Smoking Status: Current Everyday Smoker Substance use?: No Alcohol Use?: Yes Alcohol Frequency: Rarely Immunizations Up To Date First/Initial COVID19 Vaccinat: 2020 Second COVID19 Vaccination Derrick: 2020 Third COVID19 Vaccination Date: 2021 Seasonal Allergies Seasonal Allergies: No Past Medical History Surgeries: Yes (skin ca removed, R breast lumpectomy, CATS, MACS) Eye Surgery, Hysterectomy Respiratory: Yes (hx histoplasmosis) Asthma Currently Using CPAP: No Currently Using BIPAP: No Cardiac: Yes High Cholesterol, Hypertension Neurological: No Reproductive Disorders: No EX CHEF History: Hysterectomy Genitourinary: No Gastrointestinal: No Musculoskeletal: No Endocrine: No HEENT: Yes (macular hole surgery, cataract surgery) Cataract Cancer: Yes Skin, Breast Did You Recieve Any Treatments: No What Type of Treatment Did You: Surgical Intervention Psychosocial: No Depression Integumentary: No Blood Disorders: No Adverse Reaction/Blood Tranf: No Family Medical History Hypertension Physical Exam Vital Signs - First Documented 11/28/22 14:38 Temp 37.6 Pulse 106 Resp 16 B/P (MAP) 139/74 (95) Pulse Ox 78 O2 Delivery Room Air Capillary Refill : Less Than 3 Seconds Height: 5'5.00" Weight: 150lbs. 0.0oz. 68.265063al; 21.00 BMI Method: General Appearance: WD/WN, no apparent distress Eyes: Bilateral Eye Normal Inspection, Bilateral Eye PERRL, Bilateral Eye EOMI HEENT: PERRL/EOMI, normal ENT inspection Neck: full range of motion Respiratory: lungs clear, normal breath sounds, other (increased effort ) Cardiovascular: regular rate, rhythm, no murmur Gastrointestinal: normal bowel sounds, non tender, soft Extremities: normal range of motion, normal inspection, normal capillary refill Neurologic/Psychiatric: no motor/sensory deficits, alert, normal mood/affect, oriented x 3 Skin: normal color, warm/dry Focused Exam Lactate Level 11/28/22 15:15: Lactic Acid Level 1.15 Lactic Acid Level Laboratory Tests Test 11/28/22 15:15 Lactic Acid Level 1.15 MMOL/L (0.50-2.00) Progress/Results/Core Measures Suspected Sepsis SIRS Temperature: Pulse: 106 Respiratory Rate: 16 Blood Pressure 139 /74 Mean: 95 11/28/22 15:15: Lactic Acid Level 1.15 Laboratory Tests 11/28/22 15:35: INR Comment 1.1 Results/Orders Lab Results Laboratory Tests Test 11/28/22 15:15 11/28/22 15:35 11/28/22 15:43 11/28/22 15:47 Range/Units Lactic Acid Level 1.15 0.50-2.00 MMOL/L Prothrombin Time 15.1 H 12.2-14.7 SEC INR Comment 1.1 0.8-1.4 Activated Partial Thromboplast Time 31 24-35 SEC Influenza Type A (RT-PCR) Not Detected Not Detecte Influenza Type B (RT-PCR) Not Detected Not Detecte SARS-CoV-2 RNA (RT-PCR) Not Detected Not Detecte My Orders Orders - JOANNE STEWART [employer] Blood Culture (11/28/22 15:03) Sputum Culture (11/28/22 15:03) Urinalysis (11/28/22 15:03) Urine Culture (11/28/22 15:03) Protime With Inr (11/28/22 15:03) Partial Thromboplastin Time (11/28/22 15:03) Ed Iv/Invasive Line Start (11/28/22 15:03) Vital Signs Adult Sepsis Patie Q15M (11/28/22 15:03) O2 (11/28/22 15:03) Remove Rings In Anticipation O (11/28/22 15:03) Lactic Acid Analyzer (11/28/22 15:03) Covid 19 Inhouse Test (11/28/22 15:03) Influenza A And B By Pcr (11/28/22 15:03) Cefepime Injection (Maxipime Injection) (11/28/22 15:15) Arterial Blood Gas (11/28/22 16:04) Vancomycin Injection (Vancomycin Injecti (11/28/22 16:15) Vancomycin Injection (Vancomycin Injecti (11/28/22 17:15) Mrsa Screen Physician Request (11/28/22 16:07) Mrsa Nursing Screening/Treatme .admit (11/28/22 16:07) Medications Given in ED Current Medications Medications Dose Ordered Sig/Stefanie Route Start Time Stop Time Status Last Admin Dose Admin Cefepime HCl 1000 mg/Sodium Chloride 50 ml @ 100 mls/hr ONCE ONCE IV 11/28/22 15:15 11/28/22 15:44 DC 11/28/22 15:53 100 MLS/HR Vital Signs/I&O 11/28/22 14:38 Temp 37.6 Pulse 106 Resp 16 B/P (MAP) 139/74 (95) Pulse Ox 78 O2 Delivery Room Air Capillary Refill : Less Than 3 Seconds Blood Pressure Mean: 95 Progress Note : Progress Note Patient [facility]ulated [facility] to exam room 10, SPO2 on room air 78%. She was placed on oxygen at 2 L via nasal cannula. Was maintaining around 90 to 92%. Son and daughter at bedside, reports patient was presenting to [facility] for dose of Keytruda today when she was found to be hypoxic. Cancer center went ahead and obtain basic labs and imaging and suspected p neumonia. She was referred to the ER for further evaluation. She is currently on chemotherapy and Keytruda, given immunocompromise state we will go ahead and initiate sepsis work-up. Added lactic acid, PT/INR, procalcitonin, UA, COVID and influenza to work-up. Orders placed for cefepime 1 g IV. 1604: Call Dr. Herrera, patient's primary care provider and updated with current clinical condition. Requested ABG, MRSA be added to work-up as well as vancomycin. To call results of ABG and swabs. Family updated with plan to admit inpatient for IV antibiotics. They are agreeable with plan. Patient is agreeable with admission and POC. Diagnostic Imaging Diagonstic Imaging: Xray Plain Films/CT/US/NM/MRI: chest Comments [facility] [place], [place] NAME: DARIN WATERS [facility] REC#: [id number] PT STATUS: REG RCR : 1935 PHYSICIAN: OSKAR HSU MD ADMIT DATE: 11/28/22/ONC Signed Date of Exam:11/28/22 CHEST 1 VIEW, AP/PA ONLY EXAMINATION: Chest 1 view HISTORY: Shortness of breath COMPARISON: 10/09/2022 FINDINGS: Heart size and pulmonary vasculature are normal. There are patchy interstitial opacities within the mid and upper lungs, right greater than left. No significant pleural effusion or pneumothorax. A right-sided portacatheter is unchanged. The osseous structures are intact. IMPRESSION: 1. Patchy interstitial opacities within the upper lungs which is concerning for pneumonia or pulmonary edema. Dictated by: Dictated on workstation # [id number] Dict: 11/28/22 1406 Trans: 11/28/22 1432 [facility] [id number] Interpreted by: JOSE VIDAL DO Electronically signed by: JOSE VIDAL DO 11/28/22 1432 Departure Communication (Admissions) Time/Spoke to Admitting Phy: 16:04 Dr. Herrera, patient PCP. Impression Primary Impression: Bilateral pneumonia Disposition: ADMITTED INPATIENT Condition: Stable Admissions Decision to Admit Reason: Admit from ER (General) Decision to Admit/Date: Nov 28, 2022 Time/Decision to Admit Time: 16:03 Departure-Patient Inst. Referrals: JEN HERRERA DO (PCP) Primary Care Physician Copy Copies To 1: JEN HERRERA STORMY D APRN Nov 28, 2022 15:06
[2022-11-28] MEDS ORDERED: CEFEPIME INJECTION 1,000 MG in NS (IVPB) 50 ML IV ONE (15:15)
[2022-11-28 16:14] LABS: BILIRUBIN,URINE NEGATIVE (NEGATIVE); CLARITY,URINE CLEAR; COLOR,URINE YELLOW; GLUCOSE, URINE (UA) NEGATIVE (NEGATIVE); KETONES,URINE TRACE (NEGATIVE); LEUKOCYTE ESTERASE ,URINE NEGATIVE (NEGATIVE); NITRITE,URINE NEGATIVE (NEGATIVE); PH,URINE 5.5 (5-9); PROTEIN,URINE NEGATIVE (NEGATIVE)
[2022-11-28] MEDS ORDERED: VANCOMYCIN INJECTION 750 MG in NS (IVPB) 100 ML IV ONE (16:15)
[2022-11-28 16:29] LABS: INR 1.1 (0.8-1.4); PROTHROMBIN TIME PATIENT 15.1 SEC (12.2-14.7)
[2022-11-28 16:35] LABS: BACTERIA,URINE TRACE /HPF; RBC,URINE 0-2 /HPF; WBC,URINE 0-2 /HPF
[2022-11-28 16:54] LABS: ABG BASE EXCESS -1.9 MMOL/L (-2.5-2.5); ABG OXYGEN SATURATION 94 % (94-100); ABG PCO2 31 MMHG (35-45); ABG PH 7.46 (7.37-7.43); ABG PO2 64 MMHG (79-93); ABG TCO2 22.1 MMOL/L (21.0-31.0); INSPIRED O2 3 L; PATIENT TEMP 100.4; VENTILATOR NO
[2022-11-28] MEDS ORDERED: VANCOMYCIN INJECTION 500 MG in NS (IVPB) 100 ML IV ONE (17:15)
[2022-11-28] MEDS ORDERED: CALCIUM CARBONATE 500 MG (TUMS) TAB.CHEW PO PRN (18:45)
[2022-11-28] MEDS ORDERED: HYDROmorphone 2 MG/ML VIAL (DILAUDID) IV PRN (18:45)
[2022-11-28] MEDS ORDERED: MILK OF MAGNESIA 400 MG/5 ML 30 ML UDC PO PRN (18:45)
[2022-11-28] MEDS ORDERED: diphenhydrAMINE 50 MG/ML INJ (BENADRYL) IVP PRN (18:45)
[2022-11-28] MEDS ORDERED: ONDANSETRON 4 MG (ZOFRAN) ORAL DISSOLVE TAB PO PRN (18:45)
[2022-11-28] MEDS ORDERED: VANCOMYCIN INJECTION 0.1 MG in NS (IVPB) 250 ML IV SCH (18:45)
[2022-11-28] MEDS ORDERED: ANTACID SUSP 30 ML UDC (MYLANTA) PO PRN (18:45)
[2022-11-28] MEDS ORDERED: cloNIDine 0.1 MG (CATAPRES) TAB PO PRN (18:45)
[2022-11-28] MEDS ORDERED: polyethylene glycoL POWDER 17 GM (MIRALAX) PACK PO PRN (18:45)
[2022-11-28] MEDS ORDERED: diphenhydrAMINE 25 MG TAB (BENADRYL) PO PRN (18:45)
[2022-11-28] MEDS ORDERED: ONDANSETRON 4 MG/2 ML (SDV) Z0FRAN IV PRN (18:45)
[2022-11-28] MEDS ORDERED: BISACODYL 10 MG SUPP (DULCOLAX) PR PRN (18:45)
[2022-11-28] MEDS ORDERED: MELATONIN 3 MG TABLET PO PRN (18:45)
[2022-11-28 18:47] VITALS: BP 124/72
[2022-11-28] MEDS ORDERED: FE PO (18:55)
[2022-11-28 19:01] VITALS: BP 139/74
[2022-11-28] MEDS ORDERED: ENOXAPARIN 120 MG/0.8 ML (LOVENOX) ONE (19:14)
[2022-11-28] MEDS ORDERED: VANCOMYCIN 1250 MG/NS 250 ML IVPB IV NR ×2 (19:15)
[2022-11-28] MEDS ORDERED: RT-ALBUTEROL/IPRATROPIUM 3 ML (DUONEB) VIAL INH PRN (19:15)
[2022-11-28] MEDS: NS IV 1000 ML 1,000 ML IV SCH (19:47)
[2022-11-28] MEDS: RT-ALBUTEROL/IPRATROPIUM 3 ML (DUONEB) VIAL INH SCH (19:54)
[2022-11-28 19:59] VITALS: BP 123/76
--- NOTE | 2022-11-28 20:25 | History & Physical ---
History of Present Illness HPI/Chief Complaint CC; Sepsis with PNA while on chemotherapy HPI: This is a [place] [facility] of [facility] who has a h/o breast cancer undergoing treatment with Keytruda who presented to the ER from the cancer center due to weakness and hypoxia. She was found to have pneumonia on w/u and findings c/w sepsis. She is currently stable and will be moved to the 4th floor. IV abx initiated to cover for immunosuppressed status. Son and his at bed side and all questions answered. Her appetite has been decreased and we talked about that. Source: patient, family Exam Limitations: no limitations Date Seen 11/28/22 Time Seen by a Provider: 18:00 Attending Physician Viki Wiggins DO PCP Admitting Physician: Viki Wiggins DO Attending Physician: Viki Wiggins DO Referring Physician Date of Admission Nov 28, 2022 at 17:19 Home Medications & Allergies Home Medications Reviewed patient Home Medication Reconciliation performed by pharmacy medication reconciliations truck engine technician and/or nursing. Patients Allergies have been reviewed. Allergies Allergies Coded Allergies Penicillins (Verified Allergy, Unknown, EDEMA YEARS AGO, UNKNOWN IF ANY OTHER REACTION, 10/04/22) Past Grkvyeg-Hapnla-Ngfiwm Hx Past Med/Social Hx: Reviewed Nursing Past Med/Soc Hx, Reviewed and Corrections made Patient Social History Marrital Status: Employed/Student: retired Alcohol Use: Occasionally Uses Alcohol Beverage of Choice: Beer Smoking Status: Current Everyday Smoker Recent Hopitalizations: No Immunizations Up To Date Date of Pneumonia Vaccine: Oct 04, 2021 Seasonal Allergies Seasonal Allergies: No Past Medical History Surgeries: Eye Surgery, Hysterectomy Respiratory: Asthma, COPD Currently Using CPAP: No Currently Using BIPAP: No Cardiac: High Cholesterol, Hypertension, Valvular Heart Disease Reproductive: No Hysterectomy HEENT: Cataract Cancer: Skin, Breast Did You Recieve Any Treatments: No What Type of Treatment Did You: Surgical Intervention Psychosocial: Depression History of Blood Disorders: No Adverse Reaction to Blood Forman: No Family History Hypertension Review of Systems Constitutional: see HPI, dizziness, fever, malaise, weakness EENTM: no symptoms reported Respiratory: cough, dyspnea on exertion, short of breath Cardiovascular: no symptoms reported Gastrointestinal: no symptoms reported Genitourinary: no symptoms reported Musculoskeletal: back pain, joint pain Skin: no symptoms reported Psychiatric/Neurological: Anxiety All Other Systems Reviewed Negative Unless Noted: Yes Physical Exam Physical Exam Vital Signs Vital Signs - First Documented 11/28/22 11/28/22 14:38 19:01 Temp 37.6 Pulse 106 Resp 16 B/P (MAP) 139/74 (95) Pulse Ox 78 O2 Delivery Room Air FiO2 21 Capillary Refill : Less Than 3 Seconds Height, Weight, BMI Height: 5'5.00" Weight: 150lbs. 0.0oz. [id number]; 21.87 BMI Method: General Appearance: WD/WN, Anxious, Chronically ill, Mild Distress Eyes: Bilateral Eye Normal Inspection, Bilateral Eye PERRL, Bilateral Eye EOMI HEENT: PERRL/EOMI, Normal ENT Inspection, Pharynx Normal Neck: Full Range of Motion, Normal Inspection, Non Tender, Supple, Carotid Bruit Respiratory: Chest Non Tender, Lungs Clear, Normal Breath Sounds, No Accessory Muscle Use, No Respiratory Distress, Decreased Breath Sounds Cardiovascular: Regular Rate, Rhythm, No Edema, No Gallop, No JVD, No Murmur, Normal Peripheral Pulses Gastrointestinal: Normal Bowel Sounds, No Organomegaly, No Pulsatile Mass, Non Tender, Soft Back: Normal Inspection, No CVA Tenderness, No Vertebral Tenderness Extremity: Normal Capillary Refill, Normal Inspection, Normal Range of Motion, Non Tender, No Calf Tenderness, No Pedal Edema Neurologic/Psychiatric: Alert, Oriented x3, No Motor/Sensory Deficits, Normal Mood/Affect Skin: Normal Color, Warm/Dry Lymphatic: No Adenopathy Results Results/Procedures Labs Patient resulted labs reviewed. Assessment/Plan Admission Diagnosis Assessment: Sepsis Pneumonia Breast cancer with mets to abdomen Immunosuppressed on Keytruda HTN HLP Anxiety Depression Advanced age COPD Plan: IV abx broad spectrum IVF Home meds Anxiety treatment Admission Status: Inpatient Order (span 2 midnights) Reason for Inpatient Admission: sepsis Diagnosis/Problems Diagnosis/Problems (1) Sepsis (2) Bilateral pneumonia Status: Acute (3) Metastatic cancer (4) Breast cancer, right (5) Hypertension Status: Chronic (6) Hyperlipidemia Status: Chronic (7) Depression Status: Chronic (8) Anxiety (9) Insomnia Status: Chronic VIKI WIGGINS DO Nov 28, 2022 20:25
[2022-11-28] MEDS: ENOXAPARIN 40 MG/0.4 ML (LOVENOX) SYR SC SCH (20:57)
[2022-11-28] MEDS: LACTULOSE SYRUP 10GM/15ML (ENULOSE) 30ML UDC PO PRN (20:57)
[2022-11-28] MEDS: ALPRAZolam 0.5 MG (XANAX) TAB PO PRN (20:58)
[2022-11-28] MEDS: ACETAMINOPHEN 325 MG TABLET PO PRN (20:58)
[2022-11-28] MEDS ORDERED: LOSARTAN 25 MG (COZAAR) TAB PO SCH (21:00)
[2022-11-28 23:26] VITALS: BP 94/62
[2022-11-29] MEDS: SENNOSIDES 8.6 MG (SENOKOT) TAB PO SCH ×3 (01:17→20:31)
[2022-11-29] MEDS: LACTULOSE SYRUP 10GM/15ML (ENULOSE) 30ML UDC PO SCH ×2 (01:17→20:43)
[2022-11-29] MEDS: DOCUSATE SODIUM 100 MG (COLACE) CAP PO SCH ×3 (01:18→20:31)
[2022-11-29] MEDS: RT-ALBUTEROL/IPRATROPIUM 3 ML (DUONEB) VIAL INH SCH ×4 (02:05→20:46)
[2022-11-29 03:42] VITALS: BP 99/53
[2022-11-29 06:41] LABS: BASOPHILS # (AUTO) 0.1 10^3/uL (0.0-0.1); BASOPHILS % (AUTO) 1 % (0-10); EOSINOPHILS # (AUTO) 0.4 10^3/uL (0.0-0.3); EOSINOPHILS % (AUTO) 3 % (0-10); HEMATOCRIT 30 % (35-52); HEMOGLOBIN 10.4 g/dL (11.5-16.0); LYMPHOCYTES # (AUTO) 0.9 10^3/uL (1.0-4.0); LYMPHOCYTES % (AUTO) 7 % (12-44); MEAN CORPUSCULAR HEMOGLOBIN 29 pg (25-34); MEAN CORPUSCULAR HGB CONC 34 g/dL (32-36); MEAN CORPUSCULAR VOLUME 84 fL (80-99); MEAN PLATELET VOLUME 8.6 fL (9.0-12.2); MONOCYTES # (AUTO) 0.6 10^3/uL (0.0-1.0); MONOCYTES % (AUTO) 4 % (0-12); NEUTROPHILS # (AUTO) 10.8 10^3/uL (1.8-7.8); NEUTROPHILS % (AUTO) 83 % (42-75); PLATELET COUNT 402 10^3/uL (130-400)
[2022-11-29 07:06] LABS: ALBUMIN 3.4 GM/DL (3.2-4.5); ANISOCYTOSIS SLIGHT; BAND NEUTROPHILS 2 %; BILIRUBIN,TOTAL 0.6 MG/DL (0.1-1.0); BURR CELLS SLIGHT; CALCIUM 8.5 MG/DL (8.5-10.1); CREATININE SERUM 0.65 MG/DL (0.60-1.30); EOSINOPHILS % (MANUAL) 3 %; LYMPHOCYTES % (MANUAL) 10 %; MONOCYTES % (MANUAL) 2 %; NEUTROPHILS % (MANUAL) 83 %; POTASSIUM 3.1 MMOL/L (3.6-5.0)
[2022-11-29 07:07] LABS: ACANTHOCYTES MODERATE
[2022-11-29 07:50] VITALS: BP 118/75
[2022-11-29] MEDS: MULTIVIT W/MINERALS TAB (THERAGRAN M) PO SCH (09:16)
[2022-11-29] MEDS: ANASTROZOLE 1 MG TAB (ARIMIDEX) PO SCH (09:17)
[2022-11-29] MEDS: amLODIPine 5 MG (NORVASC) TAB PO SCH (09:17)
[2022-11-29] MEDS: NS IV 1000 ML 1,000 ML IV SCH (10:01)
--- NOTE | 2022-11-29 10:02 | Physical Therapy Evaluation ---
PT Evaluation-General Medical Diagnosis Admission Date Nov 28, 2022 at 17:19 Medical Diagnosis: bilateral pneumonia Onset Date: Nov 28, 2022 Therapy Diagnosis Therapy Diagnosis: debility/weakness Height/Weight Height (Feet): 5 Height (Inches): 5.00 Weight (Pounds): 150 Weight (Ounces): 0.0 Precautions Precautions/Isolations: Standard Precautions Referral Physician: Feliciano Reason for Referral: Evaluation/Treatment Medical History Pertinent Medical History: COPD, HTN, Smoking Additional Medical History metastatic breast cancer per family report Current History ambulated to ER from cancer center after receiving chemo due to hypoxia Reviewed History: Yes Social History Home: Single Level Current Living Status: Alone Entry Into Home: Stairs With Railing PT Steps Into Home: 1 Prior Prior Level of Function SCALE: Activities may be completed with or without assistive devices. 1-Czdabiexno-bkbxpjc completes the activity by him/herself with no assistance from a helper. 5-Set-up or Clean-up Assistance-helper sets up or cleans up; patient completes activity. [place] assists only prior to or following the activity. 4-Supervision or Touching Assistance-helper provides verbal cues and/or touching/steadying and/or contact guard assistance as patient completes activity. Assistance may be provided throughout the activity or intermittently. 3-Partial/Moderate Assistance-helper does LESS THAN HALF the effort. [place] lifts, holds or supports trunk or limbs, but provides less than half the effort. 2-Substantial/Maximal Assistance-helper does MORE THAN HALF the effort. [place] lifts or holds trunk or limbs and provides more than half the effort. 6-Zgtvyrfnt-anmfdr does ALL the effort. Patient does none of the effort to complete the activity. Or, the assistance of 2 or more helpers is required for the patient to complete the activity. If activity was not attempted, code reason: 7-Patient Refused. 9-Not Applicable-not attempted and the patient did not perform the activity before the current illness, exacerbation or injury. 10-Not Attempted due to Environmental Limitations-(lack of equipment, weather restraints, etc.). 88-Not Attempted due to Medical Conditions or Safety Concerns. Bed Mobility: 6 Transfers (B,C,W/C): 6 Gait: 6 Stairs: 6 Indoor Mobility (Ambulation): Independent Stairs: Independent Prior Devices Use: None PT Evaluation-Current Subjective Patient agrees to PT. FAmily present Objective Patient Orientation: Normal For Age Attachments: Central Line, Oxygen (3L) ROM/Strength ROM Lower Extremities bilateral LE WFL Strength Lower Extremities 4/5 grossly bilateral LE all planes Integumentary/Posture Integumentary refer to nursing notes Bowel Incontinence: No Bladder Incontinence: No Posture WFL Neuromuscular (Tone, Coordination, Reflexes) grossly intact Sensory Vision: Wears Glasses Hearing: Functional Transfers Lying to Sitting/Side of Bed(Q: 6 Sit to Stand (QC): 4 Chair/Lvl-uu-Anwhg Xfer(QC): 4 Toilet Transfer (QC): 4 SBA with upright mobility Gait Does the Patient Walk?: Yes Mode of Locomotion: Walk Anticipated Mode of Locomotion: Walk Walk 10 feet (QC): 4 Walk 50 ft with 2 Turns(QC): 4 Walk 150 ft (QC): 4 Distance: 275' Gait Assistive Device: FWW Comments/Gait Description safe and functional with FWW/patient ambulated to restroom without AD with noted unsteady gait sequence (corrected with FWW) Balance Sitting Static: Normal Sitting Dynamic: Normal Standing Static: Normal Standing Dynamic: Normal Assessment/Needs Patient will be seen short term by skilled PT to address functional strength and mobility to improve current LOF to safely return to home at maximum LOF. Rehab Potential: Fair PT Skilled Nursing Goals Monitoring Analyst Goals PT Skilled Nursing Goals Time Frame: Dec 08, 2022 Roll Left & Right (QC): 6 Sit to Lying (QC): 6 Lying-Sitting on Side/Bed(QC): 6 Sit to Stand (QC): 6 Chair/Duc-la-Ffhzo Xfer(QC): 6 Toilet Transfer (QC): 6 Walk 10 feet (QC): 6 Walk 50ft with 2 Turns (QC): 6 Walk 150 ft (QC): 6 PT Plan Problem List Problem List: Activity Tolerance, Functional Strength, Safety, Balance, Gait, Transfer, Bed Mobility Treatment/Plan Treatment Plan: Continue Plan of Care Treatment Plan: Bed Mobility, Education, Functional Activity Laura, Functional Strength, Gait, Safety, Therapeutic Exercise, Transfers Treatment Duration: Dec 08, 2022 Frequency: 6 times per week Estimated Hrs Per Day: .25 hour per day Patient and/or Family Agrees t: Yes Time Time In: 920 Time Out: 937 DATE: Nov 29, 2022 Total Billed Treatment Time: 17 Total Billed Treatment 1 visit EVModC 17 min NORBERT CLOUD PT Nov 29, 2022 10:02
[2022-11-29] MEDS ORDERED: VIT-10 PO (10:48)
[2022-11-29] MEDS ORDERED: CHOL20002 PO (10:48)
[2022-11-29] MEDS ORDERED: MULT-1136 PO (10:48)
[2022-11-29] MEDS ORDERED: DOCU-26 PO (10:48)
[2022-11-29] MEDS ORDERED: FERR-74 PO (10:48)
[2022-11-29 11:22] VITALS: BP 113/69
[2022-11-29] MEDS: KCL 20 MEQ TAB (K-DUR) PO SCH ×2 (12:10→20:30)
[2022-11-29] MEDS: FERROUS SULF 325 MG (IRON) TAB PO SCH (13:18)
--- NOTE | 2022-11-29 13:33 | Progress Note ---
CORAL PURDY 11/29/22 1333: Subjective Date Seen by a Provider: Nov 29, 2022 Subjective/Events-last exam 87 yo F with metastatic cancer and COPD amongst other chronic health conditions admitted for bilateral pneumonia and sepsis after a visit to the ER for hypoxia, weakness and SOB. Today she feels overall improved and less weak then yesterday. She continues to have some SOB with exertion, an intermittent productive cough and mild chills. She denies dizziness and body aches. Review of Systems General: Chills, Fatigue, Appetite (decreased) Pulmonary: Cough (productive, intermittent) Focused Exam Lactate Level 11/28/22 15:15: Lactic Acid Level 1.15 Objective Exam Last Set of Vital Signs Vital Signs Date Time Temp Pulse Resp B/P (MAP) Pulse Ox O2 Delivery O2 Flow Rate FiO2 11/29/22 13:00 106 11/29/22 11:22 37.3 18 113/69 (84) 91 Nasal Cannula 11/29/22 09:45 3.00 11/28/22 19:01 21 Capillary Refill : Less Than 3 Seconds I&O Intake and Output 11/29/22 00:00 Intake Total 100 ml Output Total 0 ml Balance 100 ml Intake Oral 100 ml Output Urine Total 0 ml General: Alert, Oriented X3 Lungs: Clear to Auscultation Heart: Regular Rate Abdomen: Normal Bowel Sounds, No Tenderness Psych/Mental Status: Mental Status NL Results Lab Laboratory Tests 11/28/22 15:15: Lactic Acid Level 1.15 11/28/22 15:35: Prothrombin Time 15.1H, INR Comment 1.1, Activated Partial Thromboplast Time 31, Procalcitonin 0.15H 11/28/22 15:43: Urine Color YELLOW, Urine Clarity CLEAR, Urine pH 5.5, Urine Specific [place] >=1.030, Urine Protein NEGATIVE, Urine Glucose (UA) NEGATIVE, Urine Ketones TRACEH, Urine Nitrite NEGATIVE, Urine Bilirubin NEGATIVE, Urine Urobilinogen 0.2, Urine Leukocyte Esterase NEGATIVE, Urine RBC (Auto) NEGATIVE, Urine RBC 0- 2, Urine WBC 0-2, Urine Squamous Epithelial Cells NONE, Urine Crystals NONE, Urine Bacteria TRACE, Urine Casts NONE, Urine Mucus SMALLH, Urine Culture Indicated CULTURE PENDING 11/28/22 15:47: Influenza Type A (RT-PCR) Not Detected, Influenza Type B (RT-PCR) Not Detected, SARS-CoV-2 RNA (RT-PCR) Not Detected 11/28/22 16:45: Blood Gas Puncture Site R RADIAL, Blood Gas Patient Temperature 100.4, Arterial Blood pH 7.46H, Arterial Blood Partial Pressure CO2 31L, Arterial Blood Partial Pressure O2 64L, Arterial Blood HCO3 21L, Arterial Blood Total CO2 22.1, Arterial Blood Oxygen Saturation 94, Arterial Blood Base Excess -1.9, Leopoldo Test NA, Blood Gas Ventilator Setting NO, Blood Gas Inspired Oxygen 3 L 11/29/22 06:34: White Blood Count 13.0H, Red Blood Count 3.59L, Hemoglobin 10.4L, Hematocrit 30L , Mean Corpuscular Volume 84, Mean Corpuscular Hemoglobin 29, Mean Corpuscular Hemoglobin Concent 34, Red Cell Distribution Width 16.8H, Platelet Count 402H, Mean Platelet Volume 8.6L, Immature Granulocyte % (Auto) 2, Neutrophils (%) (Auto) 83H, Lymphocytes (%) (Auto) 7L, Monocytes (%) (Auto) 4, Eosinophils (%) (Auto) 3, Basophils (%) (Auto) 1, Neutrophils # (Auto) 10.8H, Lymphocytes # (Auto) 0.9L, Monocytes # (Auto) 0.6, Eosinophils # (Auto) 0.4H, Basophils # (Auto) 0.1, Immature Granulocyte # (Auto) 0.2H, Neutrophils % (Manual) 83, Lymphocytes % (Manual) 10, Monocytes % (Manual) 2, Eosinophils % (Manual) 3, Band Neutrophils 2, Kojo Rods , Anisocytosis SLIGHT, Carolyn Cells SLIGHT, Acanthocytes MODERATE, Sodium Level 131L, Potassium Level 3.1L, Chloride Level 98, Carbon Dioxide Level 22, Anion Gap 11, Blood Urea Nitrogen 8, Creatinine 0.65, Estimat Glomerular Filtration Rate 84, BUN/Creatinine Ratio 12, Glucose Level 78, Calcium Level 8.5, Corrected Calcium 9.0, Total Bilirubin 0.6, Aspartate Amino Transf (AST/SGOT) 29, Alanine Aminotransferase (ALT/SGPT) 21, Alkaline Phosphatase 75, Total Protein 6.0L, Albumin 3.4 Assessment/Plan Assessment/Plan Assess & Plan/Chief Complaint Bilateral pneumonia Sepsis - Vancomycin - Cefepime Hypokalemia - KCl Hyponatremia - NaCl Anemia - ferrous sulfate COPD - albuterol-ipratropium Breast cancer with metastasis to the abdomen Immunosuppression - on Ketryuda before admission - oxycodone - ondansetron Anemia - ferrous sulfate VIKI HERRERA DO 11/30/22 0453: Subjective Time Seen by a Provider: 11:00 Supervisory-Addendum Brief Verification & Attestation Participated in pt care: history, MDM, physical Personally performed: exam, history, MDM, supervision of care Care discussed with: Medical Student Procedures: n/a Results interpretation: Verified all documentation Verification and Attestation of Medical Student E/M Service A medical student performed and documented this service in my presence. I reviewed and verified all information documented by the medical student and made modifications to such information, when appropriate. I personally performed the physical exam and medical decision making. Viki Herrera, Nov 30, 2022,04:53 CORAL PURDY Nov 29, 2022 13:33 VIKI HERRERA DO Nov 30, 2022 04:53
--- NOTE | 2022-11-29 14:05 | Occ Therapy Progress Note ---
Therapy Progress Note OT orders received and chart reviewed. OT evaluation attempted at 1300, pt laying in bed stating she is wanting to nap and this is the time she typically naps at home. OT informed pt about purpose and benefit of OT, but she continued to decline OT evaluation at this time, requesting therapist to return tomorrow. OT will attempt evaluation/tx tomorrow. 1, refusal ANTHONY VALDEZ OT Nov 29, 2022 14:05
[2022-11-29 16:00] VITALS: BP 116/60
[2022-11-29] MEDS: LOSARTAN 25 MG (COZAAR) TAB PO SCH (17:33)
[2022-11-29] MEDS: VANCOMYCIN 1 GM/NS 250 ML IVPB IV SCH ×2 (18:26)
[2022-11-29 19:38] VITALS: BP_SYST 102; BP_SYST 138; BP_DIAS 53; BP_DIAS 66
[2022-11-29] MEDS: ENOXAPARIN 40 MG/0.4 ML (LOVENOX) SYR SC SCH (20:30)
[2022-11-29] MEDS: CEFEPIME INJECTION 1,000 MG in NS (IVPB) 50 ML IV SCH (20:30)
[2022-11-29] MEDS: ACETAMINOPHEN 325 MG TABLET PO PRN (20:38)
[2022-11-30] VITALS (8 sets, daily range): BP systolic 96–111; BP diastolic 54–60
[2022-11-30] MEDS: CEFEPIME INJECTION 1,000 MG in NS (IVPB) 50 ML IV SCH ×3 (03:59→19:19)
[2022-11-30] MEDS: RT-ALBUTEROL/IPRATROPIUM 3 ML (DUONEB) VIAL INH SCH ×4 (04:14→20:36)
[2022-11-30 05:12] LABS: BASOPHILS # (AUTO) 0.1 10^3/uL (0.0-0.1); BASOPHILS % (AUTO) 1 % (0-10); EOSINOPHILS # (AUTO) 0.3 10^3/uL (0.0-0.3); EOSINOPHILS % (AUTO) 2 % (0-10); HEMATOCRIT 24 % (35-52); HEMOGLOBIN 8.3 g/dL (11.5-16.0); LYMPHOCYTES # (AUTO) 0.9 10^3/uL (1.0-4.0); LYMPHOCYTES % (AUTO) 7 % (12-44); MEAN CORPUSCULAR HEMOGLOBIN 29 pg (25-34); MEAN CORPUSCULAR HGB CONC 35 g/dL (32-36); MEAN CORPUSCULAR VOLUME 83 fL (80-99); MEAN PLATELET VOLUME 8.4 fL (9.0-12.2); MONOCYTES # (AUTO) 0.6 10^3/uL (0.0-1.0); MONOCYTES % (AUTO) 4 % (0-12); NEUTROPHILS # (AUTO) 10.8 10^3/uL (1.8-7.8); NEUTROPHILS % (AUTO) 84 % (42-75); PLATELET COUNT 350 10^3/uL (130-400); WHITE BLOOD COUNT 12.8 10^3/uL (4.3-11.0)
[2022-11-30 05:35] LABS: ALBUMIN 2.7 GM/DL (3.2-4.5); BILIRUBIN,TOTAL 0.6 MG/DL (0.1-1.0); CALCIUM 7.9 MG/DL (8.5-10.1); CREATININE SERUM 0.61 MG/DL (0.60-1.30); POTASSIUM 3.6 MMOL/L (3.6-5.0); TOTAL PROTEIN 4.8 GM/DL (6.4-8.2)
--- NOTE | 2022-11-30 08:22 | Occupational Therapy Eval ---
OT Evaluation-General/PLF Medical Diagnosis Admission Date Nov 28, 2022 at 17:19 Medical Diagnosis: bilateral pneumonia Onset Date: Nov 28, 2022 Therapy Diagnosis Therapy Diagnosis: Decreased ability to perform ADLS AL, decreased activty tolerance, 02 use Height/Weight Height (Feet): 5 Height (Inches): 5.00 Weight (Pounds): 150 Weight (Ounces): 0.0 Precautions Precautions/Isolations: Fall Prevention, Standard Precautions Weight Bear Status Weight Bearing Restriction: Weight Bearing/Tolerated Location Restriction: LE Bilateral Referral Physician: Feliciano Referral Reason: Evaluation/Treatment Medical History Pertinent Medical History: COPD, HTN, Smoking Additional Medical History HX breast CA, asthma, COPD, HTN, VHD, skin CA, depression Current History Ambulated from [facility] to ED w/ hypoxia, found ot have PNA on w/u and fi ndings consistent with sepsis Social History Home: Single Level Current Living Status: Alone Entry Into Home: Stairs With Railing Steps Into Home: 1 ADL-Prior Level of Function SCALE: Activities may be completed with or without assistive devices. 0-Upwmxggxxx-adtnzyd completes the activity by him/herself with no assistance from a helper. 5-Set-up or Clean-up Assistance-helper sets up or cleans up; patient completes activity. [place] assists only prior to or following the activity. 4-Supervision or Touching Assistance-helper provides verbal cues and/or touching/steadying and/or contact guard assistance as patient completes activity. Assistance may be provided throughout the activity or intermittently. 3-Partial/Moderate Assistance-helper does LESS THAN HALF the effort. [place] lifts, holds or supports trunk or limbs, but provides less than half the effort. 2-Substantial/Maximal Assistance-helper does MORE THAN HALF the effort. [place] lifts or holds trunk or limbs and provides more than half the effort. 1-Hsdielpmx-nsnmjd does ALL the effort. Patient does none of the effort to complete the activity. Or, the assistance of 2 or more helpers is required for the patient to complete the activity. If activity was not attempted, code reason: 7-Patient Refused. 9-Not Applicable-not attempted and the patient did not perform the activity before the current illness, exacerbation or injury. 10-Not Attempted due to Environmental Limitations-(lack of equipment, weather restraints, etc.). 88-Not Attempted due to Medical Conditions or Safety Concerns. ADL PLOF Comments PT reports independent w/ I/ADLS, driving and functional mobility w/ no ADs Self Care: Independent Functional Cognition: Independent Drive Self: Yes OT Current Status Subjective Laying supine in bed awake with eyes open Mental Status/Objective Patient Orientation: Person, Place, Time, Situation Attachments: Oxygen (5L), SCD's, Telemetry Current Glasses/Contacts: Yes Hearing Aids: No (hard of hearing) Upper Extremity ROM WFLS Upper Extremity Coordination WFLS Upper Extremity Sensation WFLS Upper Extremity Strength B UE grossly -4/5 ADL-Treatment Eating (QC): 6 Oral Hygiene (QC): 5 Upper Body Dressing (QC): 4 Lower Body Dressing (QC): 4 On/Off Footwear (QC): 5 Toileting Hygiene (QC): 4 Requires CGA and education for / safety Other Treatments Bed mobility Mod I, SBA for ambulation to bathroom w/ and FWW OT assisted for tube management. Pt remained in recliner with blanket and visitors, call keo chase, no further needs Education OT Patient Education: Energy conservation, Modified ADL techniques, Progress toward Goal/Update tx plan, Purpose of tx/functional activities, Reviewed precautions, Rehab process, Safety issues, Transfer techniques, Use of adapted equipment Teaching Recipient: Patient, Family Teaching Methods: Demonstration, Discussion Response to Teaching: Verbalize Understanding, Return Demonstration, Reinforcement Needed OT Assignment Desk Assistant Goals Mcfp Goals Time Frame: Dec 07, 2022 Eating (QC): 6 Oral Hygiene (QC): 6 Toileting Hygiene (QC): 6 Shower/Bathe Self (QC): 4 Upper Body Dressing (QC): 6 Lower Body Dressing (QC): 6 On/Off Footwear (QC): 6 Additional Goals: 1-Demonstrate ADL Tasks, 2-Verbalize Understanding, 3- ImproveStrength/Laura 1=Demonstrate adherence to instructed precautions during ADL tasks. 2=Patient will verbalize/demonstrate understanding of assistive devices/modifications for ADL. 3=Patient will improve strength/tolerance for activity to enable patient to perform ADL's. OT Education/Plan Problem List/Assessment Assessment: Decreased Activ Tolerance, Decreased Safety Aware, Decreased UE Strength, Impaired I ADL's, Impaired Self-Care Skills Discharge Recommendations Plan/Recommendations: Continue POC Therapy Discharge Recommendati: Post Acute OT (HH) Treatment Plan/Plan of Care Treatment,Training & Education: Yes Patient would benefit from OT for education, treatment and training to promote independence in ADL's, mobility, safety and/or upper extremity function for ADL's. Plan of Care: ADL Retraining, Functional Mobility, UE Funct Exercise/Act Treatment Duration: Dec 07, 2022 Frequency: 3 times per week (3-5 times /week) Estimated Hrs Per Day: .25 hour per day Agreement: Yes Rehab Potential: Good Time Start Time: 07:50 Stop Time: 08:11 DATE: Nov 30, 2022 Total Time Billed (hr/min): 21 Billed Treatment Time 1, WINDY PROCTOR OT Nov 30, 2022 08:22
[2022-11-30] MEDS: DOCUSATE SODIUM 100 MG (COLACE) CAP PO SCH ×2 (08:43→21:25)
[2022-11-30] MEDS: SENNOSIDES 8.6 MG (SENOKOT) TAB PO SCH ×2 (08:44→21:25)
[2022-11-30] MEDS: MULTIVIT W/MINERALS TAB (THERAGRAN M) PO SCH (08:45)
[2022-11-30] MEDS: amLODIPine 5 MG (NORVASC) TAB PO SCH (08:45)
[2022-11-30] MEDS: KCL 20 MEQ TAB (K-DUR) PO SCH ×2 (08:45→19:45)
[2022-11-30] MEDS: ANASTROZOLE 1 MG TAB (ARIMIDEX) PO SCH (08:45)
--- NOTE | 2022-11-30 11:04 | Physical Therapy Daily Note ---
PT Daily Note-Current Subjective Patient agrees to PT. Family present. Pain Section J - Health Conditions 1. Rarely or not at all 2. Occasionally 3. Frequently 4. Almost constantly 8. Unable to answer Pain Effect on Sleep: 1 Pain Interference with Therapy: 1 Pain Interference w/Day-to-Day: 1 Mental Status Patient Orientation: Normal For Age Attachments: Oxygen (5L HF) Transfers SCALE: Activities may be completed with or without assistive devices. 3-Tykgjbqgkn-fimqwoo completes the activity by him/herself with no assistance from a helper. 5-Set-up or Clean-up Assistance-helper sets up or cleans up; patient completes activity. [place] assists only prior to or following the activity. 4-Supervision or Touching Assistance-helper provides verbal cues and/or touching/steadying and/or contact guard assistance as patient completes activity. Assistance may be provided throughout the activity or intermittently. 3-Partial/Moderate Assistance-helper does LESS THAN HALF the effort. [place] lifts, holds or supports trunk or limbs, but provides less than half the effort. 2-Substantial/Maximal Assistance-helper does MORE THAN HALF the effort. [place] lifts or holds trunk or limbs and provides more than half the effort. 3-Nxuaccplu-nfqpbk does ALL the effort. Patient does none of the effort to complete the activity. Or, the assistance of 2 or more helpers is required for the patient to complete the activity. If activity was not attempted, code reason: 7-Patient Refused. 9-Not Applicable-not attempted and the patient did not perform the activity before the current illness, exacerbation or injury. 10-Not Attempted due to Environmental Limitations-(lack of equipment, weather restraints, etc.). 88-Not Attempted due to Medical Conditions or Safety Concerns. Sit to Stand (QC): 5 Gait Training Distance: 350' Walk 10 feet (QC): 5 Walk 50 ft with 2 Turns(QC): 5 Walk 150 ft (QC): 5 Gait Assistive Device: FWW safe and functional with no deviation Assessment Patient's SAO2 decreased to 87% on 6L HF NC with activity with quick recovery to 95%. RN notified. PT to continue to address pulmonary function with functional mobility. PT Shale Planer Operator Helper Goals Long-Term Goals PT Shale Planer Operator Helper Goals Time Frame: Dec 08, 2022 Roll Left & Right (QC): 6 Sit to Lying (QC): 6 Lying-Sitting on Side/Bed(QC): 6 Sit to Stand (QC): 6 Chair/Jfh-ww-Rxonw Xfer(QC): 6 Toilet Transfer (QC): 6 Walk 10 feet (QC): 6 Walk 50ft with 2 Turns (QC): 6 Walk 150 ft (QC): 6 PT Plan Treatment/Plan Treatment Plan: Continue Plan of Care Treatment Plan: Bed Mobility, Education, Functional Activity Laura, Functional Strength, Gait, Safety, Therapeutic Exercise, Transfers Treatment Duration: Dec 08, 2022 Frequency: 6 times per week Estimated Hrs Per Day: .25 hour per day Patient and/or Family Agrees t: Yes Time Time In: 1007 Time Out: 1026 DATE: Nov 30, 2022 Total Billed Treatment Time: 19 Total Billed Treatment 1 visit FA 19 min NORBERT CLOUD PT Nov 30, 2022 11:04
[2022-11-30] MEDS ORDERED: SODIUM CHLORIDE 1 GM TABLET PO NR (12:00)
[2022-11-30] MEDS: FERROUS SULF 325 MG (IRON) TAB PO SCH (12:23)
--- NOTE | 2022-11-30 17:05 | Progress Note ---
CORAL PURDY 11/30/22 1705: Subjective Date Seen by a Provider: Nov 30, 2022 Subjective/Events-last exam 87 yo F with metastatic cancer and COPD amongst other chronic health conditions admitted 11/28 for bilateral pneumonia with sepsis after an ER visit for hypoxia and SOB. She is wearing many layers; she says this is cause she is always "slightly cold" at baseline and unrelated to chills or illness. She continues to have an intermittent productive cough in the morning while supine and SOB with exertion. She is otherwise comfortable and denies dizziness, confusion or pain. Focused Exam Lactate Level 11/28/22 15:15: Lactic Acid Level 1.15 Objective Exam Last Set of Vital Signs Vital Signs Date Time Temp Pulse Resp B/P (MAP) Pulse Ox O2 Delivery O2 Flow Rate FiO2 11/30/22 16:35 38.0 100 19 110/57 (74) 91 High Flow N/C 6.00 11/28/22 19:01 21 Capillary Refill : Less Than 3 Seconds I&O Intake and Output 11/30/22 00:00 Intake Total 580 ml Output Total 925 ml Balance -345 ml Intake Oral 530 ml IV Total 50 ml Output Urine Total 925 ml # Voids 3 General: Alert, Oriented X3 Lungs: Clear to Auscultation, Other (cough on inspiration) Heart: Regular Rate Abdomen: Normal Bowel Sounds, No Tenderness Psych/Mental Status: Mental Status NL, Mood NL Results Lab Laboratory Tests 11/30/22 05:00: White Blood Count 12.8H, Red Blood Count 2.87L, Hemoglobin 8.3#L, Hematocrit 24L , Mean Corpuscular Volume 83, Mean Corpuscular Hemoglobin 29, Mean Corpuscular Hemoglobin Concent 35, Red Cell Distribution Width 16.9H, Platelet Count 350, Mean Platelet Volume 8.4L, Immature Granulocyte % (Auto) 1, Neutrophils (%) (Auto) 84H, Lymphocytes (%) (Auto) 7L, Monocytes (%) (Auto) 4, Eosinophils (%) (Auto) 2, Basophils (%) (Auto) 1, Neutrophils # (Auto) 10.8H, Lymphocytes # (Auto) 0.9L, Monocytes # (Auto) 0.6, Eosinophils # (Auto) 0.3, Basophils # (Auto) 0.1, Immature Granulocyte # (Auto) 0.2H, Sodium Level 127L, Potassium Level 3.6, Chloride Level 98, Carbon Dioxide Level 21, Anion Gap 8, Blood Urea Nitrogen 11, Creatinine 0.61, Estimat Glomerular Filtration Rate 85, BUN/Creatinine Ratio 18, Glucose Level 94, Calcium Level 7.9L, Corrected Calcium 8.9, Total Bilirubin 0.6, Aspartate Amino Transf (AST/SGOT) 30, Alanine Aminotransferase (ALT/SGPT) 17, Alkaline Phosphatase 56, Total Protein 4.8L, Albumin 2.7L Microbiology 11/28/22 Urine Culture - Final, Complete NO GROWTH 11/28/22 Blood Culture - Preliminary, Resulted No growth Assessment/Plan Assessment/Plan Assess & Plan/Chief Complaint Bilateral pneumonia / Sepsis - Vancomycin - Cefepime Hypokaelmia / Hyponatremia / Hypocalcemia - likely related to chemotherapy and fluids Hypokalemia * resolved with KCl Hyponatremia * fluids restricted to 1200 ml * NaCl salt replacement tablets PO Hypocalcemia * monitor Anemia - Hb 8.3 down from 10.4 11/29 - ferrous sulfate COPD - albuterol-ipratropium - 4 L of 02 nasal canula 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 I reviewed and verified all information documented by the medical student and made modifications to such information, when appropriate. I personally performed the physical exam and medical decision making. Viki Herrera Nov 30, 2022,22:39 CORAL PURDY Nov 30, 2022 17:05 VIKI HERRERA DO Nov 30, 2022 22:39
[2022-11-30] MEDS: LOSARTAN 25 MG (COZAAR) TAB PO SCH (17:54)
[2022-11-30] MEDS: VANCOMYCIN 1 GM/NS 250 ML IVPB IV SCH ×2 (17:54)
[2022-11-30] MEDS: ENOXAPARIN 40 MG/0.4 ML (LOVENOX) SYR SC SCH (19:19)
[2022-11-30] MEDS: SODIUM CHLORIDE 1 GM TABLET PO SCH (19:44)
[2022-11-30] MEDS: ALPRAZolam 0.5 MG (XANAX) TAB PO PRN (19:44)
[2022-11-30] MEDS: LACTULOSE SYRUP 10GM/15ML (ENULOSE) 30ML UDC PO SCH (21:25)
[2022-12-01] VITALS (7 sets, daily range): BP systolic 102–114; BP diastolic 57–94
[2022-12-01] MEDS: CEFEPIME INJECTION 1,000 MG in NS (IVPB) 50 ML IV SCH ×3 (04:26→19:16)
[2022-12-01 04:50] LABS: BASOPHILS # (AUTO) 0.1 10^3/uL (0.0-0.1); BASOPHILS % (AUTO) 1 % (0-10); EOSINOPHILS # (AUTO) 0.2 10^3/uL (0.0-0.3); EOSINOPHILS % (AUTO) 1 % (0-10); HEMATOCRIT 23 % (35-52); HEMOGLOBIN 7.8 g/dL (11.5-16.0); LYMPHOCYTES % (AUTO) 8 % (12-44); MEAN CORPUSCULAR HEMOGLOBIN 28 pg (25-34); MEAN CORPUSCULAR HGB CONC 34 g/dL (32-36); MEAN CORPUSCULAR VOLUME 83 fL (80-99); MEAN PLATELET VOLUME 8.8 fL (9.0-12.2); MONOCYTES # (AUTO) 0.5 10^3/uL (0.0-1.0); MONOCYTES % (AUTO) 4 % (0-12); NEUTROPHILS # (AUTO) 10.8 10^3/uL (1.8-7.8); NEUTROPHILS % (AUTO) 85 % (42-75); PLATELET COUNT 404 10^3/uL (130-400); WHITE BLOOD COUNT 12.7 10^3/uL (4.3-11.0)
[2022-12-01 05:12] LABS: ALBUMIN 2.7 GM/DL (3.2-4.5); BILIRUBIN,TOTAL 0.6 MG/DL (0.1-1.0); CREATININE SERUM 0.59 MG/DL (0.60-1.30); TOTAL PROTEIN 4.7 GM/DL (6.4-8.2)
[2022-12-01] MEDS: ANASTROZOLE 1 MG TAB (ARIMIDEX) PO SCH (09:40)
[2022-12-01] MEDS: KCL 20 MEQ TAB (K-DUR) PO SCH ×2 (09:41→19:16)
[2022-12-01] MEDS: SODIUM CHLORIDE 1 GM TABLET PO SCH ×2 (09:41→19:16)
[2022-12-01] MEDS: MULTIVIT W/MINERALS TAB (THERAGRAN M) PO SCH (09:41)
[2022-12-01] MEDS: DOCUSATE SODIUM 100 MG (COLACE) CAP PO SCH ×2 (09:42→19:16)
[2022-12-01] MEDS: SENNOSIDES 8.6 MG (SENOKOT) TAB PO SCH ×2 (09:42→19:17)
[2022-12-01] MEDS: amLODIPine 5 MG (NORVASC) TAB PO SCH (10:09)
[2022-12-01] MEDS: RT-ALBUTEROL/IPRATROPIUM 3 ML (DUONEB) VIAL INH SCH ×3 (10:19→19:51)
--- NOTE | 2022-12-01 12:07 | Progress Note - Hospitalist ---
Subjective HPI/CC On Admission Date Seen by Provider: Dec 01, 2022 Time Seen by Provider: 12:04 CC; Sepsis with PNA while on chemotherapy HPI: This is a half-way clinic patient of mine who has a h/o breast cancer undergoing treatment with Keytruda who presented to the ER from the cancer center due to weakness and hypoxia. She was found to have pneumonia on w/u and findings c/w sepsis. She is currently stable and will be moved to the 4th floor. IV abx initiated to cover for immunosuppressed status. Son and his at bedside and all questions answered. Her appetite has been decreased and we talked about that. Subjective/Events-last exam Patient denies shortness of breath at rest does note fatigue with minimal exertion but overall feels each day she has been doing better. She coughed up a small amount of reportedly clear sputum today. She denies night sweats chills or fever. She has had no melena or bright red blood per rectum or abdominal pain. Focused Exam Lactate Level 11/28/22 15:15: Lactic Acid Level 1.15 Objective Exam Vital Signs Vital Signs Date Time Temp Pulse Resp B/P (MAP) Pulse Ox O2 Delivery O2 Flow Rate FiO2 12/01/22 11:50 36.6 90 18 105/60 (75) 92 High Flow N/C 5.00 11/28/22 19:01 21 Capillary Refill : Less Than 3 Seconds General Appearance: No Apparent Distress Respiratory: No Accessory Muscle Use, No Respiratory Distress, Other (Bilateral upper lobe vesicular breath sounds a little worse on the right side with no wheezing no rhonchi.) Cardiovascular: Regular Rate, Rhythm, No Edema, No Gallop, No JVD, No Murmur, Normal Peripheral Pulses Results/Procedures Lab Laboratory Tests 12/01/22 04:30 Patient resulted labs reviewed. Assessment/Plan Assessment and Plan Assess & Plan/Chief Complaint Bilateral pneumonia / Sepsis - Vancomycin - Cefepime 12/01: Presumed pneumonia patient improving sepsis resolved continue IV antibiotics consider discharge the beginning of the week. Patient does likely have anemia of chronic disease as well as chemotherapy related while her counts of been trending lower we will continue to monitor as she is hemodynamically stable with no evidence for bleeding. 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
[2022-12-01] MEDS ORDERED: NS (IVPB) 50 ML ONE (12:15)
[2022-12-01] MEDS: FERROUS SULF 325 MG (IRON) TAB PO SCH (12:21)
--- NOTE | 2022-12-01 13:33 | Physical Therapy Daily Note ---
PT Daily Note-Current Subjective Pt is in the chair and agreeable to treatment. Pain Section J - Health Conditions 1. Rarely or not at all 2. Occasionally 3. Frequently 4. Almost constantly 8. Unable to answer Pain Effect on Sleep: 1 Pain Interference with Therapy: 1 Pain Interference w/Day-to-Day: 1 Mental Status Patient Orientation: Person, Place, Time, Situation Transfers SCALE: Activities may be completed with or without assistive devices. 6-Dolflpwguo-pcwcsqb completes the activity by him/herself with no assistance from a helper. 5-Set-up or Clean-up Assistance-helper sets up or cleans up; patient completes activity. [place] assists only prior to or following the activity. 4-Supervision or Touching Assistance-helper provides verbal cues and/or touching/steadying and/or contact guard assistance as patient completes activity. Assistance may be provided throughout the activity or intermittently. 3-Partial/Moderate Assistance-helper does LESS THAN HALF the effort. [place] lifts, holds or supports trunk or limbs, but provides less than half the effort. 2-Substantial/Maximal Assistance-helper does MORE THAN HALF the effort. [place] lifts or holds trunk or limbs and provides more than half the effort. 8-Pinvbnljz-rbjcww does ALL the effort. Patient does none of the effort to complete the activity. Or, the assistance of 2 or more helpers is required for the patient to complete the activity. If activity was not attempted, code reason: 7-Patient Refused. 9-Not Applicable-not attempted and the patient did not perform the activity before the current illness, exacerbation or injury. 10-Not Attempted due to Environmental Limitations-(lack of equipment, weather restraints, etc.). 88-Not Attempted due to Medical Conditions or Safety Concerns. Sit to Stand (QC): 5 Chair/Igp-ta-Thiqa Xfer(QC): 5 Gait Training Does the Patient Walk?: Yes Distance: 210ft Walk 10 feet (QC): 5 Walk 50 ft with 2 Turns(QC): 5 Walk 150 ft (QC): 5 Gait Persons Needed: 1 Gait Assistive Device: FWW Wheelchair Training Does the Pt Use a Wheelchair?: No Assessment Current Status: Good Progress Pt is highly motivated to get up and walk. PT Meat Department Manager Goals Half-Way Goals PT Meat Department Manager Goals Time Frame: Dec 08, 2022 Roll Left & Right (QC): 6 Sit to Lying (QC): 6 Lying-Sitting on Side/Bed(QC): 6 Sit to Stand (QC): 6 Chair/Peq-bd-Nddtt Xfer(QC): 6 Toilet Transfer (QC): 6 Walk 10 feet (QC): 6 Walk 50ft with 2 Turns (QC): 6 Walk 150 ft (QC): 6 PT Plan Treatment/Plan Treatment Plan: Continue Plan of Care Treatment Plan: Bed Mobility, Education, Functional Activity Laura, Functional Strength, Gait, Safety, Therapeutic Exercise, Transfers Treatment Duration: Dec 08, 2022 Frequency: 6 times per week Estimated Hrs Per Day: .25 hour per day Patient and/or Family Agrees t: Yes Time Time In: 1142 Time Out: 1157 DATE: Dec 01, 2022 Total Billed Treatment Time: 15 Total Billed Treatment 1, gt 15 SHAZIA JAIMES PT Dec 01, 2022 13:33
[2022-12-01] MEDS: ENOXAPARIN 40 MG/0.4 ML (LOVENOX) SYR SC SCH (19:16)
[2022-12-01] MEDS: LACTULOSE SYRUP 10GM/15ML (ENULOSE) 30ML UDC PO SCH (19:17)
[2022-12-01] MEDS: ALPRAZolam 0.5 MG (XANAX) TAB PO PRN (19:29)
[2022-12-02 03:28] VITALS: BP 114/71
[2022-12-02] MEDS: CEFEPIME INJECTION 1,000 MG in NS (IVPB) 50 ML IV SCH ×3 (04:26→19:54)
[2022-12-02 04:37] LABS: BASOPHILS # (AUTO) 0.1 10^3/uL (0.0-0.1); BASOPHILS % (AUTO) 1 % (0-10); EOSINOPHILS # (AUTO) 0.2 10^3/uL (0.0-0.3); EOSINOPHILS % (AUTO) 2 % (0-10); HEMATOCRIT 23 % (35-52); LYMPHOCYTES % (AUTO) 7 % (12-44); MEAN CORPUSCULAR HEMOGLOBIN 29 pg (25-34); MEAN CORPUSCULAR HGB CONC 35 g/dL (32-36); MEAN CORPUSCULAR VOLUME 84 fL (80-99); MEAN PLATELET VOLUME 8.7 fL (9.0-12.2); MONOCYTES # (AUTO) 0.5 10^3/uL (0.0-1.0); MONOCYTES % (AUTO) 4 % (0-12); NEUTROPHILS # (AUTO) 11.5 10^3/uL (1.8-7.8); NEUTROPHILS % (AUTO) 86 % (42-75); PLATELET COUNT 448 10^3/uL (130-400); WHITE BLOOD COUNT 13.4 10^3/uL (4.3-11.0)
[2022-12-02 04:57] LABS: ALBUMIN 2.7 GM/DL (3.2-4.5); BILIRUBIN,TOTAL 0.6 MG/DL (0.1-1.0); CALCIUM 8.2 MG/DL (8.5-10.1); CREATININE SERUM 0.6 MG/DL (0.60-1.30)
--- NOTE | 2022-12-02 07:01 | Progress Note ---
Subjective Date Seen by a Provider: Dec 02, 2022 Time Seen by a Provider: 15:00 Subjective/Events-last exam Patient doing a lot better Requiring more oxygen due to difficulty getting a pulse ox She seems to be less short of breath but still having conversational dyspnea Son at the bedside Plan on continuing PT and OT and may need swing bed or inpatient rehab tomorrow Weaning off O2 to a reasonable level Bowels have not moved so we will increase laxatives Iron level low so we will start iron infusions tomorrow Review of Systems General: Fatigue, Malaise Pulmonary: Dyspnea, Cough Objective Exam Last Set of Vital Signs Vital Signs Date Time Temp Pulse Resp B/P (MAP) Pulse Ox O2 Delivery O2 Flow Rate FiO2 12/02/22 03:28 37.3 98 16 114/71 (85) 91 High Flow N/C 7.00 12/01/22 20:48 21 Capillary Refill : Less Than 3 Seconds I&O Intake and Output 12/02/22 00:00 Intake Total 810 ml Output Total 200 ml Balance 610 ml Intake Oral 660 ml IV Total 150 ml Output Urine Total 200 ml # Voids 5 # Bowel Movements 1 General: Alert, Oriented X3, Cooperative, No Acute Distress Lungs: Clear to Auscultation, Normal Air Movement Heart: Regular Rate, Normal S1, Normal S2, No Murmurs Psych/Mental Status: Mental Status NL, Mood NL Results Lab Laboratory Tests 12/02/22 04:30: White Blood Count 13.4H, Red Blood Count 2.74L, Hemoglobin 8.0L, Hematocrit 23L, Mean Corpuscular Volume 84, Mean Corpuscular Hemoglobin 29, Mean Corpuscular Hemoglobin Concent 35, Red Cell Distribution Width 17.3H, Platelet Count 448H, Mean Platelet Volume 8.7L, Immature Granulocyte % (Auto) 1, Neutrophils (%) (Auto) 86H, Lymphocytes (%) (Auto) 7L, Monocytes (%) (Auto) 4, Eosinophils (%) (Auto) 2, Basophils (%) (Auto) 1, Neutrophils # (Auto) 11.5H, Lymphocytes # (Auto) 1.0, Monocytes # (Auto) 0.5, Eosinophils # (Auto) 0.2, Basophils # (Auto) 0.1, Immature Granulocyte # (Auto) 0.2H, Sodium Level 132L, Potassium Level 4.0, Chloride Level 102, Carbon Dioxide Level 20L, Anion Gap 10, Blood Urea Nitrogen 13, Creatinine 0.60, Estimat Glomerular Filtration Rate 86, BUN/Creatinine Ratio 22, Glucose Level 88, Calcium Level 8.2L, Corrected Calcium 9.2, Total Bilirubin 0.6, Aspartate Amino Transf (AST/SGOT) 44H, Alanine Aminotransferase (ALT/SGPT) 18, Alkaline Phosphatase 58, Total Protein 5.0L, Albumin 2.7L Microbiology 11/30/22 MRSA Screen - Final, Complete MRSA not isolated 11/28/22 Urine Culture - Final, Complete NO GROWTH 11/28/22 Blood Culture - Preliminary, Resulted No growth Assessment/Plan Assessment/Plan Assess & Plan/Chief Complaint Assessment: Bilateral pneumonia / Sepsis - Vancomycin discontinued after MRSA swab negative - Cefepime maintained Hypokaelmia / Hyponatremia / Hypocalcemia - likely related to chemotherapy and fluids Hypokalemia * resolved with KCl Hyponatremia * fluids restricted to 1200 ml * NaCl salt replacement tablets PO Hypocalcemia * monitor Anemia - Hb 8.3 down from 10.4 11/29 - ferrous sulfate -Start iron infusions COPD - albuterol-ipratropium - 4 L of 02 nasal canula 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
[2022-12-02] MEDS: RT-ALBUTEROL/IPRATROPIUM 3 ML (DUONEB) VIAL INH SCH ×3 (07:29→21:22)
[2022-12-02 07:48] VITALS: BP 102/56
[2022-12-02] MEDS: KCL 20 MEQ TAB (K-DUR) PO SCH ×2 (07:58→19:48)
[2022-12-02] MEDS: SODIUM CHLORIDE 1 GM TABLET PO SCH ×2 (07:58→19:47)
[2022-12-02] MEDS: MULTIVIT W/MINERALS TAB (THERAGRAN M) PO SCH (07:58)
[2022-12-02] MEDS: ANASTROZOLE 1 MG TAB (ARIMIDEX) PO SCH (07:58)
[2022-12-02] MEDS: DOCUSATE SODIUM 100 MG (COLACE) CAP PO SCH ×2 (11:17→19:48)
[2022-12-02] MEDS: SENNOSIDES 8.6 MG (SENOKOT) TAB PO SCH ×2 (11:18→19:48)
[2022-12-02 12:17] VITALS: BP 111/59
[2022-12-02] MEDS: FERROUS SULF 325 MG (IRON) TAB PO SCH (12:26)
[2022-12-02 16:05] VITALS: BP 119/68
[2022-12-02] MEDS: LACTULOSE SYRUP 10GM/15ML (ENULOSE) 30ML UDC PO PRN (16:11)
[2022-12-02] MEDS: methylPREDNISolone 40 MG/ML (Solu-MEDROL) VIAL IV SCH ×2 (16:12→19:49)
[2022-12-02] MEDS: LACTULOSE SYRUP 10GM/15ML (ENULOSE) 30ML UDC PO SCH (19:46)
[2022-12-02] MEDS: ALPRAZolam 0.5 MG (XANAX) TAB PO PRN (19:48)
[2022-12-02] MEDS: ENOXAPARIN 40 MG/0.4 ML (LOVENOX) SYR SC SCH (19:49)
[2022-12-02 20:28] VITALS: BP 114/71
[2022-12-02] MEDS ORDERED: ADVAIR HFA 115/21 MCG INHALER 8 GM IH SCH (21:00)
[2022-12-02] MEDS ORDERED: MONTELUKAST 10 MG (SINGULAIR) TAB PO SCH (21:00)
[2022-12-02] MEDS: RT--FLUTICASONE/SALMETEROL 113-14 (AIRDUO RespiCLICK) IH SCH (21:20)
[2022-12-02 23:06] VITALS: BP 118/72
[2022-12-03 03:41] VITALS: BP 111/65
[2022-12-03] MEDS: CEFEPIME INJECTION 1,000 MG in NS (IVPB) 50 ML IV SCH ×2 (04:56→12:48)
[2022-12-03 05:11] LABS: BASOPHILS % (AUTO) 0 % (0-10); EOSINOPHILS % (AUTO) 0 % (0-10); HEMATOCRIT 24 % (35-52); HEMOGLOBIN 8.3 g/dL (11.5-16.0); LYMPHOCYTES # (AUTO) 1.2 10^3/uL (1.0-4.0); LYMPHOCYTES % (AUTO) 8 % (12-44); MEAN CORPUSCULAR HEMOGLOBIN 29 pg (25-34); MEAN CORPUSCULAR HGB CONC 34 g/dL (32-36); MEAN CORPUSCULAR VOLUME 84 fL (80-99); MEAN PLATELET VOLUME 8.9 fL (9.0-12.2); MONOCYTES # (AUTO) 0.4 10^3/uL (0.0-1.0); MONOCYTES % (AUTO) 3 % (0-12); NEUTROPHILS % (AUTO) 87 % (42-75); PLATELET COUNT 405 10^3/uL (130-400); WHITE BLOOD COUNT 14.8 10^3/uL (4.3-11.0)
[2022-12-03 05:29] LABS: ALBUMIN 2.8 GM/DL (3.2-4.5); BILIRUBIN,TOTAL 0.5 MG/DL (0.1-1.0); CALCIUM 8.4 MG/DL (8.5-10.1); CREATININE SERUM 0.62 MG/DL (0.60-1.30); POTASSIUM 4.2 MMOL/L (3.6-5.0); TOTAL PROTEIN 5.1 GM/DL (6.4-8.2)
[2022-12-03 08:00] VITALS: BP 111/70
[2022-12-03] MEDS: RT--FLUTICASONE/SALMETEROL 113-14 (AIRDUO RespiCLICK) IH SCH (08:05)
[2022-12-03] MEDS: RT-ALBUTEROL/IPRATROPIUM 3 ML (DUONEB) VIAL INH SCH (08:05)
[2022-12-03] MEDS: MULTIVIT W/MINERALS TAB (THERAGRAN M) PO SCH (08:55)
[2022-12-03] MEDS: methylPREDNISolone 40 MG/ML (Solu-MEDROL) VIAL IV SCH (08:55)
[2022-12-03] MEDS: SENNOSIDES 8.6 MG (SENOKOT) TAB PO SCH ×2 (08:55→09:00)
[2022-12-03] MEDS: KCL 20 MEQ TAB (K-DUR) PO SCH (08:55)
[2022-12-03] MEDS: DOCUSATE SODIUM 100 MG (COLACE) CAP PO SCH ×2 (08:55→09:00)
[2022-12-03] MEDS: SODIUM CHLORIDE 1 GM TABLET PO SCH (09:00)
[2022-12-03] MEDS ORDERED: IRON SUCROSE 200 MG/10 ML (VENOFER) VIAL IV SCH (09:00)
[2022-12-03] MEDS: ANASTROZOLE 1 MG TAB (ARIMIDEX) PO SCH (09:00)
--- NOTE | 2022-12-03 10:30 | Physical Therapy Daily Note ---
PT Daily Note-Current Subjective Patient agrees to PT. Requests toilet use. Noted incontinent BM. Pain Section J - Health Conditions 1. Rarely or not at all 2. Occasionally 3. Frequently 4. Almost constantly 8. Unable to answer Pain Effect on Sleep: 1 Pain Interference with Therapy: 1 Pain Interference w/Day-to-Day: 1 Mental Status Patient Orientation: Normal For Age Attachments: Oxygen Transfers SCALE: Activities may be completed with or without assistive devices. 7-Getymfyjgb-qmozdkn completes the activity by him/herself with no assistance from a helper. 5-Set-up or Clean-up Assistance-helper sets up or cleans up; patient completes activity. [place] assists only prior to or following the activity. 4-Supervision or Touching Assistance-helper provides verbal cues and/or touching/steadying and/or contact guard assistance as patient completes activity. Assistance may be provided throughout the activity or intermittently. 3-Partial/Moderate Assistance-helper does LESS THAN HALF the effort. [place] lifts, holds or supports trunk or limbs, but provides less than half the effort. 2-Substantial/Maximal Assistance-helper does MORE THAN HALF the effort. [place] lifts or holds trunk or limbs and provides more than half the effort. 3-Bwbmgmdgi-jzpmhj does ALL the effort. Patient does none of the effort to complete the activity. Or, the assistance of 2 or more helpers is required for the patient to complete the activity. If activity was not attempted, code reason: 7-Patient Refused. 9-Not Applicable-not attempted and the patient did not perform the activity before the current illness, exacerbation or injury. 10-Not Attempted due to Environmental Limitations-(lack of equipment, weather restraints, etc.). 88-Not Attempted due to Medical Conditions or Safety Concerns. Lying to Sitting/Side of Bed(Q: 6 Sit to Stand (QC): 5 Chair/Saf-uh-Tgcll Xfer(QC): 5 Toilet Transfer (QC): 5 Gait Training Distance: 450' Walk 10 feet (QC): 5 Walk 50 ft with 2 Turns(QC): 5 Walk 150 ft (QC): 5 Gait Assistive Device: FWW safe and functional with no deviation Assessment PT assist to cleanse and change patient due to incontinent BM. Patient tolerated treatment well and is up in recliner with needs met. Patient ambulate 450' FWW with PT assist for O2 tank only. PT to continue to increase activity as tolerated by patient. 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 Goals [facility] Goals 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 Goals Time Frame: Dec 08, 2022 Roll Left & Right (QC): 6 Sit to Lying (QC): 6 Lying-Sitting on Side/Bed(QC): 6 Sit to Stand (QC): 6 Chair/Fwq-uh-Lwwum Xfer(QC): 6 Toilet Transfer (QC): 6 Walk 10 feet (QC): 6 Walk 50ft with 2 Turns (QC): 6 Walk 150 ft (QC): 6 PT Plan Treatment/Plan Treatment Plan: Continue Plan of Care Treatment Plan: Bed Mobility, Education, Functional Activity Laura, Functional Strength, Gait, Safety, Therapeutic Exercise, Transfers Treatment Duration: Dec 08, 2022 Frequency: 6 times per week Estimated Hrs Per Day: .25 hour per day Patient and/or Family Agrees t: Yes Time Time In: 905 Time Out: 929 DATE: Dec 03, 2022 Total Billed Treatment Time: 24 Total Billed Treatment 1 visit FA x 2 24 min NORBERT CLOUD PT Dec 03, 2022 10:29
--- NOTE | 2022-12-03 11:21 | Diagnostic Imaging Report ---
INDICATION: Wheezing. TECHNIQUE: Frontal chest obtained at 05:32 a.m. and compared with 11/28/2022. FINDINGS: Heart is normal in size. There are bilateral upper lobe infiltrates which are worsened compared to the prior study. Port-A-Cath is unchanged with tip overlying the SVC. There is some increasing infiltrate in the right base as well. There is no pneumothorax. There is a trace of pleural fluid on both sides. IMPRESSION: Worsening infiltrates in bilateral upper lobes and right lung base. Trace bilateral pleural effusions. There is no pneumothorax. Dictated by: Dictated on workstation # [id number]
--- NOTE | 2022-12-03 11:26 | Discharge Summary ---
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 Immunosuppression - on Ketryuda before admission - oxycodone - ondansetron Plan: Laxatives Wean oxygen since that 8 L right now Inpatient rehab versus swing bed tomorrow IV iron infusions IV steroids Advair Singulair Diagnosis/Problems Diagnosis/Problems (1) Sepsis (2) Bilateral pneumonia Status: Acute (3) Metastatic cancer (4) Breast cancer, right (5) Hypertension Status: Chronic (6) Hyperlipidemia Status: Chronic (7) Depression Status: Chronic (8) Anxiety (9) Insomnia Status: Chronic Discharge Summary Discharge Physical Examination Allergies: Coded Allergies: Penicillins (Verified Allergy, Unknown, EDEMA YEARS AGO, UNKNOWN IF ANY OTHER REACTION, 10/04/22) Vitals & I&Os Vital Signs Date Time Temp Pulse Resp B/P (MAP) Pulse Ox O2 Delivery O2 Flow Rate FiO2 12/03/22 12:00 36.9 90 16 120/78 (92) 90 Nasal Cannula 6.00 12/01/22 20:48 21 General Appearance: Alert, Oriented X3, Cooperative Respiratory: Clear to Auscultation Cardiovascular: Regular Rate Psych/Mental Status: Mental Status NL Hospital Course Was the Problem List Reviewed?: Yes Assessment: Continued debility Hypoxia requiring 6L of oxygen Exacerbation of COPD Pneumonia Breast cancer with abdominal metastasis Plan: Swing bed Continue therapy Standard hospital course after admitting from ER for hypoxia from PNA following chemotherapy regimen for breast cancer with mets. Labs returned back to near normal but hypoxia remained requiring steroids and ICS and Singulair along with PT OT and required swing bed to ultimately wean O2 and return home. Labs (last 24 hrs) Laboratory Tests 11/28/22 15:15: Lactic Acid Level 1.15 11/28/22 15:35: Prothrombin Time 15.1H, INR Comment 1.1, Activated Partial Thromboplast Time 31, Procalcitonin 0.15H 11/28/22 15:43: Urine Color YELLOW, Urine Clarity CLEAR, Urine pH 5.5, Urine Specific Reynolds >=1.030, Urine Protein NEGATIVE, Urine Glucose (UA) NEGATIVE, Urine Ketones TRACEH, Urine Nitrite NEGATIVE, Urine Bilirubin NEGATIVE, Urine Urobilinogen 0.2, Urine Leukocyte Esterase NEGATIVE, Urine RBC (Auto) NEGATIVE, Urine RBC 0- 2, Urine WBC 0-2, Urine Squamous Epithelial Cells NONE, Urine Crystals NONE, Urine Bacteria TRACE, Urine Casts NONE, Urine Mucus SMALLH, Urine Culture Indicated CULTURE PENDING 11/28/22 15:47: Influenza Type A (RT-PCR) Not Detected, Influenza Type B (RT-PCR) Not Detected, SARS-CoV-2 RNA (RT-PCR) Not Detected 11/28/22 16:45: Blood Gas Puncture Site R RADIAL, Blood Gas Patient Temperature 100.4, Arterial Blood pH 7.46H, Arterial Blood Partial Pressure CO2 31L, Arterial Blood Partial Pressure O2 64L, Arterial Blood HCO3 21L, Arterial Blood Total CO2 22.1, Arterial Blood Oxygen Saturation 94, Arterial Blood Base Excess -1.9, Leopoldo Test NA, Blood Gas Ventilator Setting NO, Blood Gas Inspired Oxygen 3 L 11/29/22 06:34: White Blood Count 13.0H, Red Blood Count 3.59L, Hemoglobin 10.4L, Hematocrit 30L , Mean Corpuscular Volume 84, Mean Corpuscular Hemoglobin 29, Mean Corpuscular Hemoglobin Concent 34, Red Cell Distribution Width 16.8H, Platelet Count 402H, Mean Platelet Volume 8.6L, Immature Granulocyte % (Auto) 2, Neutrophils (%) (Auto) 83H, Lymphocytes (%) (Auto) 7L, Monocytes (%) (Auto) 4, Eosinophils (%) (Auto) 3, Basophils (%) (Auto) 1, Neutrophils # (Auto) 10.8H, Lymphocytes # (Auto) 0.9L, Monocytes # (Auto) 0.6, Eosinophils # (Auto) 0.4H, Basophils # (Auto) 0.1, Immature Granulocyte # (Auto) 0.2H, Neutrophils % (Manual) 83, Lymphocytes % (Manual) 10, Monocytes % (Manual) 2, Eosinophils % (Manual) 3, Band Neutrophils 2, Kojo Rods , Anisocytosis SLIGHT, [place] Cells SLIGHT, Acanthocytes MODERATE, Sodium Level 131L, Potassium Level 3.1L, Chloride Level 98, Carbon Dioxide Level 22, Anion Gap 11, Blood Urea Nitrogen 8, Creatinine 0.65, Estimat Glomerular Filtration Rate 84, BUN/Creatinine Ratio 12, Glucose Level 78, Calcium Level 8.5, Corrected Calcium 9.0, Total Bilirubin 0.6, Aspartate Amino Transf (AST/SGOT) 29, Alanine Aminotransferase (ALT/SGPT) 21, Alkaline Phosphatase 75, Total Protein 6.0L, Albumin 3.4 11/30/22 05:00: White Blood Count 12.8H, Red Blood Count 2.87L, Hemoglobin 8.3#L, Hematocrit 24L , Mean Corpuscular Volume 83, Mean Corpuscular Hemoglobin 29, Mean Corpuscular Hemoglobin Concent 35, Red Cell Distribution Width 16.9H, Platelet Count 350, Mean Platelet Volume 8.4L, Immature Granulocyte % (Auto) 1, Neutrophils (%) (Auto) 84H, Lymphocytes (%) (Auto) 7L, Monocytes (%) (Auto) 4, Eosinophils (%) (Auto) 2, Basophils (%) (Auto) 1, Neutrophils # (Auto) 10.8H, Lymphocytes # (Auto) 0.9L, Monocytes # (Auto) 0.6, Eosinophils # (Auto) 0.3, Basophils # (Auto) 0.1, Immature Granulocyte # (Auto) 0.2H, Sodium Level 127L, Potassium Level 3.6, Chloride Level 98, Carbon Dioxide Level 21, Anion Gap 8, Blood Urea Nitrogen 11, Creatinine 0.61, Estimat Glomerular Filtration Rate 85, BUN/Creatinine Ratio 18, Glucose Level 94, Calcium Level 7.9L, Corrected Calcium 8.9, Total Bilirubin 0.6, Aspartate Amino Transf (AST/SGOT) 30, Alanine Aminotransferase (ALT/SGPT) 17, Alkaline Phosphatase 56, Total Protein 4.8L, Albumin 2.7L 12/01/22 04:30: White Blood Count 12.7H, Red Blood Count 2.75L, Hemoglobin 7.8L, Hematocrit 23L, Mean Corpuscular Volume 83, Mean Corpuscular Hemoglobin 28, Mean Corpuscular Hemoglobin Concent 34, Red Cell Distribution Width 17.1H, Platelet Count 404H, Mean Platelet Volume 8.8L, Immature Granulocyte % (Auto) 1, Neutrophils (%) (Auto) 85H, Lymphocytes (%) (Auto) 8L, Monocytes (%) (Auto) 4, Eosinophils (%) (Auto) 1, Basophils (%) (Auto) 1, Neutrophils # (Auto) 10.8H, Lymphocytes # (Auto) 1.0, Monocytes # (Auto) 0.5, Eosinophils # (Auto) 0.2, Basophils # (Auto) 0.1, Immature Granulocyte # (Auto) 0.1, Sodium Level 129L, Potassium Level 4.0, Chloride Level 100, Carbon Dioxide Level 21, Anion Gap 8, Blood Urea Nitrogen 12, Creatinine 0.59L, Estimat Glomerular Filtration Rate 86, BUN/Creatinine Ratio 20, Glucose Level 78, Calcium Level 8.0L, Corrected Calcium 9.0, Total Bilirubin 0.6, Aspartate Amino Transf (AST/SGOT) 38H, Alanine Aminotransferase (ALT/SGPT) 17, Alkaline Phosphatase 56, Total Protein 4.7L, Albumin 2.7L 12/02/22 04:30: White Blood Count 13.4H, Red Blood Count 2.74L, Hemoglobin 8.0L, Hematocrit 23L, Mean Corpuscular Volume 84, Mean Corpuscular Hemoglobin 29, Mean Corpuscular Hemoglobin Concent 35, Red Cell Distribution Width 17.3H, Platelet Count 448H, Mean Platelet Volume 8.7L, Immature Granulocyte % (Auto) 1, Neutrophils (%) (Auto) 86H, Lymphocytes (%) (Auto) 7L, Monocytes (%) (Auto) 4, Eosinophils (%) (Auto) 2, Basophils (%) (Auto) 1, Neutrophils # (Auto) 11.5H, Lymphocytes # (Auto) 1.0, Monocytes # (Auto) 0.5, Eosinophils # (Auto) 0.2, Basophils # (Auto) 0.1, Immature Granulocyte # (Auto) 0.2H, Sodium Level 132L, Potassium Level 4.0, Chloride Level 102, Carbon Dioxide Level 20L, Anion Gap 10, Blood Urea Nitrogen 13, Creatinine 0.60, Estimat Glomerular Filtration Rate 86, BUN/Creatinine Ratio 22, Glucose Level 88, Calcium Level 8.2L, Corrected Calcium 9.2, Total Bilirubin 0.6, Aspartate Amino Transf (AST/SGOT) 44H, Alanine Aminotransferase (ALT/SGPT) 18, Alkaline Phosphatase 58, Total Protein 5.0L, Albumin 2.7L 12/02/22 08:12: Iron Level 23L, Vitamin B12 Level >2000H 12/02/22 23:15: Stool Occult Blood Immunoassay NEGATIVE 12/03/22 05:04: White Blood Count 14.8H, Red Blood Count 2.89L, Hemoglobin 8.3L, Hematocrit 24L, Mean Corpuscular Volume 84, Mean Corpuscular Hemoglobin 29, Mean Corpuscular Hemoglobin Concent 34, Red Cell Distribution Width 17.6H, Platelet Count 405H, Mean Platelet Volume 8.9L, Immature Granulocyte % (Auto) 2, Neutrophils (%) (Auto) 87H, Lymphocytes (%) (Auto) 8L, Monocytes (%) (Auto) 3, Eosinophils (%) (Auto) 0, Basophils (%) (Auto) 0, Neutrophils # (Auto) 13.0H, Lymphocytes # (Auto) 1.2, Monocytes # (Auto) 0.4, Eosinophils # (Auto) 0.0, Basophils # (Auto) 0.0, Immature Granulocyte # (Auto) 0.2H, Sodium Level 133L, Potassium Level 4.2, Chloride Level 103, Carbon Dioxide Level 21, Anion Gap 9, Blood Urea Nitrogen 12, Creatinine 0.62, Estimat Glomerular Filtration Rate 85, BUN/Creatinine Ratio 19, Glucose Level 134H, Calcium Level 8.4L, Corrected Calcium 9.4, Total Bilirubin 0.5, Aspartate Amino Transf (AST/SGOT) 61H, Alanine Aminotransferase (ALT/SGPT) 29, Alkaline Phosphatase 64, Total Protein 5.1L, Albumin 2.8L Microbiology 11/30/22 MRSA Screen - Final, Complete MRSA not isolated 11/28/22 Urine Culture - Final, Complete NO GROWTH 11/28/22 Blood Culture - Final, Complete No growth Pending Labs Microbiology Date/Time Source Procedure Growth Status 11/30/22 14:30 Nasal MRSA Screen - Final MRSA not isolated Complete 11/28/22 18:00 Sputum Induced Gram Stain - Final Complete 11/28/22 18:00 Sputum Culture - Final Usual upper respiratory isaiah Complete 11/28/22 15:43 Urine Clean Catch Urine Culture - Final NO GROWTH Complete 11/28/22 15:35 Peripheral Rt Ac Blood Culture - Final No growth Complete 1/4/23 15:15 [place], Nos Blood Culture - Final No growth Complete Laboratory Tests 11/28/22 15:15: Lactic Acid Level 1.15 11/28/22 15:35: Prothrombin Time 15.1, INR Comment 1.1, Activated Partial Thromboplast Time 31, Procalcitonin 0.15 11/28/22 15:43: Urine Color YELLOW, Urine Clarity CLEAR, Urine pH 5.5, Urine Specific Reynolds >=1.030, Urine Protein NEGATIVE, Urine Glucose (UA) NEGATIVE, Urine Ketones TRACE, Urine Nitrite NEGATIVE, Urine Bilirubin NEGATIVE, Urine Urobilinogen 0.2, Urine Leukocyte Esterase NEGATIVE, Urine RBC (Auto) NEGATIVE, Urine RBC 0-2, Urine WBC 0-2, Urine Squamous Epithelial Cells NONE, Urine Crystals NONE, Urine Bacteria TRACE, Urine Casts NONE, Urine Mucus SMALL, Urine Culture Indicated CULTURE PENDING 11/28/22 15:47: Influenza Type A (RT-PCR) Not Detected, Influenza Type B (RT-PCR) Not Detected, SARS-CoV-2 RNA (RT-PCR) Not Detected 11/28/22 16:45: Blood Gas Puncture Site R RADIAL, Blood Gas Patient Temperature 100.4, Arterial Blood pH 7.46, Arterial Blood Partial Pressure CO2 31, Arterial Blood Partial Pressure O2 64, Arterial Blood HCO3 21, Arterial Blood Total CO2 22.1, Arterial Blood Oxygen Saturation 94, Arterial Blood Base Excess -1.9, Leopoldo Test NA, Blood Gas Ventilator Setting NO, Blood Gas Inspired Oxygen 3 L 11/29/22 06:34: White Blood Count 13.0, Red Blood Count 3.59, Hemoglobin 10.4, Hematocrit 30, Mean Corpuscular Volume 84, Mean Corpuscular Hemoglobin 29, Mean Corpuscular Hemoglobin Concent 34, Red Cell Distribution Width 16.8, Platelet Count 402, Mean Platelet Volume 8.6, Immature Granulocyte % (Auto) 2, Neutrophils (%) ( Auto) 83, Lymphocytes (%) (Auto) 7, Monocytes (%) (Auto) 4, Eosinophils (%) (Auto) 3, Basophils (%) (Auto) 1, Neutrophils # (Auto) 10.8, Lymphocytes # (Auto) 0.9, Monocytes # (Auto) 0.6, Eosinophils # (Auto) 0.4, Basophils # (Auto) 0.1, Immature Granulocyte # (Auto) 0.2, Neutrophils % (Manual) 83, Lymphocytes % (Manual) 10, Monocytes % (Manual) 2, Eosinophils % (Manual) 3, Band Neutrophils 2, Kojo Rods , Anisocytosis SLIGHT, [place] Cells SLIGHT, Acanthocytes MODERATE, Sodium Level 131, Potassium Level 3.1, Chloride Level 98, Carbon Dioxide Level 22, Anion Gap 11, Blood Urea Nitrogen 8, Creatinine 0.65, Estimat Glomerular Filtration Rate 84, BUN/Creatinine Ratio 12, Glucose Level 78, Calcium Level 8.5, Corrected Calcium 9.0, Total Bilirubin 0.6, Aspartate Amino Transf (AST/SGOT) 29, Alanine Aminotransferase (ALT/SGPT) 21, Alkaline Phosphatase 75, Total Protein 6.0, Albumin 3.4 11/30/22 05:00: White Blood Count 12.8, Red Blood Count 2.87, Hemoglobin 8.3, Hematocrit 24, Mean Corpuscular Volume 83, Mean Corpuscular Hemoglobin 29, Mean Corpuscular Hemoglobin Concent 35, Red Cell Distribution Width 16.9, Platelet Count 350, Mean Platelet Volume 8.4, Immature Granulocyte % (Auto) 1, Neutrophils (%) (Auto) 84, Lymphocytes (%) (Auto) 7, Monocytes (%) (Auto) 4, Eosinophils (%) (Auto) 2, Basophils (%) (Auto) 1, Neutrophils # (Auto) 10.8, Lymphocytes # (Auto) 0.9, Monocytes # (Auto) 0.6, Eosinophils # (Auto) 0.3, Basophils # (Auto) 0.1, Immature Granulocyte # (Auto) 0.2, Sodium Level 127, Potassium Level 3.6, Chloride Level 98, Carbon Dioxide Level 21, Anion Gap 8, Blood Urea Nitrogen 11, Creatinine 0.61, Estimat Glomerular Filtration Rate 85, BUN/Creatinine Ratio 18, Glucose Level 94, Calcium Level 7.9, Corrected Calcium 8.9, Total Bilirubin 0.6, Aspartate Amino Transf (AST/SGOT) 30, Alanine Aminotransferase (ALT/SGPT) 17, Alkaline Phosphatase 56, Total Protein 4.8, Albumin 2.7 12/01/22 04:30: White Blood Count 12.7, Red Blood Count 2.75, Hemoglobin 7.8, Hematocrit 23, Mean Corpuscular Volume 83, Mean Corpuscular Hemoglobin 28, Mean Corpuscular Hemoglobin Concent 34, Red Cell Distribution Width 17.1, Platelet Count 404, Mean Platelet Volume 8.8, Immature Granulocyte % (Auto) 1, Neutrophils (%) (Auto) 85, Lymphocytes (%) (Auto) 8, Monocytes (%) (Auto) 4, Eosinophils (%) (Auto) 1, Basophils (%) (Auto) 1, Neutrophils # (Auto) 10.8, Lymphocytes # (Auto) 1.0, Monocytes # (Auto) 0.5, Eosinophils # (Auto) 0.2, Basophils # (Auto) 0.1, Immature Granulocyte # (Auto) 0.1, Sodium Level 129, Potassium Level 4.0, Chloride Level 100, Carbon Dioxide Level 21, Anion Gap 8, Blood Urea Nitrogen 12, Creatinine 0.59, Estimat Glomerular Filtration Rate 86, BUN/Creatinine Ratio 20, Glucose Level 78, Calcium Level 8.0, Corrected Calcium 9.0, Total Bilirubin 0.6, Aspartate Amino Transf (AST/SGOT) 38, Alanine Aminotransferase (ALT/SGPT) 17, Alkaline Phosphatase 56, Total Protein 4.7, Albumin 2.7 12/02/22 04:30: White Blood Count 13.4, Red Blood Count 2.74, Hemoglobin 8.0, Hematocrit 23, Mean Corpuscular Volume 84, Mean Corpuscular Hemoglobin 29, Mean Corpuscular Hemoglobin Concent 35, Red Cell Distribution Width 17.3, Platelet Count 448, Mean Platelet Volume 8.7, Immature Granulocyte % (Auto) 1, Neutrophils (%) (Auto) 86, Lymphocytes (%) (Auto) 7, Monocytes (%) (Auto) 4, Eosinophils (%) (Auto) 2, Basophils (%) (Auto) 1, Neutrophils # (Auto) 11.5, Lymphocytes # (Auto) 1.0, Monocytes # (Auto) 0.5, Eosinophils # (Auto) 0.2, Basophils # (Auto) 0.1, Immature Granulocyte # (Auto) 0.2, Sodium Level 132, Potassium Level 4.0, Chloride Level 102, Carbon Dioxide Level 20, Anion Gap 10, Blood Urea Nitrogen 13, Creatinine 0.60, Estimat Glomerular Filtration Rate 86, BUN/Creatinine Ratio 22, Glucose Level 88, Calcium Level 8.2, Corrected Calcium 9.2, Total Bilirubin 0.6, Aspartate Amino Transf (AST/SGOT) 44, Alanine Aminotransferase (ALT/SGPT) 18, Alkaline Phosphatase 58, Total Protein 5.0, Albumin 2.7 12/02/22 08:12: Iron Level 23, Vitamin B12 Level >2000 12/02/22 23:15: Stool Occult Blood Immunoassay NEGATIVE 12/03/22 05:04: White Blood Count 14.8, Red Blood Count 2.89, Hemoglobin 8.3, Hematocrit 24, Mean Corpuscular Volume 84, Mean Corpuscular Hemoglobin 29, Mean Corpuscular Hemoglobin Concent 34, Red Cell Distribution Width 17.6, Platelet Count 405, Mean Platelet Volume 8.9, Immature Granulocyte % (Auto) 2, Neutrophils (%) (Auto ) 87, Lymphocytes (%) (Auto) 8, Monocytes (%) (Auto) 3, Eosinophils (%) (Auto) 0, Basophils (%) (Auto) 0, Neutrophils # (Auto) 13.0, Lymphocytes # (Auto) 1.2, Monocytes # (Auto) 0.4, Eosinophils # (Auto) 0.0, Basophils # (Auto) 0.0, Immature Granulocyte # (Auto) 0.2, Sodium Level 133, Potassium Level 4.2, Chloride Level 103, Carbon Dioxide Level 21, Anion Gap 9, Blood Urea Nitrogen 12, Creatinine 0.62, Estimat Glomerular Filtration Rate 85, BUN/Creatinine Ratio 19, Glucose Level 134, Calcium Level 8.4, Corrected Calcium 9.4, Total Bilirubin 0.5, Aspartate Amino Transf (AST/SGOT) 61, Alanine Aminotransferase (ALT/SGPT) 29, Alkaline Phosphatase 64, Total Protein 5.1, Albumin 2.8 Discharge Home Medications: Active Scripts Active Reported Stool Softener (Docusate Sodium) 100 Mg Capsule 200 Mg PO HS Vitamin D3 (Cholecalciferol (Vitamin D3)) 50 Mcg (2000 Unit) Capsule 50 Mcg PO 1700 Ferrous Sulfate 325 Mg (65 Mg Iron) Tablet 325 Mg PO 1200 Multivitamin 1 Each Tablet 1 Each PO DAILY Vision Formula Tablet (Vit A/C/E/Zinc/Selenium/Copper) 1,000-60-30 Tablet 1 Each PO DAILY Losartan Potassium 25 Mg Tablet 25 Mg PO 1700 Constulose (Lactulose) 10 Gram/15 Ml Solution 15 Ml PO HS Arimidex (Anastrozole) 1 Mg Tablet 1 Mg PO DAILY Ventolin Hfa (Albuterol Sulfate) 1 Puff Puff 2 Puff IH Q6H PRN Amlodipine Besylate 5 Mg Tablet 5 Mg PO DAILY Alprazolam 0.5 Mg Tablet 0.5 Mg PO HS Instructions to patient/family Please see electronic discharge instructions given to patient. Diagnosis/Problems Diagnosis/Problems (1) Sepsis (2) Bilateral pneumonia Status: Acute (3) Metastatic cancer (4) Breast cancer, right (5) Hypertension Status: Chronic (6) Hyperlipidemia Status: Chronic (7) Depression Status: Chronic (8) Anxiety (9) Insomnia Status: Chronic JEN HERRERA DO Dec 03, 2022 11:26
[2022-12-03] MEDS ORDERED: NS (IVPB) 50 ML ONE (11:29)
[2022-12-03 12:00] VITALS: BP 120/78
[2022-12-03] MEDS: FERROUS SULF 325 MG (IRON) TAB PO SCH (12:48)
== END 2022-12-03 12:57 | disposition swing bed (61) | DRG 871 ==
LOC: EDUNIT# 14:30 → ER 14:32 → 4TH 17:19
PROVIDERS: ADMIT Internal Medicine; ATTEND Internal Medicine
DX: A41.9 Sepsis, unspecified organism (principal); J18.9 Pneumonia, unspecified organism; C79.89 Secondary malignant neoplasm of other specified sites; J44.0 Chronic obstructive pulmonary disease with (acute) lower respiratory infection; E87.1 Hypo-osmolality and hyponatremia; F17.200 Nicotine dependence, unspecified, uncomplicated; E78.00 Pure hypercholesterolemia, unspecified; I10 Essential (primary) hypertension; F32.A Depression, unspecified; Z20.822 Contact with and (suspected) exposure to COVID-19; F41.9 Anxiety disorder, unspecified; G47.00 Insomnia, unspecified; E87.6 Hypokalemia; E83.51 Hypocalcemia; D64.9 Anemia, unspecified; Z85.3 Personal history of malignant neoplasm of breast; Z82.49 Family history of ischemic heart disease and other diseases of the circulatory system; Z88.0 Allergy status to penicillin; Z79.899 Other long term (current) drug therapy
CPT/HCPCS: 36415; 71045; 80053; 81000; 82274; 82607; 82805; 83540; 83605; 84145; 85007; 85025; 85027; 85610; 85730; 87040; 87070; 87081; 87088; 87205; 87636; 94640; 94760

== ENCOUNTER 2022-12-03 12:09 | Inpatient (IN) | payer MEDICARE ==
[~2022-12-03] VITALS: Ht 167 cm; Wt 67.5 kg
[~2022-12-03 12:09] MED LIST changes: +CHOL20002 PO; +DOCU-26 PO; +FE PO; +FERR-74 PO; +MULT-1136 PO; +VIT-10 PO
[2022-12-03] MEDS ORDERED: BISACODYL 10 MG SUPP (DULCOLAX) PR PRN (13:15)
[2022-12-03] MEDS ORDERED: ACETAMINOPHEN 325 MG TABLET PO PRN (13:15)
[2022-12-03] MEDS ORDERED: MILK OF MAGNESIA 400 MG/5 ML 30 ML UDC PO PRN (13:15)
[2022-12-03] MEDS ORDERED: HYDROmorphone 2 MG/ML VIAL (DILAUDID) IV PRN (13:15)
[2022-12-03] MEDS ORDERED: MELATONIN 3 MG TABLET PO PRN (13:15)
[2022-12-03] MEDS ORDERED: polyethylene glycoL POWDER 17 GM (MIRALAX) PACK PO PRN (13:15)
[2022-12-03] MEDS ORDERED: diphenhydrAMINE 50 MG/ML INJ (BENADRYL) IVP PRN (13:15)
[2022-12-03] MEDS ORDERED: ANTACID SUSP 30 ML UDC (MYLANTA) PO PRN (13:15)
[2022-12-03] MEDS ORDERED: cloNIDine 0.1 MG (CATAPRES) TAB PO PRN (13:15)
[2022-12-03] MEDS ORDERED: ONDANSETRON 4 MG/2 ML (SDV) Z0FRAN IV PRN (13:15)
[2022-12-03] MEDS ORDERED: diphenhydrAMINE 25 MG TAB (BENADRYL) PO PRN (13:15)
[2022-12-03] MEDS ORDERED: ONDANSETRON 4 MG (ZOFRAN) ORAL DISSOLVE TAB PO PRN (13:15)
[2022-12-03] MEDS ORDERED: CALCIUM CARBONATE 500 MG (TUMS) TAB.CHEW PO PRN (13:15)
[2022-12-03] MEDS ORDERED: RT-ALBUTEROL/IPRATROPIUM 3 ML (DUONEB) VIAL INH PRN (13:30)
[2022-12-03] MEDS ORDERED: ENOXAPARIN 40 MG/0.4 ML (LOVENOX) SYR SC SCH (14:00)
[2022-12-03] MEDS ORDERED: CEFEPIME INJECTION 1,000 MG in NS (IVPB) 50 ML IV SCH (14:00)
--- NOTE | 2022-12-03 14:07 | Occupational Therapy Eval ---
OT Evaluation-General/PLF Medical Diagnosis Admission Date Dec 03, 2022 at 13:10 Medical Diagnosis: PNA Onset Date: Nov 28, 2022 Therapy Diagnosis Therapy Diagnosis: decreased ADL status Height/Weight Height (Feet): 5 Height (Inches): 5.00 Weight (Pounds): 150 Weight (Ounces): 0.0 Referral Physician: Feliciano Rowland Reason: Evaluation/Treatment Medical History Pertinent Medical History: COPD, HTN, Smoking Additional Medical History breast CA, asthma, COPD, HTN, VHD, skin CA, depression Current [facility] w/ [facility], found ot have PNA on w/u and findings consistent with sepsis. transfer SWB status 12/03/22 Social History Home: Single Level Current Living Status: Alone Entry Into Home: Stairs With Railing Steps Into Home: 1 ADL-Prior Level of Function SCALE: Activities may be completed with or without assistive devices. 9-Okyqsejtxf-gvrbhif completes the activity by him/herself with no assistance from a helper. 5-Set-up or Clean-up Assistance-helper sets up or cleans up; patient completes activity. [place] assists only prior to or following the activity. 4-Supervision or Touching Assistance-helper provides verbal cues and/or t ouching/steadying and/or contact guard assistance as patient completes activity. Assistance may be provided throughout the activity or intermittently. 3-Partial/Moderate Assistance-helper does LESS THAN HALF the effort. [place] lifts, holds or supports trunk or limbs, but provides less than half the effort. 2-Substantial/Maximal Assistance-helper does MORE THAN HALF the effort. [place] lifts or holds trunk or limbs and provides more than half the effort. 1-Wopzafzem-kbscie does ALL the effort. Patient does none of the effort to complete the activity. Or, the assistance of 2 or more helpers is required for the patient to complete the activity. If activity was not attempted, code reason: 7-Patient Refused. 9-Not Applicable-not attempted and the patient did not perform the activity before the current illness, exacerbation or injury. 10-Not Attempted due to Environmental Limitations-(lack of equipment, weather restraints, etc.). 88-Not Attempted due to Medical Conditions or Safety Concerns. ADL PLOF Comments PT reports independent w/ I/ADLS, driving and functional mobility w/ no ADs Self Care: Independent Functional Cognition: Independent OT Current Status Subjective Pt in bathroom with nursing staff, agreeable to OT Tx. Mental Status/Objective Patient Orientation: Person, Place, Time, Situation Attachments: IV, Oxygen Current Glasses/Contacts: Yes Hand Dominance: Right Upper Extremity ROM WFL Upper Extremity Coordination WFL Upper Extremity Strength grossly 3+/5 ADL-Treatment Eating (QC): 6 Oral Hygiene (QC): 6 Shower/Bathe Self (QC): 4 (SBA) Upper Body Dressing (QC): 5 Lower Body Dressing (QC): 4 (SBA) On/Off Footwear (QC): 6 Toileting Hygiene (QC): 4 (SBA) Other Treatments Pt in bathroom with nursing staff, agreeable to OT Tx. Pt completed dressing and toileting. Pt declined showering stating she completed this AM with nursing staff. Pt indicates she wasn't given the opportunity to complete task herself, per clinical judgment, pt would be able to complete with SBA. Pt stood at sink to wash her hands, SBA, 1 VC to rinse soap. Pt then used FWW to transfer to recliner. OT assisted only with IV and O2 management during mobility/transfers. Post tx, pt in recliner, call light in reach and all needs met. Education OT Patient Education: Correct positioning, Energy conservation, Modified ADL techniques, Progress toward Goal/Update tx plan, Purpose of tx/functional activities, Rehab process Teaching Recipient: Patient Teaching Methods: Discussion Response to Teaching: Verbalize Understanding OT Jail Goals Statistical Analyst Goals Time Frame: Dec 14, 2022 Acute change in mental status: 0 Inattention: 0 Disorganized thinkin Altered level of consciousness: 0 Eating (QC): 6 Oral Hygiene (QC): 6 Toileting Hygiene (QC): 6 Shower/Bathe Self (QC): 6 Upper Body Dressing (QC): 6 Lower Body Dressing (QC): 6 On/Off Footwear (QC): 6 Additional Goals: 1-Demonstrate ADL Tasks, 2-Verbalize Understanding, 3- ImproveStrength/Laura 1=Demonstrate adherence to instructed precautions during ADL tasks. 2=Patient will verbalize/demonstrate understanding of assistive devices/modifications for ADL. 3=Patient will improve strength/tolerance for activity to enable patient to perform ADL's. OT Education/Plan Problem List/Assessment Assessment: Decreased Activ Tolerance, Decreased UE Strength, Impaired I ADL's Pt would benefit from short term skilled OT Services in order to increase safety and independence with ADLS and functional mobility, and education on O2 management in order to maximize LOF for safe return home. Discharge Recommendations Plan/Recommendations: Continue POC Equpiment Recommendations-D/C: Bath Chair Treatment Plan/Plan of Care Patient would benefit from OT for education, treatment and training to promote independence in ADL's, mobility, safety and/or upper extremity function for ADL's. Plan of Care: ADL Retraining, Functional Mobility, UE Funct Exercise/Act Treatment Duration: Dec 14, 2022 Frequency: 5 times per week Estimated Hrs Per Day: .25 hour per day Agreement: Yes Rehab Potential: Good Time Start Time: 13:58 Stop Time: 14:21 DATE: Dec 03, 2022 Total Time Billed (hr/min): 23 Billed Treatment Time 1, EVL (8'), ADL (15') ANTHONY VALDEZ OT Dec 03, 2022 14:07
--- NOTE | 2022-12-03 14:09 | Physical Therapy Evaluation ---
PT Evaluation-General Medical Diagnosis Admission Date Dec 03, 2022 at 13:10 Medical Diagnosis: bilateral pneumonia Onset Date: Nov 28, 2022 Therapy Diagnosis Therapy Diagnosis: debility Height/Weight Height (Feet): 5 Height (Inches): 5.00 Weight (Pounds): 150 Weight (Ounces): 0.0 Precautions Precautions/Isolations: Standard Precautions Referral Physician: Feliciano Reason for Referral: Evaluation/Treatment Medical History Pertinent Medical History: COPD, HTN, Smoking Current History SWB status Reviewed History: Yes Social History Home: Single Level Current Living Status: Alone Entry Into Home: Stairs With Railing PT Steps Into Home: 1 Prior Prior Level of Function SCALE: Activities may be completed with or without assistive devices. 3-Fsobaucvyz-xmeszfb completes the activity by him/herself with no assistance from a helper. 5-Set-up or Clean-up Assistance-helper sets up or cleans up; patient completes activity. [place] assists only prior to or following the activity. 4-Supervision or Touching Assistance-helper provides verbal cues and/or touching/steadying and/or contact guard assistance as patient completes ac tivity. Assistance may be provided throughout the activity or intermittently. 3-Partial/Moderate Assistance-helper does LESS THAN HALF the effort. [place] lifts, holds or supports trunk or limbs, but provides less than half the effort. 2-Substantial/Maximal Assistance-helper does MORE THAN HALF the effort. [place] lifts or holds trunk or limbs and provides more than half the effort. 3-Kayyeppkv-ubtmwg does ALL the effort. Patient does none of the effort to complete the activity. Or, the assistance of 2 or more helpers is required for the patient to complete the activity. If activity was not attempted, code reason: 7-Patient Refused. 9-Not Applicable-not attempted and the patient did not perform the activity before the current illness, exacerbation or injury. 10-Not Attempted due to Environmental Limitations-(lack of equipment, weather restraints, etc.). 88-Not Attempted due to Medical Conditions or Safety Concerns. Bed Mobility: 6 Transfers (B,C,W/C): 6 Gait: 6 Stairs: 6 Indoor Mobility (Ambulation): Independent Stairs: Independent Prior Devices Use: None PT Evaluation-Current Subjective Patient agrees to PT. Incontinent BM. Pain Section J - Health Conditions 1. Rarely or not at all 2. Occasionally 3. Frequently 4. Almost constantly 8. Unable to answer Pain Effect on Sleep: 1 Pain Interference with Therapy: 1 Pain Interference w/Day-to-Day: 1 Objective Attachments: Central Line, Oxygen (6L) ROM/Strength ROM Lower Extremities bilateral LE WFL Strength Lower Extremities 4-/5 grossly bilateral LE all planes Integumentary/Posture Bowel Incontinence: Yes Bladder Incontinence: Yes Posture WFL Neuromuscular (Tone, Coordination, Reflexes) grossly intact Sensory Vision: Functional Hearing: Impaired Transfers Roll Left & Right (QC): 6 Sit to Lying (QC): 6 Lying to Sitting/Side of Bed(Q: 6 Sit to Stand (QC): 5 Chair/Uji-ki-Dpcuo Xfer(QC): 5 Toilet Transfer (QC): 5 Car Transfer (QC): 5 Gait Does the Patient Walk?: Yes Mode of Locomotion: Walk Anticipated Mode of Locomotion: Walk Walk 10 feet (QC): 5 Walk 50 ft with 2 Turns(QC): 5 Walk 150 ft (QC): 5 Walking 10ft/uneven surface-QC: 5 Distance: 450' Gait Assistive Device: FWW Comments/Gait Description safe and functional with no deviation Wheelchair Training Does the Pt Use a Wheelchair?: No Wheel 50 ft with 2 turns (QC): 9 Wheel 150 ft (QC): 9 Type of Wheelchair: N/A Stairs #of Steps: 1 1 Step (curb) (QC): 4 4 Steps (QC): 88 12 Steps (QC): 9 Balance Sitting Static: Normal Sitting Dynamic: Normal Standing Static: Normal Standing Dynamic: Normal Picking up an Object (QC): 4 Treatment Ambulated FWW 450' with PT assist for O2 tank and IV pole only. Patient incontinent BM during session. PCT in to assist with cleansing and changing patient. Assessment/Needs Patient will be seen short term by skilled PT to address functional strength and mobility to ensure safe return to home or care facility at maximum LOF. Rehab Potential: Guarded PT Penitentiary Goals Penitentiary Goals PT Parts Advisor Goals Time Frame: Dec 22, 2022 Roll Left to Right (QC): 6 Sit to Lying (QC): 6 Lying-Sitting on Side/Bed(QC): 6 Sit to Stand (QC): 6 Chair/Urg-dg-Voove Xfer(QC): 6 Toilet/Commode Transfer (QC): 6 Car Transfer (QC): 6 Does the Patient Walk: Yes Walk 10 feet (QC): 6 Walk 10ft-Uneven Surface(QC): 6 Walk 50ft with 2 Turns (QC): 6 Walk 150 ft (QC): 6 Does the Pt use WC or Scooter?: No Wheel 50 feet with 2 turns (QC: 9 Type: N/A Wheel 150 feet: 9 Type: N/A 1 Step (curb) (QC): 6 4 Steps (QC): 4 12 Steps (QC): 4 Picking up an Object (QC): 6 PT Plan Problem List Problem List: Activity Tolerance, Functional Strength, Safety Treatment/Plan Treatment Plan: Continue Plan of Care Treatment Plan: Education, Functional Activity Laura, Functional Strength, Gait, Safety, Therapeutic Exercise, Transfers Treatment Duration: Dec 22, 2022 Frequency: 6 times per week Estimated Hrs Per Day: .25 hour per day Patient and/or Family Agrees t: Yes Time Time In: 1335 Time Out: 1358 DATE: Dec 03, 2022 Total Billed Treatment Time: 23 Total Billed Treatment 1 visit EVModC 8 min FA 15 min NORBERT CLOUD PT Dec 03, 2022 14:09
[2022-12-03] MEDS ORDERED: LACTULOSE SYRUP 10GM/15ML (ENULOSE) 30ML UDC PO PRN (14:15)
[2022-12-03] MEDS: RT-ALBUTEROL/IPRATROPIUM 3 ML (DUONEB) VIAL INH SCH ×2 (17:31→21:36)
--- NOTE | 2022-12-03 18:16 | Progress Note ---
CORAL PURDY 12/03/22 1816: Objective Exam Last Set of Vital Signs Vital Signs Date Time Temp Pulse Resp B/P (MAP) Pulse Ox O2 Delivery O2 Flow Rate FiO2 12/03/22 13:22 86 Capillary Refill : ROBERTO12/04/22 1436: CORAL PURDY Dec 03, 2022 18:16 Dec 04, 2022 14:36
[2022-12-03 19:07] VITALS: BP 112/71
[2022-12-03] MEDS: KCL 20 MEQ TAB (K-DUR) PO SCH (19:24)
[2022-12-03] MEDS ORDERED: NS (IVPB) 0 ML ONE (19:50)
[2022-12-03] MEDS: ENOXAPARIN 40 MG/0.4 ML (LOVENOX) SYR SC SCH (20:03)
[2022-12-03] MEDS: CEFEPIME INJECTION 1,000 MG in NS (IVPB) 50 ML IV SCH (20:03)
[2022-12-03] MEDS: methylPREDNISolone 40 MG/ML (Solu-MEDROL) VIAL IV SCH (20:04)
[2022-12-03] MEDS: MONTELUKAST 10 MG (SINGULAIR) TAB PO SCH (20:04)
[2022-12-03] MEDS: ALPRAZolam 0.5 MG (XANAX) TAB PO PRN (20:08)
[2022-12-03] MEDS: SENNOSIDES 8.6 MG (SENOKOT) TAB PO SCH (20:08)
[2022-12-03] MEDS: SODIUM CHLORIDE 1 GM TABLET PO SCH (20:08)
[2022-12-03] MEDS: LACTULOSE SYRUP 10GM/15ML (ENULOSE) 30ML UDC PO SCH (20:09)
[2022-12-03] MEDS: DOCUSATE SODIUM 100 MG (COLACE) CAP PO SCH (20:09)
[2022-12-03] MEDS: RT--FLUTICASONE/SALMETEROL 113-14 (AIRDUO RespiCLICK) IH SCH (21:36)
[2022-12-04] MEDS: CEFEPIME INJECTION 1,000 MG in NS (IVPB) 50 ML IV SCH ×3 (03:53→20:46)
[2022-12-04 04:49] LABS: BASOPHILS % (AUTO) 0 % (0-10); EOSINOPHILS % (AUTO) 0 % (0-10); HEMATOCRIT 24 % (35-52); HEMOGLOBIN 8.3 g/dL (11.5-16.0); LYMPHOCYTES # (AUTO) 1.4 10^3/uL (1.0-4.0); LYMPHOCYTES % (AUTO) 6 % (12-44); MEAN CORPUSCULAR HEMOGLOBIN 29 pg (25-34); MEAN CORPUSCULAR HGB CONC 34 g/dL (32-36); MEAN CORPUSCULAR VOLUME 84 fL (80-99); MEAN PLATELET VOLUME 8.9 fL (9.0-12.2); MONOCYTES # (AUTO) 0.6 10^3/uL (0.0-1.0); MONOCYTES % (AUTO) 3 % (0-12); NEUTROPHILS # (AUTO) 19.9 10^3/uL (1.8-7.8); NEUTROPHILS % (AUTO) 89 % (42-75); PLATELET COUNT 486 10^3/uL (130-400); WHITE BLOOD COUNT 22.5 10^3/uL (4.3-11.0)
[2022-12-04 05:05] LABS: ALBUMIN 2.7 GM/DL (3.2-4.5); POTASSIUM 4.4 MMOL/L (3.6-5.0)
[2022-12-04 05:07] LABS: CALCIUM 8.3 MG/DL (8.5-10.1)
[2022-12-04 05:09] LABS: BILIRUBIN,TOTAL 0.4 MG/DL (0.1-1.0)
[2022-12-04 05:11] LABS: CREATININE SERUM 0.62 MG/DL (0.60-1.30)
[2022-12-04 05:32] VITALS: BP 120/73
[2022-12-04 07:05] VITALS: BP 120/73
[2022-12-04] MEDS: RT-ALBUTEROL/IPRATROPIUM 3 ML (DUONEB) VIAL INH SCH ×3 (07:05→21:08)
[2022-12-04] MEDS: MULTIVIT W/MINERALS TAB (THERAGRAN M) PO SCH (07:08)
[2022-12-04] MEDS: RT--FLUTICASONE/SALMETEROL 113-14 (AIRDUO RespiCLICK) IH SCH ×2 (07:08→21:08)
[2022-12-04] MEDS: SENNOSIDES 8.6 MG (SENOKOT) TAB PO SCH ×2 (09:02→20:39)
[2022-12-04] MEDS: SODIUM CHLORIDE 1 GM TABLET PO SCH ×2 (09:02→20:39)
[2022-12-04] MEDS: DOCUSATE SODIUM 100 MG (COLACE) CAP PO SCH ×2 (09:03→20:39)
[2022-12-04] MEDS: KCL 20 MEQ TAB (K-DUR) PO SCH ×2 (09:03→17:22)
[2022-12-04] MEDS: ANASTROZOLE 1 MG TAB (ARIMIDEX) PO SCH (09:04)
[2022-12-04] MEDS: methylPREDNISolone 40 MG/ML (Solu-MEDROL) VIAL IV SCH ×2 (09:09→20:38)
--- NOTE | 2022-12-04 10:22 | Physical Therapy Daily Note ---
PT Daily Note-Current Subjective Patient reports she is feeling better on this date. Family present. Pain Section J - Health Conditions 1. Rarely or not at all 2. Occasionally 3. Frequently 4. Almost constantly 8. Unable to answer Pain Effect on Sleep: 1 Pain Interference with Therapy: 1 Pain Interference w/Day-to-Day: 1 Mental Status Patient Orientation: Normal For Age Attachments: Oxygen (4L NC) Transfers SCALE: Activities may be completed with or without assistive devices. 9-Uunuaprlay-uroywax completes the activity by him/herself with no assistance from a helper. 5-Set-up or Clean-up Assistance-helper sets up or cleans up; patient completes activity. [place] assists only prior to or following the activity. 4-Supervision or Touching Assistance-helper provides verbal cues and/or touching/steadying and/or contact guard assistance as patient completes activity. Assistance may be provided throughout the activity or intermittently. 3-Partial/Moderate Assistance-helper does LESS THAN HALF the effort. [place] lifts, holds or supports trunk or limbs, but provides less than half the effort. 2-Substantial/Maximal Assistance-helper does MORE THAN HALF the effort. [place] lifts or holds trunk or limbs and provides more than half the effort. 8-Odlffcfqc-zppdoc does ALL the effort. Patient does none of the effort to complete the activity. Or, the assistance of 2 or more helpers is required for the patient to complete the activity. If activity was not attempted, code reason: 7-Patient Refused. 9-Not Applicable-not attempted and the patient did not perform the activity before the current illness, exacerbation or injury. 10-Not Attempted due to Environmental Limitations-(lack of equipment, weather restraints, etc.). 88-Not Attempted due to Medical Conditions or Safety Concerns. Lying to Sitting/Side of Bed(Q: 6 Sit to Stand (QC): 5 Chair/Fnx-kq-Bcdms Xfer(QC): 5 Toilet Transfer (QC): 5 Gait Training Distance: >500' Walk 10 feet (QC): 5 Walk 50 ft with 2 Turns(QC): 5 Walk 150 ft (QC): 5 Gait Assistive Device: FWW safe and functional with no deviation Exercises Seated Therapy Exercises: Ankle pumps, Long arc quads, Hip flexion Seated Reps: 15 Assessment Patient progressing with treatment plan. PT instructed patient and family to ambulate PRN in hallway with education with family on O2 tank use. Demonstration and return demonstration noted. RN notified. PT Audit Analyst Goals Intermediate Goals PT Intermediate Goals Time Frame: Dec 22, 2022 Roll Left & Right (QC): 6 Sit to Lying (QC): 6 Lying-Sitting on Side/Bed(QC): 6 Sit to Stand (QC): 6 Chair/Znu-ve-Gmhpj Xfer(QC): 6 Toilet Transfer (QC): 6 Car Transfer (QC): 6 Does the Patient Walk: Yes Walk 10 feet (QC): 6 Walk 50ft with 2 Turns (QC): 6 Walk 150 ft (QC): 6 Walking 10ft on Uneven Surface: 6 1 Step (curb) (QC): 6 4 Steps (QC): 4 12 Steps (QC): 4 Picking up an Object (QC): 6 Does the Pt use WC or Scooter?: No Wheel 50 feet with 2 turns (QC: 9 Type: N/A Wheel 150 feet: 9 Type: N/A PT Plan Treatment/Plan Treatment Plan: Continue Plan of Care Treatment Plan: Education, Functional Activity Laura, Functional Strength, Gait, Safety, Therapeutic Exercise, Transfers Treatment Duration: Dec 22, 2022 Frequency: 6 times per week Estimated Hrs Per Day: .25 hour per day Patient and/or Family Agrees t: Yes Time Time In: 905 Time Out: 928 DATE: Dec 04, 2022 Total Billed Treatment Time: 23 Total Billed Treatment 1 visit FA x 2 23 min NORBERT CLOUD PT Dec 04, 2022 10:22
--- NOTE | 2022-12-04 12:01 | Occupational Ther Daily Note ---
OT Current Status-Daily Note Subjective Pt sleeping in recliner, woke to name. Pt agrees to therapy. No c/o pain. Family present in room. Mental Status/Objective Patient Orientation: Person, Place, Time, Situation Attachments: IV, Oxygen ADL-Treatment Pt requests to use toilet. Assist only to manage O2 tubing while ambulating to/from bathroom using FWW. Pt independent with toileting then standing at sink to complete hand hygiene. Education on managing O2 tubing safely with family present. Pt only verbalized understanding. After session, pt sitting in recliner with call light/phone in reach. All needs met in room. Therapy Code Descriptions/Definitions Functional Lares Measure: 0=Not Assessed/NA 4=Minimal Assistance 1=Total Assistance 5=Supervision or Setup 2=Maximal Assistance 6=Modified Lares 3=Moderate Assistance 7=Complete IndependenceSCALE: Activities may be completed with or without assistive devices. 7-Jrpilfftux-fqhghki completes the activity by him/herself with no assistance from a helper. 5-Set-up or Clean-up Assistance-helper sets up or cleans up; patient completes activity. [place] assists only prior to or following the activity. 4-Supervision or Touching Assistance-helper provides verbal cues and/or touching/steadying and/or contact guard assistance as patient completes activity. Assistance may be provided throughout the activity or intermittently. 3-Partial/Moderate Assistance-helper does LESS THAN HALF the effort. [place] lifts, holds or supports trunk or limbs, but provides less than half the effort. 2-Substantial/Maximal Assistance-helper does MORE THAN HALF the effort. [place] lifts or holds trunk or limbs and provides more than half the effort. 2-Hfwsvilpf-idhezn does ALL the effort. Patient does none of the effort to complete the activity. Or, the assistance of 2 or more helpers is required for the patient to complete the activity. If activity was not attempted, code reason: 7-Patient Refused. 9-Not Applicable-not attempted and the patient did not perform the activity before the current illness, exacerbation or injury. 10-Not Attempted due to Environmental Limitations-(lack of equipment, weather restraints, etc.). 88-Not Attempted due to Medical Conditions or Safety Concerns. Toileting Hygiene (QC): 6 Toilet Transfer (QC): 6 OT Snf Goals Snf Goals Time Frame: Dec 14, 2022 Acute change in mental status: 0 Inattention: 0 Disorganized thinkin Altered level of consciousness: 0 Eating (QC): 6 Oral Hygiene (QC): 6 Toileting Hygiene (QC): 6 Shower/Bathe Self (QC): 6 Upper Body Dressing (QC): 6 Lower Body Dressing (QC): 6 On/Off Footwear (QC): 6 Additional Goals: 1-Demonstrate ADL Tasks, 2-Verbalize Understanding, 3- ImproveStrength/Laura 1=Demonstrate adherence to instructed precautions during ADL tasks. 2=Patient will verbalize/demonstrate understanding of assistive devices/ modifications for ADL. 3=Patient will improve strength/tolerance for activity to enable patient to perform ADL's. OT Education/Plan Problem List/Assessment Assessment: Decreased Activ Tolerance Pt would benefit from short term skilled OT Services in order to increase safety and independence with ADLS and functional mobility, and education on O2 management in order to maximize LOF for safe return home. Discharge Recommendations Plan/Recommendations: Continue POC Treatment Plan/Plan of Care Patient would benefit from OT for education, treatment and training to promote independence in ADL's, mobility, safety and/or upper extremity function for ADL's. Plan of Care: ADL Retraining, Functional Mobility, UE Funct Exercise/Act Treatment Duration: Dec 14, 2022 Frequency: 5 times per week Estimated Hrs Per Day: .25 hour per day Agreement: Yes Rehab Potential: Good Time Start Time: 10:49 Stop Time: 11:07 DATE: Dec 04, 2022 Total Time Billed (hr/min): 18 Billed Treatment Time 1 visit-ADL 1 (18 min) GUERLINE QUINN Dec 04, 2022 12:01
[2022-12-04] MEDS: FERROUS SULF 325 MG (IRON) TAB PO SCH (12:20)
--- NOTE | 2022-12-04 14:53 | Progress Note ---
CORAL PURDY 12/04/22 1453: Subjective Date Seen by a Provider: Dec 04, 2022 Subjective/Events-last exam 87 yo F with metastatic cancer and COPD amongst other chronic health conditions admitted 11/28 for bilateral pneumonia with sepsis after an ER visit for hypoxia and SOB. Her son and his have been at her bedside since admission; she was transitioned to a swing bed on 12/03. Her son expresses concerns that exhibited confusion yesterday though today she appears to be her normal self. She continues to have an intermittent productive cough in the morning while supine and SOB with exertion though both decreased daily. She is otherwise comfortable and denies pain. Objective Exam Last Set of Vital Signs Vital Signs Date Time Temp Pulse Resp B/P (MAP) Pulse Ox O2 Delivery O2 Flow Rate FiO2 12/04/22 08:49 95 Nasal Cannula 4.00 12/04/22 07:05 36.7 88 12/04/22 05:32 20 120/73 (89) Capillary Refill : I&O Intake and Output 12/04/22 00:00 Intake Total 880 ml Balance 880 ml Intake Oral 880 ml # Voids 4 # Bowel Movements 1 General: Alert, Oriented X3 Lungs: Clear to Auscultation Heart: Regular Rate Abdomen: Normal Bowel Sounds Psych/Mental Status: Mental Status NL, Mood NL Results Lab Laboratory Tests 12/04/22 04:38: White Blood Count 22.5H, Red Blood Count 2.89L, Hemoglobin 8.3L, Hematocrit 24L, Mean Corpuscular Volume 84, Mean Corpuscular Hemoglobin 29, Mean Corpuscular Hemoglobin Concent 34, Red Cell Distribution Width 18.0H, Platelet Count 486H, Mean Platelet Volume 8.9L, Immature Granulocyte % (Auto) 2, Neutrophils (%) (Auto) 89H, Lymphocytes (%) (Auto) 6L, Monocytes (%) (Auto) 3, Eosinophils (%) (Auto) 0, Basophils (%) (Auto) 0, Neutrophils # (Auto) 19.9H, Lymphocytes # (Auto) 1.4, Monocytes # (Auto) 0.6, Eosinophils # (Auto) 0.0, Basophils # (Auto) 0.0, Immature Granulocyte # (Auto) 0.5H, Sodium Level 133L, Potassium Level 4.4, Chloride Level 104, Carbon Dioxide Level 20L, Anion Gap 9, Blood Urea Nitrogen 13, Creatinine 0.62, Estimat Glomerular Filtration Rate 85, BUN/Creatinine Ratio 21, Glucose Level 133H, Calcium Level 8.3L, Corrected Calcium 9.3, Total Bilirubin 0.4, Aspartate Amino Transf (AST/SGOT) 41H, Alanine Aminotransferase (ALT/SGPT) 31, Alkaline Phosphatase 71, Total Protein 5.0L, Albumin 2.7L, Procalcitonin 0.15H Assessment/Plan Assessment/Plan Assess & Plan/Chief Complaint Bilateral pneumonia / Sepsis / COPD - patient on 4L by nasal canula as of 1? - Vancomycin and Cefepime maintained - albuterol ipratropium maintained Hypokaelmia / Hyponatremia / Hypocalcemia - likely related to chemotherapy and fluids - continue fluid restriction to 1200 mL Hypokalemia resolved, KCl maintained Hyponatremia - resolved, NaCl tablets maintained PO Hypocalcemia - improving, monitor monitor Anemia - monitor - ferrous sulfate maintained 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 - on Ketryuda before admission - oxycodone - ondansetron Plan: Continue to ambulate and build strength. Goal is to continue to wean oxygen dependence prior to discharge. VIKI HERRERA DO 12/05/22 0526: Subjective Time Seen by a Provider: 09:00 Subjective/Events-last exam Pt is doing a lot better Weaning off oxygen Walking with therapy pretty well Checked meds and labs Supervisory-Addendum Brief Verification & Attestation Participated in pt care: history, MDM, physical Personally performed: exam, history, MDM, supervision of care Care discussed with: Medical Student Procedures: n/a Results interpretation: Verified all documentation Verification and Attestation of Medical Student E/M Service A medical student performed and documented this service in my presence. I reviewed and verified all information documented by the medical student and made modifications to such information, when appropriate. I personally performed the physical exam and medical decision making. Viki Herrera Dec 05, 2022,05:25 CORAL PURDY Dec 04, 2022 14:53 VIKI HERRERA DO Dec 05, 2022 05:26
[2022-12-04 17:26] VITALS: BP 121/59
[2022-12-04] MEDS: LACTULOSE SYRUP 10GM/15ML (ENULOSE) 30ML UDC PO SCH (20:38)
[2022-12-04] MEDS: MONTELUKAST 10 MG (SINGULAIR) TAB PO SCH (20:39)
[2022-12-04] MEDS: ALPRAZolam 0.5 MG (XANAX) TAB PO PRN (20:39)
[2022-12-04] MEDS: ENOXAPARIN 40 MG/0.4 ML (LOVENOX) SYR SC SCH (20:39)
[2022-12-05] MEDS: CEFEPIME INJECTION 1,000 MG in NS (IVPB) 50 ML IV SCH ×2 (05:09→12:02)
[2022-12-05 05:15] LABS: BASOPHILS # (AUTO) 0.1 10^3/uL (0.0-0.1); BASOPHILS % (AUTO) 0 % (0-10); EOSINOPHILS # (AUTO) 0.1 10^3/uL (0.0-0.3); EOSINOPHILS % (AUTO) 0 % (0-10); HEMATOCRIT 26 % (35-52); HEMOGLOBIN 8.6 g/dL (11.5-16.0); LYMPHOCYTES # (AUTO) 1.3 10^3/uL (1.0-4.0); LYMPHOCYTES % (AUTO) 5 % (12-44); MEAN CORPUSCULAR HEMOGLOBIN 29 pg (25-34); MEAN CORPUSCULAR HGB CONC 34 g/dL (32-36); MEAN CORPUSCULAR VOLUME 85 fL (80-99); MEAN PLATELET VOLUME 8.6 fL (9.0-12.2); MONOCYTES # (AUTO) 0.8 10^3/uL (0.0-1.0); MONOCYTES % (AUTO) 3 % (0-12); NEUTROPHILS # (AUTO) 21.1 10^3/uL (1.8-7.8); NEUTROPHILS % (AUTO) 87 % (42-75); PLATELET COUNT 504 10^3/uL (130-400); WHITE BLOOD COUNT 24.2 10^3/uL (4.3-11.0)
[2022-12-05 05:39] VITALS: BP 132/74
[2022-12-05 06:05] LABS: BILIRUBIN,TOTAL 0.4 MG/DL (0.1-1.0); CALCIUM 8.6 MG/DL (8.5-10.1); CREATININE SERUM 0.64 MG/DL (0.60-1.30); POTASSIUM 4.6 MMOL/L (3.6-5.0); TOTAL PROTEIN 5.3 GM/DL (6.4-8.2)
[2022-12-05 06:18] LABS: ELLIPT/OVALOCYTES SLIGHT; LYMPHOCYTES % (MANUAL) 9 %; MICROCYTOSIS SLIGHT; MONOCYTES % (MANUAL) 1 %; NEUTROPHILS % (MANUAL) 90 %
[2022-12-05] MEDS: RT--FLUTICASONE/SALMETEROL 113-14 (AIRDUO RespiCLICK) IH SCH ×2 (07:40→17:54)
[2022-12-05] MEDS: RT-ALBUTEROL/IPRATROPIUM 3 ML (DUONEB) VIAL INH SCH ×3 (07:40→17:54)
[2022-12-05] MEDS: MULTIVIT W/MINERALS TAB (THERAGRAN M) PO SCH (08:02)
[2022-12-05] MEDS: ANASTROZOLE 1 MG TAB (ARIMIDEX) PO SCH (08:30)
[2022-12-05] MEDS: methylPREDNISolone 40 MG/ML (Solu-MEDROL) VIAL IV SCH (08:30)
[2022-12-05] MEDS: KCL 20 MEQ TAB (K-DUR) PO SCH ×2 (08:30→17:34)
[2022-12-05] MEDS: SODIUM CHLORIDE 1 GM TABLET PO SCH ×2 (08:30→20:03)
[2022-12-05] MEDS ORDERED: IRON SUCROSE 200 MG/10 ML (VENOFER) VIAL IV SCH (09:00)
[2022-12-05] MEDS: SENNOSIDES 8.6 MG (SENOKOT) TAB PO SCH ×2 (11:45→21:43)
[2022-12-05] MEDS: DOCUSATE SODIUM 100 MG (COLACE) CAP PO SCH ×2 (11:45→21:43)
[2022-12-05] MEDS: FERROUS SULF 325 MG (IRON) TAB PO SCH (12:02)
--- NOTE | 2022-12-05 12:19 | Progress Note ---
CORAL PURDY 12/05/22 1219: Subjective Date Seen by a Provider: Dec 05, 2022 Subjective/Events-last exam 87 yo F with metastatic cancer and COPD amongst other chronic health conditions admitted 11/28 for bilateral pneumonia with sepsis after an ER visit for hypoxia and SOB. Her son and his have been at her bedside since admission; she was transitioned to a swing bed on 12/03. Her son continues to expresses concerns of episodic confusion. At this time she is alert and coherent. She admits to intermittent productive cough in the morning (decreasing daily) and SOB with ex ertion but is otherwise comfortable and denies pain. Objective Exam Last Set of Vital Signs Vital Signs Date Time Temp Pulse Resp B/P (MAP) Pulse Ox O2 Delivery O2 Flow Rate FiO2 12/05/22 08:00 90 Nasal Cannula 4.00 12/05/22 05:39 36.8 72 18 132/74 (93) Capillary Refill : I&O Intake and Output 12/05/22 00:00 Intake Total 1080 ml Balance 1080 ml Intake Oral 1080 ml # Voids 11 # Bowel Movements 1 General: Alert, Oriented X3 Lungs: Clear to Auscultation Heart: Regular Rate Abdomen: Normal Bowel Sounds Psych/Mental Status: Mental Status NL Results Lab Laboratory Tests 12/05/22 05:00: White Blood Count 24.2H, Red Blood Count 3.01L, Hemoglobin 8.6L, Hematocrit 26L, Mean Corpuscular Volume 85, Mean Corpuscular Hemoglobin 29, Mean Corpuscular Hemoglobin Concent 34, Red Cell Distribution Width 18.3H, Platelet Count 504H, Mean Platelet Volume 8.6L, Immature Granulocyte % (Auto) 4, Neutrophils (%) (Auto) 87H, Lymphocytes (%) (Auto) 5L, Monocytes (%) (Auto) 3, Eosinophils (%) (Auto) 0, Basophils (%) (Auto) 0, Neutrophils # (Auto) 21.1H, Lymphocytes # (Aut o) 1.3, Monocytes # (Auto) 0.8, Eosinophils # (Auto) 0.1, Basophils # (Auto) 0.1, Immature Granulocyte # (Auto) 0.9H, Neutrophils % (Manual) 90, Lymphocytes % (Manual) 9, Monocytes % (Manual) 1, Microcytosis SLIGHT, Elliptocytes SLIGHT, Sodium Level 132L, Potassium Level 4.6, Chloride Level 101, Carbon Dioxide Level 23, Anion Gap 8, Blood Urea Nitrogen 11, Creatinine 0.64, Estimat Glomerular Filtration Rate 84, BUN/Creatinine Ratio 17, Glucose Level 131H, Calcium Level 8.6, Corrected Calcium 9.4, Total Bilirubin 0.4, Aspartate Amino Transf (AST/SGOT) 48H, Alanine Aminotransferase (ALT/SGPT) 39, Alkaline Phosphatase 68, Total Protein 5.3L, Albumin 3.0L, Procalcitonin 0.11H Assessment/Plan Assessment/Plan Assess & Plan/Chief Complaint Bilateral pneumonia / Sepsis / COPD - patient on 4L by nasal canula as of 12/04 - Cefepime maintained - Vancomycin completed - albuterol ipratropium maintained Hypokaelmia / Hyponatremia / Hypocalcemia - likely related to chemotherapy and fluids - fluid restriction lifted; (1200 ml restriction from 11/30-12/05) Hypokalemia resolved, KCl maintained Hyponatremia - resolved, NaCl tablets maintained PO Hypocalcemia - improving, monitor monitor Anemia - Hb stable, monitor - ferrous sulfate maintained 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 - on Ketryuda before admission - oxycodone - ondansetron Plan: Fluid restricted lifted. Patient's oncologist has been consulted and permits discharge. Plan to discharge tomorrow with home health on supplemental oxygen after completion of oxygen study. VIKI HERRERA DO 12/06/22 0504: Subjective Time Seen by a Provider: 11:00 Subjective/Events-last exam Pt is doing a lot better Down to 4L of oxygen Will need home health tomorrow Will organize discharge for tomorrow and close follow-up with me Confusion was noted by son and I told him this could occur on occasion due to advanced age and significant decline in status Supervisory-Addendum Brief Verification & Attestation Participated in pt care: history, MDM, physical Personally performed: exam, history, MDM, supervision of care Care discussed with: Medical Student Procedures: n/a Results interpretation: Verified all documentation Verification and Attestation of Medical Student E/M Service A medical student performed and documented this service in my presence. I reviewed and verified all information documented by the medical student and made modifications to such information, when appropriate. I personally performed the physical exam and medical decision making. Viki Herrera, Dec 06, 2022,05:03 CORAL PURDY Dec 05, 2022 12:19 VIKI HERRERA DO Dec 06, 2022 05:04
--- NOTE | 2022-12-05 13:39 | Physical Therapy Progress Note ---
Therapy Progress Note Attempted PT treatment. Patient is in bed sleeping, family states they would like to hold therapy this afternoon so patient can rest. They say patient is very fatigued due to a lot of activity and that later on tonight they will be able to get patient up. Will check back tomorrow. MARCELLO PICKENS PT Dec 05, 2022 13:39
--- NOTE | 2022-12-05 13:53 | Occupational Ther Daily Note ---
OT Current Status-Daily Note Subjective Pt sleeping in bed. Son states he would like to hold therapy this afternoon so patient can rest. He stated that pt has been up walking and moving around all morning. Son also stated that pt may discharge tomorrow. Mental Status/Objective Patient Orientation: Person, Place, Time, Situation Attachments: IV, Oxygen ADL-Treatment Therapy Code Descriptions/Definitions Functional [place] Measure: 0=Not Assessed/NA 4=Minimal Assistance 1=Total Assistance 5=Supervision or Setup 2=Maximal Assistance 6=Modified [place] 3=Moderate Assistance 7=Complete IndependenceSCALE: Activities may be completed with or without assistive devices. 6-Llziyfleal-anyqluv completes the activity by him/herself with no assistance from a helper. 5-Set-up or Clean-up Assistance-helper sets up or cleans up; patient completes activity. [place] assists only prior to or following the activity. 4-Supervision or Touching Assistance-helper provides verbal cues and/or touching/steadying and/or contact guard assistance as patient completes activity . Assistance may be provided throughout the activity or intermittently. 3-Partial/Moderate Assistance-helper does LESS THAN HALF the effort. [place] lifts, holds or supports trunk or limbs, but provides less than half the effort. 2-Substantial/Maximal Assistance-helper does MORE THAN HALF the effort. [place] lifts or holds trunk or limbs and provides more than half the effort. 8-Rhixhacmo-wyarwl does ALL the effort. Patient does none of the effort to complete the activity. Or, the assistance of 2 or more helpers is required for the patient to complete the activity. If activity was not attempted, code reason: 7-Patient Refused. 9-Not Applicable-not attempted and the patient did not perform the activity before the current illness, exacerbation or injury. 10-Not Attempted due to Environmental Limitations-(lack of equipment, weather restraints, etc.). 88-Not Attempted due to Medical Conditions or Safety Concerns. Other Treatment Discussed with family about home environment and O2 tubing for safety issues. Family stated that pt is aware of and able to manipulate tubing throughout the day then with evening and night pt does not remember that she has O2 on or how to manipulate tubing. Recommendations of using colorful tape or equivalent to make tubing stand out. Recommendations on what to look for with Life Alert and where to find tub seats. Family acknowledged understanding of topics. After therapy, pt sitting in recliner with call light/phone in reach. All needs met in room. OT Graining Operator Goals Care Home Goals Time Frame: Dec 14, 2022 Acute change in mental status: 0 Inattention: 0 Disorganized thinkin Altered level of consciousness: 0 Eating (QC): 6 Oral Hygiene (QC): 6 Toileting Hygiene (QC): 6 Shower/Bathe Self (QC): 6 Upper Body Dressing (QC): 6 Lower Body Dressing (QC): 6 On/Off Footwear (QC): 6 Additional Goals: 1-Demonstrate ADL Tasks, 2-Verbalize Understanding, 3- ImproveStrength/Laura 1=Demonstrate adherence to instructed precautions during ADL tasks. 2=Patient will verbalize/demonstrate understanding of assistive devices/modifications for ADL. 3=Patient will improve strength/tolerance for activity to enable patient to perform ADL's. OT Education/Plan Problem List/Assessment Assessment: Decreased Activ Tolerance Pt would benefit from short term skilled OT Services in order to increase safety and independence with ADLS and functional mobility, and education on O2 management in order to maximize LOF for safe return home. Discharge Recommendations Plan/Recommendations: Continue POC Treatment Plan/Plan of Care Patient would benefit from OT for education, treatment and training to promote independence in ADL's, mobility, safety and/or upper extremity function for ADL's. Plan of Care: ADL Retraining, Functional Mobility, UE Funct Exercise/Act Treatment Duration: Dec 14, 2022 Frequency: 5 times per week Estimated Hrs Per Day: .25 hour per day Agreement: Yes Rehab Potential: Good Time Start Time: 13:05 Stop Time: 13:20 DATE: Dec 05, 2022 Total Time Billed (hr/min): 15 Billed Treatment Time 1 visit-FA 1 (15 min) GUERLINE QUINN Dec 05, 2022 13:53
[2022-12-05 18:00] VITALS: BP 123/59
[2022-12-05] MEDS: MONTELUKAST 10 MG (SINGULAIR) TAB PO SCH (20:02)
[2022-12-05] MEDS: ALPRAZolam 0.5 MG (XANAX) TAB PO PRN (20:03)
[2022-12-05] MEDS: ENOXAPARIN 40 MG/0.4 ML (LOVENOX) SYR SC SCH (20:03)
[2022-12-05] MEDS: LACTULOSE SYRUP 10GM/15ML (ENULOSE) 30ML UDC PO SCH (21:43)
[2022-12-06 05:01] VITALS: BP 127/66
[2022-12-06] MEDS: MULTIVIT W/MINERALS TAB (THERAGRAN M) PO SCH (05:25)
[2022-12-06 06:33] LABS: POTASSIUM 4.1 MMOL/L (3.6-5.0)
[2022-12-06 06:34] LABS: CALCIUM 8.7 MG/DL (8.5-10.1)
[2022-12-06 06:35] LABS: BASOPHILS # (AUTO) 0.1 10^3/uL (0.0-0.1); BASOPHILS % (AUTO) 0 % (0-10); EOSINOPHILS # (AUTO) 0.6 10^3/uL (0.0-0.3); EOSINOPHILS % (AUTO) 3 % (0-10); HEMATOCRIT 27 % (35-52); HEMOGLOBIN 9.2 g/dL (11.5-16.0); LYMPHOCYTES # (AUTO) 1.8 10^3/uL (1.0-4.0); LYMPHOCYTES % (AUTO) 9 % (12-44); MEAN CORPUSCULAR HEMOGLOBIN 29 pg (25-34); MEAN CORPUSCULAR HGB CONC 34 g/dL (32-36); MEAN CORPUSCULAR VOLUME 87 fL (80-99); MEAN PLATELET VOLUME 9.2 fL (9.0-12.2); MONOCYTES % (AUTO) 5 % (0-12); NEUTROPHILS # (AUTO) 17.3 10^3/uL (1.8-7.8); NEUTROPHILS % (AUTO) 80 % (42-75); PLATELET COUNT 500 10^3/uL (130-400); TOTAL PROTEIN 5.3 GM/DL (6.4-8.2); WHITE BLOOD COUNT 21.7 10^3/uL (4.3-11.0)
[2022-12-06 06:37] LABS: BILIRUBIN,TOTAL 0.4 MG/DL (0.1-1.0)
[2022-12-06 06:39] LABS: CREATININE SERUM 0.63 MG/DL (0.60-1.30)
[2022-12-06] MEDS: KCL 20 MEQ TAB (K-DUR) PO SCH (09:22)
[2022-12-06] MEDS: SENNOSIDES 8.6 MG (SENOKOT) TAB PO SCH (09:22)
[2022-12-06] MEDS: ANASTROZOLE 1 MG TAB (ARIMIDEX) PO SCH (09:22)
[2022-12-06] MEDS: SODIUM CHLORIDE 1 GM TABLET PO SCH (09:22)
[2022-12-06] MEDS: DOCUSATE SODIUM 100 MG (COLACE) CAP PO SCH (09:23)
--- NOTE | 2022-12-06 10:52 | Physical Therapy Daily Note ---
PT Daily Note-Current Subjective Patient agrees to PT. She and family report she is going home on this date. Pain Section J - Health Conditions 1. Rarely or not at all 2. Occasionally 3. Frequently 4. Almost constantly 8. Unable to answer Pain Effect on Sleep: 1 Pain Interference with Therapy: 1 Pain Interference w/Day-to-Day: 1 Mental Status Patient Orientation: Normal For Age Attachments: Oxygen (3L NC continuous) Transfers SCALE: Activities may be completed with or without assistive devices. 2-Nwmcwhsrmh-gpwoglo completes the activity by him/herself with no assistance from a helper. 5-Set-up or Clean-up Assistance-helper sets up or cleans up; patient completes activity. [place] assists only prior to or following the activity. 4-Supervision or Touching Assistance-helper provides verbal cues and/or touching/steadying and/or contact guard assistance as patient completes activity. Assistance may be provided throughout the activity or intermittently. 3-Partial/Moderate Assistance-helper does LESS THAN HALF the effort. [place] lifts, holds or supports trunk or limbs, but provides less than half the effort. 2-Substantial/Maximal Assistance-helper does MORE THAN HALF the effort. [place] lifts or holds trunk or limbs and provides more than half the effort. 4-Fsibvlgun-pxplqw does ALL the effort. Patient does none of the effort to complete the activity. Or, the assistance of 2 or more helpers is required for the patient to complete the activity. If activity was not attempted, code reason: 7-Patient Refused. 9-Not Applicable-not attempted and the patient did not perform the activity before the current illness, exacerbation or injury. 10-Not Attempted due to Environmental Limitations-(lack of equipment, weather restraints, etc.). 88-Not Attempted due to Medical Conditions or Safety Concerns. Roll Left & Right (QC): 6 Sit to Lying (QC): 6 Lying to Sitting/Side of Bed(Q: 6 Sit to Stand (QC): 6 Chair/Ndu-md-Hkwcv Xfer(QC): 6 Toilet Transfer (QC): 6 Car Transfer (QC): 6 Gait Training Distance: >500' Walk 10 feet (QC): 6 Walk 50 ft with 2 Turns(QC): 6 Walk 150 ft (QC): 6 Walking 10ft/uneven surface-QC: 6 Gait Assistive Device: FWW Wheelchair Training Does the Pt Use a Wheelchair?: No Wheel 50 ft with 2 turns (QC): 9 Wheel 150 ft (QC): 9 Stair Training Stair Training: Handrails/: 2 handrails #of Steps: 12 1 Step (curb) (QC): 4 4 Steps (QC): 4 12 Steps (QC): 4 reciprocal pattern ascending, step to descending Balance Picking up an Object (QC): 6 Assessment Patient has progressed with all gross motor skills and will dismiss to home with family and home health per report. Patient has attained all functional goals. Education with patient and family on O2 tubing negotiation and safe concerns. Family and patient voice understanding and report they will apply colored tape to home O2 tubing for patient to be able to see to address safety concerns. PT Group Home Goals Group Home Goals PT Group Home Goals Time Frame: Dec 22, 2022 Roll Left & Right (QC): 6 Sit to Lying (QC): 6 Lying-Sitting on Side/Bed(QC): 6 Sit to Stand (QC): 6 Chair/Olc-bn-Lxfba Xfer(QC): 6 Toilet Transfer (QC): 6 Car Transfer (QC): 6 Does the Patient Walk: Yes Walk 10 feet (QC): 6 Walk 50ft with 2 Turns (QC): 6 Walk 150 ft (QC): 6 Walking 10ft on Uneven Surface: 6 1 Step (curb) (QC): 6 4 Steps (QC): 4 12 Steps (QC): 4 Picking up an Object (QC): 6 Does the Pt use WC or Scooter?: No Wheel 50 feet with 2 turns (QC: 9 Type: N/A Wheel 150 feet: 9 Type: N/A PT Plan Treatment/Plan Treatment Plan: Discontinue PT, goals met Treatment Plan: Education, Functional Activity Laura, Functional Strength, Gait, Safety, Therapeutic Exercise, Transfers Treatment Duration: Dec 22, 2022 Frequency: 6 times per week Estimated Hrs Per Day: .25 hour per day Patient and/or Family Agrees t: Yes Time Time In: 1020 Time Out: 1030 DATE: Dec 06, 2022 Total Billed Treatment Time: 10 Total Billed Treatment 1 visit FA 10 min NORBERT CLOUD PT Dec 06, 2022 10:52
[2022-12-06] MEDS: RT--FLUTICASONE/SALMETEROL 113-14 (AIRDUO RespiCLICK) IH SCH (10:53)
--- NOTE | 2022-12-06 10:53 | Therapy Team Discharge Summary ---
Therapy Discharge Summary Discharge Recommendations Date of Discharge Physical Therapy Patient has progressed with all gross motor skills and will dismiss to home with family and home health per report. Patient has attained all functional goals. Education with patient and family on O2 tubing negotiation and safe concerns. Family and patient voice understanding and report they will apply colored tape to home O2 tubing for patient to be able to see to address safety concerns. Roll Left to Right (QC): 6 Sit to Lying (QC): 6 Lying to Sitting/Side of Bed(Q: 6 Sit to Stand (QC): 6 Chair/Yvw-rm-Tngwe Xfer(QC): 6 Toilet Transfer (QC): 6 Car Transfer (QC): 6 Does the Patient Walk: Yes Mode of Locomotion: Walk Anticipated Mode of Locomotion: Walk Walk 10 feet (QC): 6 Walk 50 ft with 2 Turns(QC): 6 Walk 150 ft (QC): 6 Walking 10ft on uneven surface: 6 Distance: >500' Gait Assistive Device: FWW Does the Pt Use a Wheelchair: No Wheel 50 ft with 2 turns (QC): 9 Wheel 150 ft (QC): 9 Type of Wheelchair: N/A #of Steps: 12 1 Step (curb) (QC): 4 4 Steps (QC): 4 12 Steps (QC): 4 Balance Sitting Static: Normal Balance Sitting Dynamic: Normal Balance-Standing Static: Normal Picking up an Object (QC): 6 Occupational Therapy Decreased Activ Tolerance Eating (QC): 6 Oral Hygiene (QC): 6 Shower/Bathe Self (QC): 4 (SBA) Upper Body Dressing (QC): 5 Lower Body Dressing (QC): 4 (SBA) On/Off Footwear (QC): 6 Toileting Hygiene (QC): 6 PT Long-Term Goals Casing Finisher And Stuffer Goals PT Casing Finisher And Stuffer Goals Time Frame: Dec 22, 2022 Roll Left to Right (QC): 6 Sit to Lying (QC): 6 Lying-Sitting on Side/Bed(QC): 6 Sit to Stand (QC): 6 Chair/Xcr-rv-Hqtjv Xfer(QC): 6 Toilet/Commode Transfer (QC): 6 Car Transfer (QC): 6 Does the Patient Walk: Yes Walk 10 feet (QC): 6 Walk 10ft-Uneven Surface(QC): 6 Walk 50ft with 2 Turns (QC): 6 Walk 150 ft (QC): 6 Does the Pt use WC or Scooter?: No Wheel 50 feet with 2 turns (QC: 9 Type: N/A Wheel 150 feet: 9 Type: N/A 1 Step (curb) (QC): 6 4 Steps (QC): 4 12 Steps (QC): 4 Picking up an Object (QC): 6 OT Casing Finisher And Stuffer Goals Casing Finisher And Stuffer Goals Time Frame: Dec 14, 2022 Acute change in mental status: 0 Inattention: 0 Disorganized thinkin Altered level of consciousness: 0 Eating (QC): 6 Oral Hygiene (QC): 6 Toileting Hygiene (QC): 6 Shower/Bathe Self (QC): 6 Upper Body Dressing (QC): 6 Lower Body Dressing (QC): 6 On/Off Footwear (QC): 6 Additional Goals: 1-Demonstrate ADL Tasks, 2-Verbalize Understanding, 3- ImproveStrength/Laura 1=Demonstrate adherence to instructed precautions during ADL tasks. 2=Patient will verbalize/demonstrate understanding of assistive devices/modifications for ADL. 3=Patient will improve strength/tolerance for activity to enable patient to perform ADL's. NORBERT CLOUD PT Dec 06, 2022 10:53
[2022-12-06] MEDS: RT-ALBUTEROL/IPRATROPIUM 3 ML (DUONEB) VIAL INH SCH (10:54)
--- NOTE | 2022-12-06 11:59 | Diagnostic Imaging Report ---
INDICATION: History of pneumonia. Follow-up. COMPARISON: 12/03/2022 FINDINGS: Single frontal radiograph view of the chest was obtained and demonstrates persistent, but improved bilateral infiltrate, right greater than left. No large effusion or pneumothorax is seen. Cardiac silhouette and pulmonary vasculature stable. Right internal jugular Port-A-Cath is again identified with tip in the SVC. Osseous structures show no gross acute abnormalities. IMPRESSION: 1. Persistent, but improved bilateral infiltrate. Continued follow-up to resolution is advised. Dictated by: Dictated on workstation # [id number]
--- NOTE | 2022-12-06 11:59 | Occupational Ther Daily Note ---
OT Current Status-Daily Note Subjective Pt seated in recliner, 2 family members present. Pt declined OT services on this date, as she is scheduled to discharge home. ADL-Treatment Therapy Code Descriptions/Definitions Functional [place] Measure: 0=Not Assessed/NA 4=Minimal Assistance 1=Total Assistance 5=Supervision or Setup 2=Maximal Assistance 6=Modified [place] 3=Moderate Assistance 7=Complete IndependenceSCALE: Activities may be completed with or without assistive devices. 6-Wivlurlcms-ehtddqp completes the activity by him/herself with no assistance from a helper. 5-Set-up or Clean-up Assistance-helper sets up or cleans up; patient completes activity. [place] assists only prior to or following the activity. 4-Supervision or Touching Assistance-helper provides verbal cues and/or touching/steadying and/or contact guard assistance as patient completes activity. Assistance may be provided throughout the activity or intermittently. 3-Partial/Moderate Assistance-helper does LESS THAN HALF the effort. [place] lifts, holds or supports trunk or limbs, but provides less than half the effort. 2-Substantial/Maximal Assistance-helper does MORE THAN HALF the effort. [place] lifts or holds trunk or limbs and provides more than half the effort. 1-Ynjogzdoa-kkzmcu does ALL the effort. Patient does none of the effort to complete the activity. Or, the assistance of 2 or more helpers is required for the patient to complete the activity. If activity was not attempted, code reason: 7-Patient Refused. 9-Not Applicable-not attempted and the patient did not perform the activity before the current illness, exacerbation or injury. 10-Not Attempted due to Environmental Limitations-(lack of equipment, weather restraints, etc.). 88-Not Attempted due to Medical Conditions or Safety Concerns. Eating (QC): 6 Oral Hygiene (QC): 6 Shower/Bathe Self (QC): 5 Upper Body Dressing (QC): 5 Lower Body Dressing (QC): 5 On/Off Footwear: 6 Toileting Hygiene (QC): 6 Toilet Transfer (QC): 6 Other Treatment Pt in recliner, declined OT services on this date due to scheduled d/c home. OT, pt and family discussed concerns with pt discharging home, they report no concerns during the day. Pt's family indicates pt forgets she has O2 at night and forgets how to manage the tubing. Pt indicates she will have assistance at home when she discharges. No ADLs complete on this date due to pt refusal, QC scores obtained per pt/family report. After visit, pt in recliner, call light in reach and all needs met, family present. OT Acute Care Nurse Goals Acute Care Nurse Goals Time Frame: Dec 14, 2022 Acute change in mental status: 0 Inattention: 0 Disorganized thinkin Altered level of consciousness: 0 Eating (QC): 6 (met) Oral Hygiene (QC): 6 (met) Toileting Hygiene (QC): 6 (met) Shower/Bathe Self (QC): 6 (not met) Upper Body Dressing (QC): 6 (not met) Lower Body Dressing (QC): 6 (not met) On/Off Footwear (QC): 6 (met) Additional Goals: 1-Demonstrate ADL Tasks, 2-Verbalize Understanding, 3- ImproveStrength/Laura 1=Demonstrate adherence to instructed precautions during ADL tasks. 2=Patient will verbalize/demonstrate understanding of assistive devices/modifications for ADL. 3=Patient will improve strength/tolerance for activity to enable patient to perform ADL's. OT Education/Plan Problem List/Assessment Assessment: Decreased Activ Tolerance, Decreased UE Strength, Impaired I ADL's Pt would benefit from short term skilled OT Services in order to increase safety and independence with ADLS and functional mobility, and education on O2 management in order to maximize LOF for safe return home. Discharge Recommendations Plan/Recommendations: Continue POC Treatment Plan/Plan of Care Patient would benefit from OT for education, treatment and training to promote independence in ADL's, mobility, safety and/or upper extremity function for ADL 's. Plan of Care: ADL Retraining, Functional Mobility, UE Funct Exercise/Act Treatment Duration: Dec 14, 2022 Frequency: 5 times per week Estimated Hrs Per Day: .25 hour per day Agreement: Yes Rehab Potential: Good Time Start Time: 11:05 Stop Time: 11:10 DATE: Dec 06, 2022 Total Time Billed (hr/min): 5 Billed Treatment Time 1, refusal ANTHONY VALDEZ OT Dec 06, 2022 11:59
--- NOTE | 2022-12-06 12:01 | Therapy Team Discharge Summary ---
Therapy Discharge Summary Discharge Recommendations Date of Discharge Therapy D/C Recommendations: Home w/ Family Support Physical Therapy Roll Left to Right (QC): 6 Sit to Lying (QC): 6 Lying to Sitting/Side of Bed(Q: 6 Sit to Stand (QC): 6 Chair/Lup-qe-Odxcb Xfer(QC): 6 Toilet Transfer (QC): 6 Car Transfer (QC): 6 Does the Patient Walk: Yes Mode of Locomotion: Walk Anticipated Mode of Locomotion: Walk Walk 10 feet (QC): 6 Walk 50 ft with 2 Turns(QC): 6 Walk 150 ft (QC): 6 Walking 10ft on uneven surface: 6 Distance: >500' Gait Assistive Device: FWW Does the Pt Use a Wheelchair: No Wheel 50 ft with 2 turns (QC): 9 Wheel 150 ft (QC): 9 Type of Wheelchair: N/A #of Steps: 12 1 Step (curb) (QC): 4 4 Steps (QC): 4 12 Steps (QC): 4 Balance Sitting Static: Normal Balance Sitting Dynamic: Normal Balance-Standing Static: Normal Picking up an Object (QC): 6 Occupational Therapy Pt admitted to [facility] with PNA. At [facility], pt was independent with ADLS and functional mobility, no AD. Upon initial evaluation, pt was independent with eating, oral care and footwear, set up with UE dressing and SBA showering, LE dressing and toileting. OT tx focused on increasing BUE strength and activity tolerance, increasing safety and independence with ADLs and functional mobility, and education on safety with O2 tubing. Pt made good progress towards goals, attaining all LTGs except showering, UE/LE dressing. Pt scheduled to discharge from hospital with family support today. D/C from OT. Decreased Activ Tolerance, Decreased UE Strength, Impaired I ADL's Eating (QC): 6 Oral Hygiene (QC): 6 Shower/Bathe Self (QC): 5 Upper Body Dressing (QC): 5 Lower Body Dressing (QC): 5 On/Off Footwear (QC): 6 Toileting Hygiene (QC): 6 PT Retirement Goals Software Installer Goals PT Retirement Goals Time Frame: Dec 22, 2022 Roll Left to Right (QC): 6 Sit to Lying (QC): 6 Lying-Sitting on Side/Bed(QC): 6 Sit to Stand (QC): 6 Chair/Yyv-qq-Ttkus Xfer(QC): 6 Toilet/Commode Transfer (QC): 6 Car Transfer (QC): 6 Does the Patient Walk: Yes Walk 10 feet (QC): 6 Walk 10ft-Uneven Surface(QC): 6 Walk 50ft with 2 Turns (QC): 6 Walk 150 ft (QC): 6 Does the Pt use WC or Scooter?: No Wheel 50 feet with 2 turns (QC: 9 Type: N/A Wheel 150 feet: 9 Type: N/A 1 Step (curb) (QC): 6 4 Steps (QC): 4 12 Steps (QC): 4 Picking up an Object (QC): 6 OT Retirement Goals Retirement Goals Time Frame: Dec 14, 2022 Acute change in mental status: 0 Inattention: 0 Disorganized thinkin Altered level of consciousness: 0 Eating (QC): 6 (met) Oral Hygiene (QC): 6 (met) Toileting Hygiene (QC): 6 (met) Shower/Bathe Self (QC): 6 (not met) Upper Body Dressing (QC): 6 (not met) Lower Body Dressing (QC): 6 (not met) On/Off Footwear (QC): 6 (met) Additional Goals: 1-Demonstrate ADL Tasks, 2-Verbalize Understanding, 3- ImproveStrength/Laura 1=Demonstrate adherence to instructed precautions during ADL tasks. 2=Patient will verbalize/demonstrate understanding of assistive device s/modifications for ADL. 3=Patient will improve strength/tolerance for activity to enable patient to perform ADL's. ANTHONY VALDEZ OT Dec 06, 2022 12:01
[2022-12-06] MEDS: FERROUS SULF 325 MG (IRON) TAB PO SCH (12:02)
[2022-12-06] MEDS ORDERED: AMLO-250 PO (12:13)
[2022-12-06] MEDS ORDERED: MONT-40 PO (12:14)
[2022-12-06] MEDS ORDERED: LOSA25TA41 PO (12:14)
--- NOTE | 2022-12-06 12:19 | D/C HH Face to Face Order ---
D/C Face to Face Orders Reconcile Patient Problems Problems Reviewed?: Yes Instructions for Patient Via [facility], Patient Instructions/FollowUp: Dr Wiggins in 1 week Physician to follow Patient: Feliciano Discharge Diet for Home: No Restrictions Patient Problems: Debility Patient Data-Allergies,Ht & Wt Patient Allergies: Coded Allergies: Penicillins (Verified Allergy, Unknown, EDEMA YEARS AGO, UNKNOWN IF ANY OTHER REACTION, 10/04/22) Height (Feet): 5 Height (Inches): 5.00 Weight (Pounds): 150 Weight (Ounces): 0.0 Home Health Need/Face to Face Date of Face to Face: Dec 06, 2022 Clinical Findings: Generalized weakness and fatigue, Instability, Muscle weakness, Shortness of breath I have seen Pt vady-kx-vxqf: Yes Discharged To: Home Diagnosis/Conditions: Debility Patient is Homebound due to: Shortness of breath/distress Homebound Status Due to the above stated illness, injury or surgical procedure (medical condition or diagnosis) and associated clinical findings, the patient is homebound because of his/her inability to leave home except with aid of a supportive device and/or person AND leaving the home requires a considerable and taxing effort or is medically contraindicated. Pt req the following assistanc: Walker Home Health Nursing Orders Home Health Services Order: Nursing Services, Quality Control Engineering Technician-Evaluate & Treat, Physical Therapy-Evaluate & Treat Certify Stmt I certify that this patient is under my care and that I, a nurse practitioner or a physician; a account assistant working with me, had a face to face encounter that - meets the physician face to face encounter requirements with this patient as dated. JEN WIGGINS DO Dec 06, 2022 12:19
--- NOTE | 2022-12-06 12:20 | Discharge Summary ---
Diagnosis/Chief Complaint Date of Admission Dec 03, 2022 at 13:10 Date of Discharge Discharge Date: Dec 06, 2022 Discharge Diagnosis Bilateral pneumonia / Sepsis / COPD - patient on 4L by nasal canula as of 12/04 - Cefepime maintained - Vancomycin completed - albuterol ipratropium maintained Hypokaelmia / Hyponatremia / Hypocalcemia - likely related to chemotherapy and fluids - fluid restriction lifted; (1200 ml restriction from 11/30-12/05) Hypokalemia resolved, KCl maintained Hyponatremia - resolved, NaCl tablets maintained PO Hypocalcemia - improving, monitor monitor Anemia - Hb stable, monitor - ferrous sulfate maintained 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 - on Ketryuda before admission - oxycodone - ondansetron Discharge Summary Discharge Physical Examination Allergies: Coded Allergies: Penicillins (Verified Allergy, Unknown, EDEMA YEARS AGO, UNKNOWN IF ANY OTHER REACTION, 10/04/22) Vitals & I&Os Vital Signs Date Time Temp Pulse Resp B/P (MAP) Pulse Ox O2 Delivery O2 Flow Rate FiO2 12/06/22 10:54 97 Nasal Cannula 3.00 12/06/22 05:01 36.4 87 20 127/66 (86) General Appearance: Alert, Oriented X3, Cooperative Respiratory: Clear to Auscultation Cardiovascular: Regular Rate Psych/Mental Status: Mental Status NL Hospital Course Was the Problem List Reviewed?: Yes 87 yo F with advanced cancer, immunosuppressed status and COPD admitted on 11/28 for bilateral pneumonia causing sepsis (HR 106 and WBC 13) and hypoxia (78% on room air) after a visit to the ER for hypoxia, weakness and SOB. She is a patient at the cancer center who had been receiving Keytruda for breast cancer with metastasis to the abdomen. On admission she was stable and placed on med-s urg; 3L of supplemental oxygen by nasal canula, IV vancomycin, IV Zosin, IV solumedrol and home medications were started. Her hypoxia corrected thereafter but her oxygen requirements increased to 5-8L from 11/29 -12/03; she was weaned to 4L on 12/04 and 3L on 12/05. On 11/29, hypokalemia, hyponatremia, hypocalcemia were noted; KCl, NaCl tablets, and fluid restriction to 1200 mL were initiated. Hypokalemia/hypocalcemia resolved and hypontramia improved to 132 on 12/02 and remained stable thereafter. Anemia consistent with the patient's baseline remained stable with ferrous sulfate 325 (11/29-12/03) and IV iron sucrose (12/03 - 12/06). Leukocytosis persisted, peaking on 12/05 at 24.4 and declining to 21.7 by 12/06. Throughout her stay, the patient admitted to a productive cough SOB that diminished daily; otherwise she was alert, comfortable and denied pain. On 12/05 the patient's oncologist deemed her stable enough for discharge and fluid restriction was lifted. On 12/06 patient completed antibiotics and CXR showed persistent, but improved bilateral infiltrate; the patient and her family were provided a 1-week follow up with PCP and instructed to be conversative with fluid intake. She was discharged with home health and 3L of supplemental oxygen to be used during exertion. CORAL PURDY Labs (last 24 hrs) Laboratory Tests 12/04/22 04:38: White Blood Count 22.5H, Red Blood Count 2.89L, Hemoglobin 8.3L, Hematocrit 24L, Mean Corpuscular Volume 84, Mean Corpuscular Hemoglobin 29, Mean Corpuscular Hemoglobin Concent 34, Red Cell Distribution Width 18.0H, Platelet Count 486H, Mean Platelet Volume 8.9L, Immature Granulocyte % (Auto) 2, Neutrophils (%) (Auto) 89H, Lymphocytes (%) (Auto) 6L, Monocytes (%) (Auto) 3, Eosinophils (%) (Auto) 0, Basophils (%) (Auto) 0, Neutrophils # (Auto) 19.9H, Lymphocytes # (Auto) 1.4, Monocytes # (Auto) 0.6, Eosinophils # (Auto) 0.0, Basophils # (Auto) 0.0, Immature Granulocyte # (Auto) 0.5H, Sodium Level 133L, Potassium Level 4.4, Chloride Level 104, Carbon Dioxide Level 20L, Anion Gap 9, Blood Urea Nitrogen 13, Creatinine 0.62, Estimat Glomerular Filtration Rate 85, BUN/Creatinine Ratio 21, Glucose Level 133H, Calcium Level 8.3L, Corrected Calcium 9.3, Total Bilirubin 0.4, Aspartate Amino Transf (AST/SGOT) 41H, Alanine Aminotransferase (ALT/SGPT) 31, Alkaline Phosphatase 71, Total Protein 5.0L, Albumin 2.7L, Procalcitonin 0.15H 12/05/22 05:00: White Blood Count 24.2H, Red Blood Count 3.01L, Hemoglobin 8.6L, Hematocrit 26L, Mean Corpuscular Volume 85, Mean Corpuscular Hemoglobin 29, Mean Corpuscular Hemoglobin Concent 34, Red Cell Distribution Width 18.3H, Platelet Count 504H, Mean Platelet Volume 8.6L, Immature Granulocyte % (Auto) 4, Neutrophils (%) (Auto) 87H, Lymphocytes (%) (Auto) 5L, Monocytes (%) (Auto) 3, Eosinophils (%) (Auto) 0, Basophils (%) (Auto) 0, Neutrophils # (Auto) 21.1H, Lymphocytes # (Auto) 1.3, Monocytes # (Auto) 0.8, Eosinophils # (Auto) 0.1, Basophils # (Auto) 0.1, Immature Granulocyte # (Auto) 0.9H, Sodium Level 132L, Potassium Level 4.6, Chloride Level 101, Carbon Dioxide Level 23, Anion Gap 8, Blood Urea Nitrogen 11, Creatinine 0.64, Estimat Glomerular Filtration Rate 84, BUN/Creatinine Ratio 17, Glucose Level 131H, Calcium Level 8.6, Corrected Calcium 9.4, Total Bilirubin 0.4, Aspartate Amino Transf (AST/SGOT) 48H, Alanine Aminotransferase (ALT/SGPT) 39, Alkaline Phosphatase 68, Total Protein 5.3L, Albumin 3.0L, Procalcitonin 0.11H, Neutrophils % (Manual) 90, Lymphocytes % (Manual) 9, Monocytes % (Manual) 1, Microcytosis SLIGHT, Elliptocytes SLIGHT 12/06/22 06:10: White Blood Count 21.7H, Red Blood Count 3.13L, Hemoglobin 9.2L, Hematocrit 27L, Mean Corpuscular Volume 87, Mean Corpuscular Hemoglobin 29, Mean Corpuscular Hemoglobin Concent 34, Red Cell Distribution Width 18.6H, Platelet Count 500H, Mean Platelet Volume 9.2, Immature Granulocyte % (Auto) 4, Neutrophils (%) (Auto) 80H, Lymphocytes (%) (Auto) 9L, Monocytes (%) (Auto) 5, Eosinophils (%) (Auto) 3, Basophils (%) (Auto) 0, Neutrophils # (Auto) 17.3H, Lymphocytes # (Auto) 1.8, Monocytes # (Auto) 1.0, Eosinophils # (Auto) 0.6H, Basophils # (Auto) 0.1, Immature Granulocyte # (Auto) 1.0H, Sodium Level 132L, Potassium Level 4.1, Chloride Level 97L, Carbon Dioxide Level 25, Anion Gap 10, Blood Urea Nitrogen 7, Creatinine 0.63, Estimat Glomerular Filtration Rate 85, BUN/Creatinine Ratio 11, Glucose Level 73, Calcium Level 8.7, Corrected Calcium 9.5, Total Bilirubin 0.4, Aspartate Amino Transf (AST/SGOT) 43H, Alanine Aminotransferase (ALT/SGPT) 44, Alkaline Phosphatase 73, Total Protein 5.3L, Albumin 3.0L Pending Labs Laboratory Tests 12/04/22 04:38: White Blood Count 22.5, Red Blood Count 2.89, Hemoglobin 8.3, Hematocrit 24, Mean Corpuscular Volume 84, Mean Corpuscular Hemoglobin 29, Mean Corpuscular Hemoglobin Concent 34, Red Cell Distribution Width 18.0, Platelet Count 486, Mean Platelet Volume 8.9, Immature Granulocyte % (Auto) 2, Neutrophils (%) (Auto) 89, Lymphocytes (%) (Auto) 6, Monocytes (%) (Auto) 3, Eosinophils (%) (Auto) 0, Basophils (%) (Auto) 0, Neutrophils # (Auto) 19.9, Lymphocytes # (Auto) 1.4, Monocytes # (Auto) 0.6, Eosinophils # (Auto) 0.0, Basophils # (Auto) 0.0, Immature Granulocyte # (Auto) 0.5, Sodium Level 133, Potassium Level 4.4, Chloride Level 104, Carbon Dioxide Level 20, Anion Gap 9, Blood Urea Nitrogen 13, Creatinine 0.62, Estimat Glomerular Filtration Rate 85, BUN/Creatinine Ratio 21, Glucose Level 133, Calcium Level 8.3, Corrected Calcium 9.3, Total Bilirubin 0.4, Aspartate Amino Transf (AST/SGOT) 41, Alanine Aminotransferase (ALT/SGPT) 31, Alkaline Phosphatase 71, Total Protein 5.0, Albumin 2.7, Procalcitonin 0.15 12/05/22 05:00: White Blood Count 24.2, Red Blood Count 3.01, Hemoglobin 8.6, Hematocrit 26, Mean Corpuscular Volume 85, Mean Corpuscular Hemoglobin 29, Mean Corpuscular Hemoglobin Concent 34, Red Cell Distribution Width 18.3, Platelet Count 504, Mean Platelet Volume 8.6, Immature Granulocyte % (Auto) 4, Neutrophils (%) (Auto) 87, Lymphocytes (%) (Auto) 5, Monocytes (%) (Auto) 3, Eosinophils (%) (A uto) 0, Basophils (%) (Auto) 0, Neutrophils # (Auto) 21.1, Lymphocytes # (Auto) 1.3, Monocytes # (Auto) 0.8, Eosinophils # (Auto) 0.1, Basophils # (Auto) 0.1, Immature Granulocyte # (Auto) 0.9, Sodium Level 132, Potassium Level 4.6, Chloride Level 101, Carbon Dioxide Level 23, Anion Gap 8, Blood Urea Nitrogen 11, Creatinine 0.64, Estimat Glomerular Filtration Rate 84, BUN/Creatinine Ratio 17, Glucose Level 131, Calcium Level 8.6, Corrected Calcium 9.4, Total Bilirubin 0.4, Aspartate Amino Transf (AST/SGOT) 48, Alanine Aminotransferase (ALT/SGPT) 39, Alkaline Phosphatase 68, Total Protein 5.3, Albumin 3.0, Procalcitonin 0.11, Neutrophils % (Manual) 90, Lymphocytes % (Manual) 9, Monocytes % (Manual) 1, Microcytosis SLIGHT, Elliptocytes SLIGHT 12/06/22 06:10: White Blood Count 21.7, Red Blood Count 3.13, Hemoglobin 9.2, Hematocrit 27, Mean Corpuscular Volume 87, Mean Corpuscular Hemoglobin 29, Mean Corpuscular Hemoglobin Concent 34, Red Cell Distribution Width 18.6, Platelet Count 500, Mean Platelet Volume 9.2, Immature Granulocyte % (Auto) 4, Neutrophils (%) (Auto) 80, Lymphocytes (%) (Auto) 9, Monocytes (%) (Auto) 5, Eosinophils (%) (Auto) 3, Basophils (%) (Auto) 0, Neutrophils # (Auto) 17.3, Lymphocytes # (Auto) 1.8, Monocytes # (Auto) 1.0, Eosinophils # (Auto) 0.6, Basophils # (Auto) 0.1, Immature Granulocyte # (Auto) 1.0, Sodium Level 132, Potassium Level 4.1, Chloride Level 97, Carbon Dioxide Level 25, Anion Gap 10, Blood Urea Nitrogen 7, Creatinine 0.63, Estimat Glomerular Filtration Rate 85, BUN/Creatinine Ratio 11, Glucose Level 73, Calcium Level 8.7, Corrected Calcium 9.5, Total Bilirubin 0.4, Aspartate Amino Transf (AST/SGOT) 43, Alanine Aminotransferase (ALT/SGPT) 44, Alkaline Phosphatase 73, Total Protein 5.3, Albumin 3.0 Discharge Home Medications: Active Scripts Active Montelukast Sodium 10 Mg Tablet 10 Mg PO HS Losartan Potassium 25 Mg Tablet 25 Mg PO 1700 7 Days hold until you see dr herrera Amlodipine Besylate 5 Mg Tablet 5 Mg PO DAILY 7 Days hold until you see dr herrera Reported Stool Softener (Docusate Sodium) 100 Mg Capsule 200 Mg PO HS Vitamin D3 (Cholecalciferol (Vitamin D3)) 50 Mcg (2000 Unit) Capsule 50 Mcg PO 1700 Ferrous Sulfate 325 Mg (65 Mg Iron) Tablet 325 Mg PO 1200 Multivitamin 1 Each Tablet 1 Each PO DAILY Vision Formula Tablet (Vit A/C/E/Zinc/Selenium/Copper) 1,000-60-30 Tablet 1 Each PO DAILY Constulose (Lactulose) 10 Gram/15 Ml Solution 15 Ml PO HS Arimidex (Anastrozole) 1 Mg Tablet 1 Mg PO DAILY Ventolin Hfa (Albuterol Sulfate) 1 Puff Puff 2 Puff IH Q6H PRN Alprazolam 0.5 Mg Tablet 0.5 Mg PO HS Instructions to patient/family Please see electronic discharge instructions given to patient. JEN HERRERA DO Dec 06, 2022 12:20
--- NOTE | 2022-12-06 13:54 | Progress Note ---
CORAL PURDY 12/06/22 1354: Progress Note 89 yo F with advanced cancer, immunosuppressed status and COPD admitted on 11/28 for bilateral pneumonia causing sepsis (HR 106 and WBC 13) and hypoxia (78% on room air) after a visit to the ER for hypoxia, weakness and SOB. She is a patient at the cancer center who had been receiving Keytruda for breast cancer with metastasis to the abdomen. On admission she was stable and placed on med- surg; 3L of supplemental oxygen by nasal canula, IV vancomycin, IV Zosin, IV solumedrol and home medications were started. Her hypoxia corrected thereafter but her oxygen requirements increased to 5-8L from 11/29 -12/03; she was weaned to 4L on 12/04 and 3L on 12/05. On 11/29, hypokalemia, hyponatremia, hypocalcemia were noted; KCl, NaCl tablets, and fluid restriction to 1200 mL were initiated. Hypokalemia/hypocalcemia resolved and hypontramia improved to 132 on 12/02 and remained stable thereafter. Anemia consistent with the patient's baseline remained stable with ferrous sulfate 325 (11/29-12/03) and IV iron sucrose (12/03 - 12/06). Leukocytosis persisted, peaking on 12/05 at 24.4 and declining to 21.7 by 12/06. Throughout her stay, the patient admitted to a productive cough SOB that diminished daily; otherwise she was alert, comfortable and denied pain. On 12/05 the patient's oncologist deemed her stable enough for discharge and fluid restriction was lifted. On 12/06 patient completed antibiotics and CXR showed persistent, but improved bilateral infiltrate; the patient and her family were provided a 1-week follow up with PCP and instructed to be conversative with fluid intake. She was discharged with home health and 3L of supplemental oxygen to be used during exertion. VIKI HERRERA DO 12/07/22 0517: Supervisory-Addendum Brief Verification & Attestation Participated in pt care: history, MDM, physical Personally performed: exam, history, MDM, supervision of care Care discussed with: Medical Student Procedures: n/a Results interpretation: Verified all documentation Verification and Attestation of Medical Student E/M Service A medical student performed and documented this service in my presence. I reviewed and verified all information documented by the medical student and made modifications to such information, when appropriate. I personally performed the physical exam and medical decision making. Viki Herrera, Dec 07, 2022,05:17 CORAL PURDY Dec 06, 2022 13:54 VIKI HERRERA DO Dec 07, 2022 05:17
== END 2022-12-06 13:31 | disposition home health service (06) | DRG 871 ==
LOC: 4TH 13:10
PROVIDERS: ADMIT Internal Medicine; ATTEND Internal Medicine
DX: A41.9 Sepsis, unspecified organism (principal); J18.9 Pneumonia, unspecified organism; J44.0 Chronic obstructive pulmonary disease with (acute) lower respiratory infection; E87.1 Hypo-osmolality and hyponatremia; C79.89 Secondary malignant neoplasm of other specified sites; E87.6 Hypokalemia; E83.51 Hypocalcemia; D64.9 Anemia, unspecified; C50.919 Malignant neoplasm of unspecified site of unspecified female breast
CPT/HCPCS: 36415; 71045; 80053; 84145; 85007; 85025; 85027; 94640; 94760; 94761

== ENCOUNTER 2023-01-11 13:01 | Outpatient (RCR) | payer MEDICARE ==
[~2023-01-11 13:01] MED LIST changes: +MONT-40 PO
== END 2023-01-22 | disposition home or self-care (01) ==
LOC: ONC 13:01
PROVIDERS: ATTEND Internal Medicine Hematology & Oncology
DX: C50.511 Malignant neoplasm of lower-outer quadrant of right female breast (principal); C78.7 Secondary malignant neoplasm of liver and intrahepatic bile duct; I10 Essential (primary) hypertension; E78.2 Mixed hyperlipidemia; Z98.890 Other specified postprocedural states; Z90.11 Acquired absence of right breast and nipple